=== PATIENT | male | born 1930 | race Caucasian/White ===

== ENCOUNTER 2018-04-21 08:54 | Inpatient (IN) | payer OTHER ==
[2018-04-21] MEDS ORDERED: SODIUM CHLORIDE 0.9% 500 ML INFUS.BAG IV ONE ×2 (09:16)
[2018-04-21] MEDS ORDERED: PIPERACILLIN/TAZOB 4.5 GM 4.5 GM in DEXTROSE 5%-WATER 100 ML IVPB ONE (09:24)
--- NOTE | 2018-04-21 09:24 | PDOC ---
History of Present Illness - General Chief Complaint: SIRS, Suspected/Possible Stated Complaint: PNEUMONIA Time Seen by Provider: 04/21/18 09:08 History Source: Patient Exam Limitations: No Limitations - History of Present Illness Initial Comments: 04/21/18 09:26 Gagan 88 YOM with h/o polycystic kidney disease, CKD stage 4, AAA s/p repair, CAD and CABG in 2007, HTN, HLD, GERD, COPD, anemia, allergies, depression from [facility] p/w progressive productive green cough, shortness of breath and malaise x 2 days, today with left sided chest pain that has since resolved. +subjective fevers and chills. Tolerating PO intake. Denies other sx as documented. PMD Dr. Schwarz Full code status 04/21/18 10:54 Past History - Past Medical History Allergies/Adverse Reactions: Allergies Allergy/AdvReac Type Severity Reaction Status Date / Time No Known Allergies Allergy Verified 04/21/18 09:18 Home Medications: Ambulatory Orders Acetaminophen [Pain Relief] 1,000 mg PO Q4H PRN 04/21/18 Aspirin 81 mg PO DAILY 04/21/18 Atorvastatin Ca [Lipitor] 40 mg PO HS 04/21/18 Budesonide/Formeterol Fumarate [SYMBICORT 80/4.5mcg -] 1 inh PO BID 04/21/18 Cholecalciferol (Vitamin D3) [Vitamin D3] 1,000 unit PO DAILY 04/21/18 Diltiazem [Cardizem -] 30 mg PO QID 04/21/18 Famotidine 20 mg PO DAILY 04/21/18 Ferrous Sulfate 325 mg PO DAILY 04/21/18 Hydralazine HCl 50 mg PO TID 04/21/18 Ipratropium/Albuterol Sulfate [Iprat-Albut 0.5-3(2.5) mg/3 ml] 3 ml IH Q6H 04/21 Mirtazapine 15 mg PO HS 04/21/18 Prednisone 5 mg PO DAILY 04/21/18 Propylene Glycol/Peg 400/Pf [Systane 0.3-0.4% Eye Drops] 1 each OP Q4H PRN 04/21 Sennosides [Senna Laxative] 8.6 mg PO HS 04/21/18 Review of Systems - Review of Systems Able to Perform ROS?: Yes Comments:: 04/21/18 09:27 GENERAL/CONSTITUTIONAL: +fever or chills and generalized weakness. HEAD, EYES, EARS, NOSE AND THROAT: No change in vision or hearing. No ear pain or discharge. No sore throat or mouth pain. No difficulty swallowing. + congestion. CARDIOVASCULAR: +chest pain RESPIRATORY: +SOB, cough, wheezing. no hemoptysis GASTROINTESTINAL No nausea/vomiting. No diarrhea or constipation. No bloody stools. GENITOURINARY: No hematuria, dysuria, frequency, urgency or other changes. MUSCULOSKELETAL: No joint or muscle swelling or pain. No neck or back pain. SKIN: No rash or changes in skin color or lesions. NEUROLOGIC: No headache, vertigo, loss of consciousness, or change in strength/ sensation. No gait instability. HEMATOLOGIC/LYMPHATIC: +anemia, no easy bruising/bleeding, or history of blood clots. ALLERGIC/IMMUNOLOGIC: +seasonal allergies All other systems reviewed and negative, or as documented in HPI. *Physical Exam - Physical Exam Comments: 04/21/18 09:28 General: malaised appearing, actively coughing. HEENT: NCAT, PERRL, EOMI, clear conjunctiva, anicteric, dry mucus membranes, clear oropharynx, no oral lesions.. Neck: neck supple, FROM Resp: mild respiratory distress, on supp O2, mild tachypnea. speaking full sentences but coughing fits. +bilateral expiratory wheezing and rhonchi at the bases. CVS: RRR, no murmurs, 2+ peripheral pulses throughout, no peripheral edema Abdomen: soft, NT, obese abdomen, no peritoneal signs. Back: nontender, normal inspection and ROM MSK: + nonpitting LE edema, HUTTON x4, ROM intact. No clubbing or cyanosis. normal bulk and tone. Extrem: no calf tenderness Neuro: alert, oriented appropriately; no focal neurologic deficits Skin: warm and well perfused, cap refill <2 sec, normal color 04/21/18 09:29 Heart Score/ECG Review - ECG Impressions Normal ECG: No Ischemic Changes: Yes Comment:: 04/21/18 10:35 EKG normal sinus rhythm, no interval abnormalities, narrow QRS, small ST depressions and TWI in V4-6, I and AVL in lateral distribution; Nonspecific T wave abnormalities, TWF in II, III, AVF in inferior distribution, no prior EKGs to compare to. ED Treatment Course - LABORATORY CBC & Chemistry Diagram: 04/21/18 09:18 04/21/18 09:18 - RADIOLOGY Radiology Studies Ordered: Category Date Time Status CHEST X-RAY PORTABLE* [RAD] Stat Radiology 04/21/18 09:08 Ordered Medical Decision Making - Medical Decision Making 04/21/18 09:30 Gagan 88 YOM with h/o polycystic kidney disease, CKD stage 4, HTN, HLD, GERD, COPD, anemia, allergies, depression from [facility] with cough, SOB and CP. DDx SOB: influenza, pleurisy, pneumonia, viral syndrome. effusion. anemia, electrolyte/metabolic derangements. dehydration. COPD exacerbation, heart failure, ACS Considered but clinically doubt based on HPI and PE: pulmonary embolism or dissection, most likely infectious vs chronic lung disease vs viral illness based on clinical sx and appearance. Vital signs reviewed, mild tachypnea, wheezing present. on 2L O2 for comfort, afebrile rectally, normotensive Prior notes reviewed, including admissions, discharges and consultations. laboratory results and imaging reviewed, basic labs and lytes wnl, notable for anemia (no priors, but baseline noted to be anemic) UA_glucose and ketones, prelim no s/s infection. CXR_no acute pathology, but left sided haziness with interstitial markings noted. Cardiac panel_neg trop, reassuring, less likely ACS/cardiac and more likely pulmonary. EKG normal sinus rhythm, no interval abnormalities, narrow QRS, small ST depressions and TWI in V4-6, I and AVL in lateral distribution; Nonspecific T wave abnormalities, TWF in II, III, AVF, no prior EKGs to compare to. ED course: episodes of Tachycardia to 120-130s, but no fever rectally and unchanged EKG. Clinically improved after interventions, including Duonebs x3 for wheezing, IV abx, IV solumedrol given h/o copd and wheezing/bronchitis flare. also ordered for Q4H albuterol nebs for wheezing and comfort. xanax for anxiolysis tylenol for low grade fever as source of tachy, which varies sputum and blood cultures pending, septic workup pursued. Influenza negative, strep pneumo Ag pending broad spectrum abx with vancomycin and zosyn obtained due to clinical pneumonia and risk factors including [facility] residence and comorbidities including chronic lung disease and CKD. cardiology cs with Dr. Cabezas, for r/o ACS, cp and abnormal EKG w/o priors. Dispo: Admit to telemetry for clinical pneumonia vs viral illness, COPD exac. Discussed results and management plan with pt and family member at bedside, agree with impression and plan admit to Dr. Syed Horan/Corey service 04/21/18 12:07 *DC/Admit/Observation/Transfer Diagnosis at time of Disposition: Pneumonia, COPD exacerbation, Wheezing, Sepsis, Chest pain - Discharge Dispostion Condition at time of disposition: Guarded Decision to Admit order: Yes Decision to Admit order Date/Time: 04/21/18 10:33 Decision to Admit Order Category Date Time Status Decision to Admit to Hospital Routine Admission 04/21/18 10:14 Ordered - Referrals - Patient Instructions - Post Discharge Activity
[2018-04-21] MEDS ORDERED: VANCOMYCIN 1,500 MG in DEXTROSE 5%-WATER - 250 ML IVPB ONE (09:25)
[2018-04-21] MEDS ORDERED: methylPREDNISolone NA SUCC 125 MG/2 ML VIAL IVPUSH ONE (09:34)
[2018-04-21] MEDS: ALBUTEROL SO4 2.5/IPRATROPIUM 0.5 INH SOL 3 ML VIAL.NEB. NEB SCH ×6 (09:35→22:26)
[2018-04-21 09:50] LABS: BASO % 0.5 % (0-2.0); EOS % 4.3 % (0-4.5); HEMATOCRIT 26.3 % (35.4-49); HEMOGLOBIN 9.1 GM/dL (11.7-16.9); LYMPH % 11.4 % (8-40); MCH 35.5 pg (25.7-33.7); MCHC 34.6 g/dl (32.0-35.9); MEAN CELL VOLUME 102.7 fl (80-96); MEAN PLT VOLUME 7.4 fl (7.5-11.1); MONO % 8.3 % (3.8-10.2); NEUT % 75.5 % (42.8-82.8); PLATELET COUNT 329 K/MM3 (134-434); RBC 2.56 M/mm3 (4.00-5.60); WHITE BLOOD COUNT 8.3 K/mm3 (4.0-10.0)
[2018-04-21 09:53] LABS: VENOUS PC02 44.3 mmHg (38-52); VENOUS PH 7.29 (7.32-7.42); VENOUS PO2 53.5 mmHg (28-48)
[2018-04-21] MEDS ORDERED: VANCOMYCIN 1,500 MG in DEXTROSE 5%-WATER - 500 ML IVPB ONE (10:06)
[2018-04-21 10:07] LABS: URINE APPEARANCE CLEAR; URINE BILIRUBIN NEGATIVE (<2.0 mg/dL); URINE COLOR STRAW; URINE GLUCOSE (UA) 1+ (NEGATIVE); URINE KETONE NEGATIVE (NEGATIVE); URINE LEUK ESTERASE NEGATIVE (NEGATIVE); URINE NITRITE NEGATIVE (NEGATIVE); URINE PROTEIN 2+ (NEGATIVE); URINE UROBILINOGEN NEGATIVE mg/dL (0.2-1.0)
[2018-04-21 10:11] LABS: INR 1.03 (0.83-1.09); PROTHROMBIN TIME (PATIENT) 12.1 SEC (9.7-13.0)
[2018-04-21 10:15] LABS: ACTIVATED PTT 29.1 SECONDS (25.2-36.5)
[2018-04-21 10:16] LABS: ALBUMIN 3.4 g/dl (3.4-5.0); ALK PHOS 135 U/L (45-117); ANION GAP 11 MMOL/L (8-16); BILIRUBIN,TOTAL 0.3 mg/dL (0.2-1); BLOOD UREA NITROGEN 36 mg/dL (7-18); CHLORIDE 113 mmol/L (98-107); CO2 22 mmol/L (21-32); CREATININE 2.7 mg/dL (0.55-1.3); GLUCOSE,RANDOM 100 mg/dL (74-106); POTASSIUM 3.5 mmol/L (3.5-5.1); SGOT/AST 11 U/L (15-37); SGPT/ALT 16 U/L (13-61); SODIUM 145 mmol/L (136-145); TOT PROT 6.5 g/dl (6.4-8.2)
[2018-04-21 10:17] LABS: URINE MUCUS RARE
[2018-04-21] MEDS ORDERED: ALPRAZolam 0.25 MG TABLET PO ONE (10:54)
[2018-04-21] MEDS ORDERED: ACETAMINOPHEN 325 MG TABLET (FP) PO PRN (11:36)
[2018-04-21] MEDS ORDERED: ALBUTEROL SO4 2.5/IPRATROPIUM 0.5 INH SOL 3 ML VIAL.NEB. NEB SCH (11:45)
[2018-04-21] MEDS ORDERED: ALBUTEROL SO4 0.083% IH SOL 2.5 MG/3 ML VIAL.NEB. NEB PRN (11:56)
[2018-04-21] MEDS ORDERED: ACETAMINOPHEN 1000 MG/100 ML VIAL (NON FORMULARY) IVPB ONE (12:06)
--- NOTE | 2018-04-21 13:37 | CON.CARD ---
Consult Consult Specialty:: Cardiology Referred by:: Dr Puentes Reason for Consultation:: cp - History of Present Illness Chief Complaint: sob cough History of Present Illness: 88 year old man with history of PCKD, CKD stage 4, AAA s/p repair, CAD and CABG in 2006, HTN, HLD, GERD, COPD, anemia, allergies, depression from [facility] admitted with progressive productive green cough, shortness of breath and malaise x 2 days, today with left sided chest pain that has since resolved. +subjective fevers and chills. No orthopnea, pnd or edema. Baseline wheelchair bound. ECG LVH with repolarization changes. started on abx for pneumonia. - History Source History Provided By: Patient, Medical Record - Smoking History Smoking history: Never smoked Home Medications - Allergies Allergies/Adverse Reactions: Allergies Allergy/AdvReac Type Severity Reaction Status Date / Time No Known Allergies Allergy Verified 04/21/18 09:18 - Home Medications Home Medications: Ambulatory Orders Acetaminophen [Pain Relief] 1,000 mg PO Q4H PRN 04/21/18 Aspirin 81 mg PO DAILY 04/21/18 Atorvastatin Ca [Lipitor] 40 mg PO HS 04/21/18 Budesonide/Formeterol Fumarate [SYMBICORT 80/4.5mcg -] 1 inh PO BID 04/21/18 Cholecalciferol (Vitamin D3) [Vitamin D3] 1,000 unit PO DAILY 04/21/18 Diltiazem [Cardizem -] 30 mg PO QID 04/21/18 Famotidine 20 mg PO DAILY 04/21/18 Ferrous Sulfate 325 mg PO DAILY 04/21/18 Hydralazine HCl 50 mg PO TID 04/21/18 Ipratropium/Albuterol Sulfate [Iprat-Albut 0.5-3(2.5) mg/3 ml] 3 ml IH Q6H 04/21 Mirtazapine 15 mg PO HS 04/21/18 Prednisone 5 mg PO DAILY 04/21/18 Propylene Glycol/Peg 400/Pf [Systane 0.3-0.4% Eye Drops] 1 each OP Q4H PRN 04/21 Sennosides [Senna Laxative] 8.6 mg PO HS 04/21/18 Vital Signs: Vital Signs Temperature 98.9 F 04/21/18 11:00 Pulse Rate 117 H 04/21/18 12:00 Respiratory Rate 24 H 04/21/18 12:00 Blood Pressure 158/85 04/21/18 12:00 O2 Sat by Pulse Oximetry (%) 97 04/21/18 12:00 Constitutional: Yes: No Distress, Calm Eyes: Yes: Conjunctiva Clear, EOM Intact HENT: Yes: Atraumatic, Normocephalic Neck: Yes: Trachea Midline Respiratory: Yes: Rhonchi (bilat change w cough) Gastrointestinal: Yes: Normal Bowel Sounds, Soft Cardiovascular: Yes: Regular Rate and Rhythm JVD: Yes Carotid Bruit: No PMI: Non-Displaced Heart Sounds: Yes: S1, S2 Edema: No Peripheral Pulses WNL: Yes - Other Data Labs, Other Data: CBC, BMP 04/21/18 09:18 04/21/18 09:18 INR, PTT INR 1.03 (0.83-1.09) 04/21/18 09:18 Troponin, BNP 04/21/18 04/21/18 09:18 11:17 Troponin I 0.04 0.05 Troponin, BNP 04/21/18 04/21/18 09:18 11:17 Troponin I 0.04 0.05 Imaging - Results Chest X-ray: Report Reviewed EKG: Report Reviewed Assessment/Plan 88 year old man with history of PCKD, CKD stage 4, AAA s/p repair, CAD and CABG in 2006, HTN, HLD, GERD, COPD, anemia, allergies, depression from [facility] admitted with progressive productive green cough, shortness of breath and malaise x 2 days, today with left sided chest pain that has since resolved. +subjective fevers and chills. No orthopnea, pnd or edema. Baseline wheelchair bound. ECG LVH with repolarization changes. started on abx for pneumonia. 1. chest pain -likely due to cough and clinically has pneumonia. -no plans for ischemia workup at present. -no need for telemetry monitoring. -no evidence of CHF on examination -treat for pneumonia, sepsis lactic acidosis.
--- NOTE | 2018-04-21 14:22 | CON.ID ---
Consult Consult Specialty:: infectious disease Referred by:: iona Reason for Consultation:: possible pneumonia - History of Present Illness Chief Complaint: cough with green sputum for two days. 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 [facility] no recent admissions 2 days history of green sputum and cough with malaise chest pain today no vomiting alert no diarrhea or dysuria influenza screen negative denies fevers or chills - History Source History Provided By: Patient, Medical Record Limitations to Obtaining History: No Limitations - Past Medical History Cardio/Vascular: Yes: CAD, HTN, Hyperlipdemia Pulmonary: Yes: Bronchitis, COPD Gastrointestinal: Yes: GERD Renal/: Yes: Renal Inusuff, Other (polycystic kidney disease) Heme/Onc: Yes: Anemia - Past Surgical History Past Surgical History: Yes: AAA Repair, CABG - Smoking History Smoking history: Never smoked - Social History Usual Living Arrangement: Group Home 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 History of Recent Travel: No (echo 2 years ago) Home Medications - Allergies Allergies/Adverse Reactions: Allergies Allergy/AdvReac Type Severity Reaction Status Date / Time No Known Allergies Allergy Verified 04/21/18 09:18 - Home Medications Home Medications: Ambulatory Orders Acetaminophen [Pain Relief] 1,000 mg PO Q4H PRN 04/21/18 Aspirin 81 mg PO DAILY 04/21/18 Atorvastatin Ca [Lipitor] 40 mg PO HS 04/21/18 Budesonide/Formeterol Fumarate [SYMBICORT 80/4.5mcg -] 1 inh PO BID 04/21/18 Cholecalciferol (Vitamin D3) [Vitamin D3] 1,000 unit PO DAILY 04/21/18 Diltiazem [Cardizem -] 30 mg PO QID 04/21/18 Famotidine 20 mg PO DAILY 04/21/18 Ferrous Sulfate 325 mg PO DAILY 04/21/18 Hydralazine HCl 50 mg PO TID 04/21/18 Ipratropium/Albuterol Sulfate [Iprat-Albut 0.5-3(2.5) mg/3 ml] 3 ml IH Q6H 04/21 Mirtazapine 15 mg PO HS 04/21/18 Prednisone 5 mg PO DAILY 04/21/18 Propylene Glycol/Peg 400/Pf [Systane 0.3-0.4% Eye Drops] 1 each OP Q4H PRN 04/21 Sennosides [Senna Laxative] 8.6 mg PO HS 04/21/18 Family Disease History - Family Disease History Family History: Denies Review of Systems - Review of Systems Constitutional: reports: Malaise Eyes: reports: No Symptoms HENT: reports: No Symptoms. denies: Difficult Swallowing, Throat Pain, Toothache Neck: reports: No Symptoms Cardiovascular: reports: Chest Pain Respiratory: reports: Cough, SOB Gastrointestinal: reports: No Symptoms Genitourinary: denies: Burning, Discharge, Dysuria Physical Exam Vital Signs: Vital Signs Temperature 98.9 F 04/21/18 11:00 Pulse Rate 117 H 04/21/18 12:00 Respiratory Rate 24 H 04/21/18 12:00 Blood Pressure 158/85 04/21/18 12:00 O2 Sat by Pulse Oximetry (%) 97 04/21/18 12:00 Constitutional: Yes: Well Nourished, No Distress, Calm Eyes: Yes: Conjunctiva Clear, EOM Intact HENT: Yes: Atraumatic, Normocephalic. No: Pharyngeal Erythema, Thrush Neck: Yes: Supple, Trachea Midline Cardiovascular: Yes: Regular Rate and Rhythm Respiratory: Yes: Rhonchi (scattered) Gastrointestinal: Yes: Normal Bowel Sounds, Soft, Abdomen, Obese. No: Tenderness, Rebound ...Rectal Exam: Yes: Deferred Edema: No Psychiatric: Yes: Alert, Oriented Labs: CBC, BMP 04/21/18 09:18 04/21/18 09:18 cultures pending Imaging - Results Chest X-ray: Report Reviewed, Image Reviewed (clear) Problem List - Problems (1) COPD exacerbation Code(s): J44.1 - CHRONIC OBSTRUCTIVE PULMONARY DISEASE W (ACUTE) EXACERBATION (2) Bronchitis Code(s): J40 - BRONCHITIS, NOT SPECIFIED ACUTE OR CHRONIC (3) CKD (chronic kidney disease) Code(s): N18.9 - CHRONIC KIDNEY DISEASE, UNSPECIFIED (4) Chest pain Code(s): R07.9 - CHEST PAIN, UNSPECIFIED Assessment/Plan suspect bronchitis but cannot r/o pneumonia will get noncontrast chest ct f/u cultures RSV antigen legionella/pneumococcal urinary antigens got vancomycin and zosyn in Ed willl switch to cefrtiaxone adjust antibiotics for CKD further management per cardiology for chest pain f/u studies
[2018-04-21] MEDS ORDERED: hydrALAZINE HCL 25 MG TABLET (FP) ONE ×2 (14:43→20:39)
[2018-04-21] MEDS ORDERED: dilTIAZem HCL 30 MG TABLET (FP) ONE ×3 (14:43→20:39)
[2018-04-21] MEDS ORDERED: CEFTRIAXONE 2 GM/100 ML BAG IVPB ONE (14:44)
[2018-04-21] MEDS ORDERED: methylPREDNISolone NA SUCC 40 MG/1 ML VIAL ONE ×2 (14:44→20:40)
[2018-04-21] MEDS: hydrALAZINE HCL 50 MG TABLET (FP) PO SCH ×2 (14:49→22:26)
[2018-04-21] MEDS: dilTIAZem HCL 30 MG TABLET (FP) PO SCH ×3 (14:50→22:26)
[2018-04-21] MEDS: CEFTRIAXONE 2 GM in DEXTROSE 5%-WATER 100 ML IVPB SCH (14:50)
[2018-04-21] MEDS ORDERED: methylPREDNISolone NA SUCC 40 MG/1 ML VIAL IVPUSH SCH (15:00)
--- NOTE | 2018-04-21 15:18 | CON.PULM ---
Consult Consult Specialty:: PULMONARY Referred by:: ROSA M Reason for Consultation:: COUGH/MUCOUS/SOB - History of Present Illness Chief Complaint: COUGH/WHEEZE/SOB/SPUTUM PRODUCTION History of Present Illness: Father Gagan 88 Y/O Male with h/o polycystic kidney disease, CKD stage 4, AAA s /p repair, CAD and CABG in 2006, HTN, HLD, GERD, COPD, anemia, allergies, depression from [facility] p/w progressive productive green cough, shortness of breath and malaise x 2 days, today with left sided chest pain that has since resolved. +subjective fevers and chills. Tolerating PO intake. Denies other sx as documented. 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 Place of : [facility] History of Recent Travel: No (echo 2 years ago) Home Medications - Allergies Allergies/Adverse Reactions: Allergies Allergy/AdvReac Type Severity Reaction Status Date / Time No Known Allergies Allergy Verified 04/21/18 09:18 - Home Medications Home Medications: Ambulatory Orders Acetaminophen [Pain Relief] 1,000 mg PO Q4H PRN 04/21/18 Aspirin 81 mg PO DAILY 04/21/18 Atorvastatin Ca [Lipitor] 40 mg PO HS 04/21/18 Budesonide/Formeterol Fumarate [SYMBICORT 80/4.5mcg -] 1 inh PO BID 04/21/18 Cholecalciferol (Vitamin D3) [Vitamin D3] 1,000 unit PO DAILY 04/21/18 Diltiazem [Cardizem -] 30 mg PO QID 04/21/18 Famotidine 20 mg PO DAILY 04/21/18 Ferrous Sulfate 325 mg PO DAILY 04/21/18 Hydralazine HCl 50 mg PO TID 04/21/18 Ipratropium/Albuterol Sulfate [Iprat-Albut 0.5-3(2.5) mg/3 ml] 3 ml IH Q6H 04/21 Mirtazapine 15 mg PO HS 04/21/18 Prednisone 5 mg PO DAILY 04/21/18 Propylene Glycol/Peg 400/Pf [Systane 0.3-0.4% Eye Drops] 1 each OP Q4H PRN 04/21 Sennosides [Senna Laxative] 8.6 mg PO HS 04/21/18 Family Disease History - Family Disease History Family History: Unremarkable Review of Systems - Review of Systems Constitutional: denies: Fever Eyes: denies: Blurred Vision HENT: denies: Difficult Swallowing Neck: denies: Decreased ROM Cardiovascular: denies: Chest Pain Respiratory: reports: Cough, Exercise Intolerance, SOB, SOB on Exertion, Wheezing. denies: Hemoptysis Gastrointestinal: denies: Abdominal Pain Genitourinary: denies: Burning Physical Exam Vital Sings: Vital Signs Temperature 98.9 F 04/21/18 11:00 Pulse Rate 117 H 04/21/18 12:00 Respiratory Rate 24 H 04/21/18 12:00 Blood Pressure 158/85 04/21/18 12:00 O2 Sat by Pulse Oximetry (%) 97 04/21/18 12:00 Constitutional: Yes: Calm Eyes: Yes: EOM Intact HENT: Yes: Normocephalic Neck: Yes: Trachea Midline Cardiovascular: Yes: Regular Rate and Rhythm Respiratory: Yes: Rhonchi, Wheezes Gastrointestinal: Yes: Normal Bowel Sounds, Abdomen, Obese Edema: Yes Edema: LLE: 1+, RLE: 1+ Integumentary: Yes: WNL Labs: CBC, BMP 04/21/18 09:18 04/21/18 09:18 Imaging - Results Chest X-ray: Report Reviewed, Image Reviewed Problem List - Problems (1) Bronchitis Code(s): J40 - BRONCHITIS, NOT SPECIFIED ACUTE OR CHRONIC (2) CKD (chronic kidney disease) Code(s): N18.9 - CHRONIC KIDNEY DISEASE, UNSPECIFIED (3) COPD exacerbation Code(s): J44.1 - CHRONIC OBSTRUCTIVE PULMONARY DISEASE W (ACUTE) EXACERBATION (4) Chest pain Code(s): R07.9 - CHEST PAIN, UNSPECIFIED (5) Pneumonia Code(s): J18.9 - PNEUMONIA, UNSPECIFIED ORGANISM (6) Sepsis Code(s): A41.9 - SEPSIS, UNSPECIFIED ORGANISM (7) Wheezing Code(s): R06.2 - WHEEZING Assessment/Plan R/O PNEUMONIA LIKELY ACUTE ASTHMATIC BRONCHITIS MULTIPLE COMORBID CONDITIONS LISTED AGREE WITH PANCULTURE/URINARY ANTIGENS INFLU SWAB - EMPIRIC ANTIBIOCS PER ID O2 SUPPLEMENTATION/BRONCHODILATORS/SHORT COURSE STEROIDS Joselin CARPENTER MD
[2018-04-21] MEDS ORDERED: ALBUTEROL SO4 2.5/IPRATROPIUM 0.5 INH SOL 3 ML VIAL.NEB. NEB ONE ×2 (16:45→20:48)
[2018-04-21] MEDS ORDERED: PIPERACILLIN/TAZOB 2.25 GM 2.25 GM in DEXTROSE 5%-WATER - 50 ML IVPB SCH (18:00)
--- NOTE | 2018-04-21 18:49 | HP ---
Admitting History and Physical - Primary Care Physician PCP: Blossom Schwarz - Admission Chief Complaint: cough, fever, chest pain ,SOB History of Present Illness: ER HISTORY History of Present Illness Initial Comments: 04/21/18 09:26 Gagan 88 YOM with h/o polycystic kidney disease, CKD stage 4, AAA s/p repair, CAD and CABG in 2006, HTN, HLD, GERD, COPD, anemia, allergies, depression from [facility] p/w progressive productive green cough, shortness of breath and malaise x 2 days, today with left sided chest pain that has since resolved. +subjective fevers and chills. Tolerating PO intake. Denies other sx as documented. PMD Dr. Schwarz Full code status Pt seen by me in ER- Has been having cough with greenish sputum, sob and chest pain x 2 days- currently chest pain-free. No dizziness, resides in [place]. 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 History of Recent Travel: No (echo 2 years ago) Home Medications - Allergies Allergies/Adverse Reactions: Allergies Allergy/AdvReac Type Severity Reaction Status Date / Time No Known Allergies Allergy Verified 04/21/18 09:18 - Home Medications Home Medications: Ambulatory Orders Acetaminophen [Pain Relief] 1,000 mg PO Q4H PRN 04/21/18 Aspirin 81 mg PO DAILY 04/21/18 Atorvastatin Ca [Lipitor] 40 mg PO HS 04/21/18 Budesonide/Formeterol Fumarate [SYMBICORT 80/4.5mcg -] 1 inh PO BID 04/21/18 Cholecalciferol (Vitamin D3) [Vitamin D3] 1,000 unit PO DAILY 04/21/18 Diltiazem [Cardizem -] 30 mg PO QID 04/21/18 Famotidine 20 mg PO DAILY 04/21/18 Ferrous Sulfate 325 mg PO DAILY 04/21/18 Hydralazine HCl 50 mg PO TID 04/21/18 Ipratropium/Albuterol Sulfate [Iprat-Albut 0.5-3(2.5) mg/3 ml] 3 ml IH Q6H 04/21 Mirtazapine 15 mg PO HS 04/21/18 Prednisone 5 mg PO DAILY 04/21/18 Propylene Glycol/Peg 400/Pf [Systane 0.3-0.4% Eye Drops] 1 each OP Q4H PRN 04/21 Sennosides [Senna Laxative] 8.6 mg PO HS 04/21/18 Review of Systems - Review of Systems Constitutional: reports: Chills, Fever, Weakness. denies: Loss of Appetite Cardiovascular: reports: Chest Pain, Shortness of Breath. denies: Palpitations Respiratory: reports: Cough, SOB, Wheezing Physical Examination Vital Signs: Vital Signs Temperature 98.9 F 04/21/18 11:00 Pulse Rate 22 L 04/21/18 14:30 Respiratory Rate 24 H 04/21/18 14:30 Blood Pressure 144/56 L 04/21/18 14:30 O2 Sat by Pulse Oximetry (%) 98 04/21/18 14:30 Constitutional: Yes: No Distress, Calm Cardiovascular: Yes: Regular Rate and Rhythm Respiratory: Yes: Diminished, Rhonchi Gastrointestinal: Yes: Normal Bowel Sounds, Soft, Abdomen, Obese. No: Tenderness Edema: Yes Edema: LLE: Trace, RLE: Trace Psychiatric: Yes: Alert, Oriented Labs: CBC, BMP 04/21/18 09:18 04/21/18 09:18 Imaging - Results Chest X-ray: Image Reviewed EKG: Image Reviewed Problem List - Problems (1) CKD (chronic kidney disease) Code(s): N18.9 - CHRONIC KIDNEY DISEASE, UNSPECIFIED Qualifiers: Chronic kidney disease stage: stage 3 (moderate) Qualified Code(s): N18.3 - Chronic kidney disease, stage 3 (moderate) (2) COPD exacerbation Code(s): J44.1 - CHRONIC OBSTRUCTIVE PULMONARY DISEASE W (ACUTE) EXACERBATION (3) Chest pain Code(s): R07.9 - CHEST PAIN, UNSPECIFIED (4) Pneumonia Code(s): J18.9 - PNEUMONIA, UNSPECIFIED ORGANISM (5) Sepsis Code(s): A41.9 - SEPSIS, UNSPECIFIED ORGANISM Assessment/Plan PLAN COPD Exacerbation -- on Solumedrol -- Appreciate Pulmonary evaluation -- nebs. O2 Chest pain -- serial cardiac enzymes -- telemetry monitoring -- check Echo -- Cardiology eval Pneumonia -- possible NH acquired pneumonia -- ID eval -- iv antibiotics -- Nebs, O2 -- lactate decreased with iv fluids CKD -- unknown baseline- will need to get NH records -- monitor renal function
[2018-04-21] MEDS ORDERED: ATORVASTATIN CA 40 MG TABLET (FP) ONE (20:39)
[2018-04-21] MEDS ORDERED: MIRTAZAPINE 15 MG TABLET (FP) ONE (20:40)
[2018-04-21] MEDS: methylPREDNISolone NA SUCC 40 MG/1 ML VIAL IVPUSH SCH (22:26)
[2018-04-21] MEDS: BUDESONIDE/FORMETEROL FUMARATE 80/4.5 mcg INHALER IH SCH (22:26)
[2018-04-21] MEDS: SENNOSIDES 8.6MG TABLET (FP) PO SCH (22:26)
[2018-04-21] MEDS: MIRTAZAPINE 15 MG TABLET (FP) PO SCH (22:26)
[2018-04-21] MEDS: ATORVASTATIN CA 40 MG TABLET (FP) PO SCH (22:26)
[2018-04-22] MEDS ORDERED: hydrALAZINE HCL 25 MG TABLET (FP) ONE ×2 (02:47→16:16)
[2018-04-22] MEDS ORDERED: methylPREDNISolone NA SUCC 40 MG/1 ML VIAL ONE ×2 (02:48→16:16)
[2018-04-22] MEDS: methylPREDNISolone NA SUCC 40 MG/1 ML VIAL IVPUSH SCH ×4 (03:00→22:31)
[2018-04-22] MEDS: hydrALAZINE HCL 50 MG TABLET (FP) PO SCH ×3 (05:52→22:31)
[2018-04-22 07:00] LABS: BASO % 0.1 % (0-2.0); HEMATOCRIT 26.5 % (35.4-49); HEMOGLOBIN 9.1 GM/dL (11.7-16.9); LYMPH % 3.6 % (8-40); MCH 35.3 pg (25.7-33.7); MCHC 34.4 g/dl (32.0-35.9); MEAN CELL VOLUME 102.7 fl (80-96); MEAN PLT VOLUME 7.8 fl (7.5-11.1); MONO % 1.3 % (3.8-10.2); PLATELET COUNT 340 K/MM3 (134-434); RBC 2.58 M/mm3 (4.00-5.60); RDW 14.9 % (11.9-15.9); WHITE BLOOD COUNT 11.8 K/mm3 (4.0-10.0)
[2018-04-22 07:15] LABS: ALBUMIN 3.4 g/dl (3.4-5.0); ALK PHOS 117 U/L (45-117); ANION GAP 13 MMOL/L (8-16); BILIRUBIN,TOTAL 0.3 mg/dL (0.2-1); BLOOD UREA NITROGEN 38 mg/dL (7-18); CALCIUM 8.1 mg/dL (8.5-10.1); CHLORIDE 112 mmol/L (98-107); CO2 19 mmol/L (21-32); CREATININE 2.9 mg/dL (0.55-1.3); GLUCOSE,RANDOM 210 mg/dL (74-106); POTASSIUM 3.9 mmol/L (3.5-5.1); SGOT/AST 10 U/L (15-37); SGPT/ALT 15 U/L (13-61); SODIUM 143 mmol/L (136-145); TOT PROT 6.8 g/dl (6.4-8.2)
[2018-04-22] MEDS: ALBUTEROL SO4 2.5/IPRATROPIUM 0.5 INH SOL 3 ML VIAL.NEB. NEB SCH ×4 (08:46→21:31)
[2018-04-22] MEDS: dilTIAZem HCL 30 MG TABLET (FP) PO SCH ×4 (08:48→23:07)
[2018-04-22] MEDS ORDERED: PIPERACILLIN/TAZOB 2.25 GM 2.25 GM in DEXTROSE 5%-WATER - 50 ML IVPB SCH (10:00)
[2018-04-22] MEDS: BUDESONIDE/FORMETEROL FUMARATE 80/4.5 mcg INHALER IH SCH ×2 (10:06→22:37)
--- NOTE | 2018-04-22 10:06 | PN ---
Progress Note (short form) - Note Progress Note: continues to cough no chest pain hungry Vital Signs Period Temp Pulse Resp BP Sys/Cruz Pulse Ox Last 24 Hr 97.8 F-98.9 F 22-135 20-32 134-174/56-85 96-99 cor-rrr lungs bilateral rhonchi abd soft,nt ext no edema CBC, BMP 04/22/18 06:30 04/22/18 06:30 Microbiology 04/21/18 09:18 Blood - Peripheral Venous Blood Culture - Preliminary NO GROWTH OBTAINED AFTER 24 HOURS, INCUBATION TO CONTINUE FOR 4 DAYS. 04/21/18 09:18 Blood - Peripheral Venous Blood Culture - Preliminary NO GROWTH OBTAINED AFTER 24 HOURS, INCUBATION TO CONTINUE FOR 4 DAYS. 04/21/18 12:14 Sputum - Expectorated Gram Stain - Final 04/21/18 12:14 Sputum - Expectorated Sputum Culture - Preliminary Proteus Species Alpha Hemolytic Streptococcus 04/21/18 09:18 Urine - Urine Clean Catch Urine Culture - Final 04/21/18 09:50 Nasopharyngeal Swab Influenza Types A,B Antigen - Final 04/21/18 09:50 Nasopharyngeal Swab - Final chest ct- no infiltrate a/p suspect bronchitis copd exacerbation CKD continue ceftriaxone Problem List - Problems (1) COPD exacerbation Code(s): J44.1 - CHRONIC OBSTRUCTIVE PULMONARY DISEASE W (ACUTE) EXACERBATION (2) Bronchitis Code(s): J40 - BRONCHITIS, NOT SPECIFIED ACUTE OR CHRONIC (3) CKD (chronic kidney disease) Code(s): N18.9 - CHRONIC KIDNEY DISEASE, UNSPECIFIED Qualifiers: Chronic kidney disease stage: stage 3 (moderate) Qualified Code(s): N18.3 - Chronic kidney disease, stage 3 (moderate) (4) Chest pain Code(s): R07.9 - CHEST PAIN, UNSPECIFIED
--- NOTE | 2018-04-22 10:32 | PN ---
Progress Note (short form) - Note Progress Note: pt seen/ examined in er. chart reviewed. still coughing says feels better though no distress Vital Signs Temp 98.2 F 04/22/18 05:38 Pulse 79 04/22/18 05:38 Resp 22 H 04/22/18 05:38 BP 163/71 04/22/18 05:38 Pulse Ox 96 04/22/18 01:38 Intake & Output 04/21/18 04/21/18 04/22/18 11:59 23:59 11:59 Output Total 600 Balance -600 Weight Output: Urine 600 Void 600 Other: Voiding Method Urinal Height Body Mass Index (BMI) Weight Measurement Method Active Medications Acetaminophen (Tylenol -) 650 mg PO Q6H PRN PRN Reason: FEVER Albuterol Sulfate (Ventolin 0.083% Nebulizer Soln -) 1 amp NEB Q4H PRN PRN Reason: SHORT OF BREATH/WHEEZING Albuterol/Ipratropium (Duoneb -) 1 amp NEB RQID [facility] Last Admin: 04/21/18 22:26 Dose: 1 amp Aspirin (Asa -) 81 mg PO DAILY [facility] Atorvastatin Calcium (Lipitor -) 40 mg PO HS [facility] Last Admin: 04/21/18 22:26 Dose: 40 mg Budesonide/Formoterol Fumarate (Symbicort 80/4.5mcg -) 1 puff IH BID [facility] Last Admin: 04/21/18 22:26 Dose: 1 puff Diltiazem HCl (Cardizem -) 30 mg PO Q6HPO [facility] Hydralazine HCl (Apresoline -) 50 mg PO TID [facility] Last Admin: 04/22/18 05:52 Dose: 50 mg Ceftriaxone Sodium 2 gm/ (Dextrose) 100 mls @ 100 mls/hr IVPB DAILY [facility]; Protocol Last Admin: 04/21/18 14:50 Dose: 100 mls/hr Methylprednisolone Sodium Succinate (Solu-Medrol -) 40 mg IVPUSH Q6H-IV [facility] Last Admin: 04/22/18 03:00 Dose: 40 mg Mirtazapine (Remeron -) 15 mg PO HS [facility] Last Admin: 04/21/18 22:26 Dose: 15 mg Pantoprazole Sodium (Protonix -) 40 mg PO DAILY [facility] Senna (Senna -) 1 tab PO [facility] Last Admin: 04/21/18 22:26 Dose: 1 tab CBC, BMP 04/22/18 06:30 04/22/18 06:30 Microbiology 04/21/18 09:18 Blood Culture - Preliminary Blood - Peripheral Venous NO GROWTH OBTAINED AFTER 24 HOURS, INCUBATION TO CONTINUE FOR 4 DAYS. 04/21/18 09:18 Blood Culture - Preliminary Blood - Peripheral Venous NO GROWTH OBTAINED AFTER 24 HOURS, INCUBATION TO CONTINUE FOR 4 DAYS. 04/21/18 12:14 Gram Stain - Final Sputum - Expectorated Sputum Culture - Preliminary Proteus Species Alpha Hemolytic Streptococcus 04/21/18 09:18 Urine Culture - Final Urine - Urine Clean Catch 04/21/18 09:50 Influenza Types A,B Antigen - Final Nasopharyngeal Swab - Final ct chest - Pending Physical Examination Constitutional: Yes: No Distress, comfortable. Obese Cardiovascular: Yes: Regular Rate and Rhythm Respiratory: Yes: Diminished, Bilateral Rhonchi Gastrointestinal: Yes: Normal Bowel Sounds, Soft, Abdomen, Obese. No: Tenderness Edema: Yes Edema: LLE: Trace, RLE: Trace Psychiatric: Yes: Alert, Oriented Imaging - Results Chest X-ray: Image Reviewed EKG: Image Reviewed Problem List - Problems (1) CKD (chronic kidney disease) Code(s): N18.9 - CHRONIC KIDNEY DISEASE, UNSPECIFIED Qualifiers: Chronic kidney disease stage: stage 3 (moderate) Qualified Code(s): N18.3 - Chronic kidney disease, stage 3 (moderate) (2) COPD exacerbation Code(s): J44.1 - CHRONIC OBSTRUCTIVE PULMONARY DISEASE W (ACUTE) EXACERBATION (3) Chest pain Code(s): R07.9 - CHEST PAIN, UNSPECIFIED (4) Pneumonia Code(s): J18.9 - PNEUMONIA, UNSPECIFIED ORGANISM (5) Sepsis Code(s): A41.9 - SEPSIS, UNSPECIFIED ORGANISM Assessment/Plan -- on Solumedrol -- Abx -- nebs. O2 - ct chest - continue other meds - dvt prophylaxis - will follow
[2018-04-22] MEDS: ASPIRIN 81 MG CHEWABLE TABLETS PO SCH (10:48)
[2018-04-22] MEDS: PANTOPRAZOLE 40 MG TABLET (FP) PO SCH (10:49)
[2018-04-22] MEDS: CEFTRIAXONE 2 GM in DEXTROSE 5%-WATER 100 ML IVPB SCH (11:52)
[2018-04-22] MEDS: ENOXAPARIN NA (PORCINE) 30 MG/0.3 ML DISP.SYRIN SQ SCH (11:52)
[2018-04-22] MEDS ORDERED: CEFTRIAXONE 2 GM/100 ML BAG IVPB ONE (11:53)
[2018-04-22] MEDS ORDERED: ENOXAPARIN NA (PORCINE) 30 MG/0.3 ML DISP.SYRIN SQ ONE (11:53)
--- NOTE | 2018-04-22 11:58 | EKG ---
Test Reason : Blood Pressure : / mmHG Vent. Rate : 091 BPM Atrial Rate : 091 BPM P-R Int : 000 ms QRS Dur : 102 ms QT Int : 406 ms P-R-T Axes : 000 022 259 degrees QTc Int : 499 ms PROBABLE SINUS RHYTHM PROLONGED QT ABNORMAL ECG WHEN COMPARED WITH ECG OF 21-APR-2018 09:09, T WAVE VARIATION Confirmed by AURA FITZPATRICK MD ([id number]) on 04/22/2018 11:58:07 AM Referred By: Confirmed By:AURA FITZPATRICK MD
--- NOTE | 2018-04-22 11:58 | EKG ---
Test Reason : Blood Pressure : / mmHG Vent. Rate : 078 BPM Atrial Rate : 078 BPM P-R Int : 000 ms QRS Dur : 098 ms QT Int : 398 ms P-R-T Axes : 000 022 114 degrees QTc Int : 453 ms SINUS RHYTHM NONSPECIFIC ST AND T WAVE ABNORMALITY ABNORMAL ECG NO PREVIOUS ECGS AVAILABLE Confirmed by AURA FITZPATRICK MD ([id number]) on 04/22/2018 11:58:20 AM Referred By: Confirmed By:AURA FITZPATRICK MD
--- NOTE | 2018-04-22 13:13 | PN ---
Progress Note (short form) - Note Progress Note: PULMONARY States he feels much better. Wants to go back to [facility]. +nonproductive cough. Vital Signs Period Temp Pulse Resp BP Sys/Cruz Pulse Ox Last 24 Hr 97.8 F-98.2 F 22-121 20-26 134-163/56-82 96-98 Gen: mildly tachypneic with speaking Heart: RRR Lung: bilateral rhonchi Abd: soft, nontender Ext: no edema CBC, BMP 04/22/18 06:30 04/22/18 06:30 Active Medications Acetaminophen (Tylenol -) 650 mg PO Q6H PRN PRN Reason: FEVER Albuterol Sulfate (Ventolin 0.083% Nebulizer Soln -) 1 amp NEB Q4H PRN PRN Reason: SHORT OF BREATH/WHEEZING Albuterol/Ipratropium (Duoneb -) 1 amp NEB RQID [facility] Last Admin: 04/22/18 11:52 Dose: Not Given Aspirin (Asa -) 81 mg PO DAILY [facility] Last Admin: 04/22/18 10:48 Dose: 81 mg Atorvastatin Calcium (Lipitor -) 40 mg PO HS [facility] Last Admin: 04/21/18 22:26 Dose: 40 mg Budesonide/Formoterol Fumarate (Symbicort 80/4.5mcg -) 1 puff IH BID [facility] Last Admin: 04/21/18 22:26 Dose: 1 puff Diltiazem HCl (Cardizem -) 30 mg PO Q6HPO [facility] Last Admin: 04/22/18 12:19 Dose: 30 mg Enoxaparin Sodium (Lovenox -) 30 mg SQ DAILY [facility] Last Admin: 04/22/18 11:52 Dose: 30 mg Hydralazine HCl (Apresoline -) 50 mg PO TID [facility] Last Admin: 04/22/18 05:52 Dose: 50 mg Ceftriaxone Sodium 2 gm/ (Dextrose) 100 mls @ 100 mls/hr IVPB DAILY [facility]; Protocol Last Admin: 04/22/18 11:52 Dose: 100 mls/hr Methylprednisolone Sodium Succinate (Solu-Medrol -) 40 mg IVPUSH Q6H-IV [facility] Last Admin: 04/22/18 09:48 Dose: 40 mg Mirtazapine (Remeron -) 15 mg PO HS [facility] Last Admin: 04/21/18 22:26 Dose: 15 mg Pantoprazole Sodium (Protonix -) 40 mg PO DAILY [facility] Last Admin: 04/22/18 10:49 Dose: 40 mg Senna (Senna -) 1 tab PO [facility] Last Admin: 04/21/18 22:26 Dose: 1 tab A/P Acute Bronchitis Acute COPD Exacerbation CAD s/p CABG CKD HTN Hyperlipidemia - continue medrol at current dose - inhaled bronchodilators standing and PRN - antibiotics per ID - O2 to keep SpO2 >90% - DVT prophylaxis
--- NOTE | 2018-04-22 14:15 | PN ---
Progress Note, Physician Chief Complaint: Cough Feeling better - Current Medication List Current Medications: Active Medications Acetaminophen (Tylenol -) 650 mg PO Q6H PRN PRN Reason: FEVER Albuterol Sulfate (Ventolin 0.083% Nebulizer Soln -) 1 amp NEB Q4H PRN PRN Reason: SHORT OF BREATH/WHEEZING Albuterol/Ipratropium (Duoneb -) 1 amp NEB RQID [facility] Last Admin: 04/22/18 11:52 Dose: Not Given Aspirin (Asa -) 81 mg PO DAILY [facility] Last Admin: 04/22/18 10:48 Dose: 81 mg Atorvastatin Calcium (Lipitor -) 40 mg PO HS [facility] Last Admin: 04/21/18 22:26 Dose: 40 mg Budesonide/Formoterol Fumarate (Symbicort 80/4.5mcg -) 1 puff IH BID [facility] Last Admin: 04/21/18 22:26 Dose: 1 puff Diltiazem HCl (Cardizem -) 30 mg PO Q6HPO [facility] Last Admin: 04/22/18 12:19 Dose: 30 mg Enoxaparin Sodium (Lovenox -) 30 mg SQ DAILY [facility] Last Admin: 04/22/18 11:52 Dose: 30 mg Hydralazine HCl (Apresoline -) 50 mg PO TID [facility] Last Admin: 04/22/18 05:52 Dose: 50 mg Ceftriaxone Sodium 2 gm/ (Dextrose) 100 mls @ 100 mls/hr IVPB DAILY [facility]; Protocol Last Admin: 04/22/18 11:52 Dose: 100 mls/hr Methylprednisolone Sodium Succinate (Solu-Medrol -) 40 mg IVPUSH Q6H-IV [facility] Last Admin: 04/22/18 09:48 Dose: 40 mg Mirtazapine (Remeron -) 15 mg PO HS [facility] Last Admin: 04/21/18 22:26 Dose: 15 mg Pantoprazole Sodium (Protonix -) 40 mg PO DAILY [facility] Last Admin: 04/22/18 10:49 Dose: 40 mg Senna (Senna -) 1 tab PO HS [facility] Last Admin: 04/21/18 22:26 Dose: 1 tab - Objective Vital Signs: Vital Signs Temperature 98.2 F 04/22/18 05:38 Pulse Rate 79 04/22/18 05:38 Respiratory Rate 22 H 04/22/18 05:38 Blood Pressure 163/71 04/22/18 05:38 O2 Sat by Pulse Oximetry (%) 96 04/22/18 01:38 Constitutional: Yes: Well Nourished, Mild Distress Eyes: Yes: Conjunctiva Clear, EOM Intact HENT: Yes: Atraumatic, Normocephalic Neck: Yes: Supple Cardiovascular: Yes: Regular Rate and Rhythm, S1, S2. No: JVD Respiratory: Yes: Regular, Tachypnea, Wheezes. No: Rales Gastrointestinal: Yes: Normal Bowel Sounds, Soft Edema: No Labs: CBC, BMP 04/22/18 06:30 04/22/18 06:30 INR, PTT INR 1.03 (0.83-1.09) 04/21/18 09:18 Problem List - Problems (1) Bronchitis Code(s): J40 - BRONCHITIS, NOT SPECIFIED ACUTE OR CHRONIC (2) CKD (chronic kidney disease) Code(s): N18.9 - CHRONIC KIDNEY DISEASE, UNSPECIFIED Qualifiers: Chronic kidney disease stage: stage 3 (moderate) Qualified Code(s): N18.3 - Chronic kidney disease, stage 3 (moderate) (3) Chest pain Code(s): R07.9 - CHEST PAIN, UNSPECIFIED Assessment/Plan 88 year old man with history of PCKD, CKD stage 4, AAA s/p repair, CAD and CABG in 2006, HTN, HLD, GERD, COPD, anemia, allergies, depression from [facility] admitted with progressive productive green cough, shortness of breath and malaise x 2 days, today with left sided chest pain that has since resolved. +subjective fevers and chills. No orthopnea, pnd or edema. Baseline wheelchair bound. ECG LVH with repolarization changes. started on abx for pneumonia. Continue antibiotic therapy. Will see as needed.
[2018-04-22 14:38] LABS: ANISOCYTOSIS 1+; MACROCYTOSIS 0; OVALOCYTE 1+; PLATELET ESTIMATE NORMAL
[2018-04-22] MEDS: SENNOSIDES 8.6MG TABLET (FP) PO SCH (22:31)
[2018-04-22] MEDS: MIRTAZAPINE 15 MG TABLET (FP) PO SCH (22:31)
[2018-04-22] MEDS: ATORVASTATIN CA 40 MG TABLET (FP) PO SCH (22:31)
[2018-04-23] MEDS: methylPREDNISolone NA SUCC 40 MG/1 ML VIAL IVPUSH SCH ×4 (02:47→21:47)
[2018-04-23 03:26] VITALS: BMI 32.8
[2018-04-23] MEDS: hydrALAZINE HCL 50 MG TABLET (FP) PO SCH ×3 (06:14→21:47)
[2018-04-23] MEDS: dilTIAZem HCL 30 MG TABLET (FP) PO SCH ×4 (06:14→23:00)
--- NOTE | 2018-04-23 06:21 | RAPID ---
Physical Examination Vital Signs: Vital Signs Temperature 97.6 F 04/23/18 01:55 Pulse Rate 72 04/23/18 01:55 Respiratory Rate 18 04/23/18 01:55 Blood Pressure 152/82 04/23/18 01:55 O2 Sat by Pulse Oximetry (%) 97 04/22/18 22:00 Findings/Remarks: Rapid Response was called around 6 am. Per nurse patient was not at baseline. He had been combative and active all night with the nurse. Upon sternal rub patient yelled and moved all extremities. He appeared to go back to seep after. Patients oxygen saturation was 96% on 2L NC. Babinski was downward going, patient was able to move upper extremity to localize pain, patient opened eyes to sternal rub, patients pupils were reactive to light. Patient received a nebulizer treatment. EKG was done and only showed PVC. CXR and head CT ordered. ABG, CBC, CMP, and lactic acid ordered. Patients saturation on room air ranged from 92-95% BP 155/85 pulse 74 Labs: CBC, BMP 04/22/18 06:30 04/22/18 06:30
[2018-04-23 06:27] LABS: BASO % 0.1 % (0-2.0); HEMATOCRIT 27.3 % (35.4-49); HEMOGLOBIN 9.5 GM/dL (11.7-16.9); MCH 35.3 pg (25.7-33.7); MCHC 34.8 g/dl (32.0-35.9); MEAN CELL VOLUME 101.5 fl (80-96); MONO % 1.9 % (3.8-10.2); PLATELET COUNT 370 K/MM3 (134-434); RBC 2.69 M/mm3 (4.00-5.60); RDW 15.1 % (11.9-15.9); WHITE BLOOD COUNT 14.5 K/mm3 (4.0-10.0)
[2018-04-23 06:37] LABS: ARTERIAL BLD GAS O2 SATURATION 98.8 % (90-98.9); ARTERIAL BLOOD GAS PCO2 35.4 mmHg (35-45); ARTERIAL BLOOD GAS pH 7.36 (7.35-7.45)
[2018-04-23 06:45] LABS: ALLENS TEST POSITIVE
[2018-04-23 07:00] LABS: ALBUMIN 3.6 g/dl (3.4-5.0); ALK PHOS 108 U/L (45-117); ANION GAP 10 MMOL/L (8-16); BILIRUBIN,TOTAL 0.3 mg/dL (0.2-1); BLOOD UREA NITROGEN 43 mg/dL (7-18); CALCIUM 8.5 mg/dL (8.5-10.1); CHLORIDE 113 mmol/L (98-107); CO2 21 mmol/L (21-32); CREATININE 2.6 mg/dL (0.55-1.3); GLUCOSE,RANDOM 164 mg/dL (74-106); POTASSIUM 3.9 mmol/L (3.5-5.1); SGOT/AST 24 U/L (15-37); SGPT/ALT 18 U/L (13-61); SODIUM 145 mmol/L (136-145)
[2018-04-23] MEDS: ALBUTEROL SO4 2.5/IPRATROPIUM 0.5 INH SOL 3 ML VIAL.NEB. NEB SCH ×4 (07:35→20:23)
[2018-04-23] MEDS ORDERED: PT OWN MED DRAWER 7, Y5N ONE (09:24)
[2018-04-23] MEDS: PANTOPRAZOLE 40 MG TABLET (FP) PO SCH (09:26)
[2018-04-23] MEDS: ASPIRIN 81 MG CHEWABLE TABLETS PO SCH (09:27)
[2018-04-23] MEDS: BUDESONIDE/FORMETEROL FUMARATE 80/4.5 mcg INHALER IH SCH ×2 (09:28→21:47)
[2018-04-23 09:47] LABS: ANISOCYTOSIS 1+; MACROCYTOSIS 1+; PLATELET ESTIMATE NORMAL
[2018-04-23] MEDS ORDERED: PNEUMOC 13-VAL CONJ-DIP CRM/PF 0.5 ML DISP.SYRIN IM ONE (10:00)
[2018-04-23] MEDS ORDERED: DEXTROSE 5%-WATER 100 ML IVPB ONE (11:31)
[2018-04-23] MEDS: ENOXAPARIN NA (PORCINE) 30 MG/0.3 ML DISP.SYRIN SQ SCH (11:34)
[2018-04-23] MEDS: CEFTRIAXONE 2 GM in DEXTROSE 5%-WATER 100 ML IVPB SCH (11:37)
--- NOTE | 2018-04-23 12:07 | EKG ---
Test Reason : Blood Pressure : / mmHG Vent. Rate : 076 BPM Atrial Rate : 076 BPM P-R Int : 198 ms QRS Dur : 110 ms QT Int : 404 ms P-R-T Axes : 049 -02 231 degrees QTc Int : 454 ms SINUS RHYTHM WITH OCCASIONAL PREMATURE VENTRICULAR COMPLEXES AND PREMATURE ATRIAL COMPLEXES INFERIOR INFARCT , AGE UNDETERMINED ABNORMAL ECG Confirmed by MD VJ, NITESH ([id number]) on 04/23/2018 12:06:41 PM Referred By: Confirmed By:NITESH ZABALA MD
--- NOTE | 2018-04-23 12:09 | PN ---
Progress Note (short form) - Note Progress Note: s/p rapid response was unresponsive this AM he was combative last night Now he is awake and alert and making sense Did not receive any sedation last night per RN Vital Signs - 24 hr 04/22/18 04/22/18 04/22/18 14:40 18:26 22:00 Temperature 98.1 F 98.4 F Pulse Rate 85 84 Respiratory 20 21 H 18 Rate Blood Pressure 177/80 H 180/86 H O2 Sat by Pulse 97 Oximetry (%) 04/23/18 04/23/18 04/23/18 01:55 05:30 06:00 Temperature 97.6 F 97.4 F L 97.4 F L Pulse Rate 72 77 72 Respiratory 18 24 H 22 H Rate Blood Pressure 152/82 155/86 155/86 O2 Sat by Pulse Oximetry (%) 04/23/18 04/23/18 08:43 09:00 Temperature 97.8 F Pulse Rate 81 Respiratory 20 Rate Blood Pressure 141/74 O2 Sat by Pulse 96 Oximetry (%) Current Medications Generic Name Dose Route Start Last Admin Trade Name Freq PRN Reason Stop Dose Admin Acetaminophen 650 mg 04/21/18 11:36 Tylenol - PO Q6H PRN FEVER Albuterol Sulfate 1 amp 04/21/18 11:56 04/23/18 05:53 Ventolin 0.083% Nebulizer Soln - NEB 1 amp Q4H PRN Administration SHORT OF BREATH/WHEEZING Albuterol/Ipratropium 1 amp 04/21/18 13:01 04/23/18 11:34 Duoneb - NEB 1 amp RQID [facility] Administration Aspirin 81 mg 04/22/18 10:00 04/23/18 09:27 Asa - PO 81 mg DAILY [facility] Administration Atorvastatin Calcium 40 mg 04/21/18 22:00 04/22/18 22:31 Lipitor - PO 40 mg HS [facility]G Administration Budesonide/Formoterol Fumarate 1 puff 04/21/18 22:00 04/23/18 09:28 Symbicort 80/4.5mcg - IH 1 puff BID [facility] Administration Diltiazem HCl 30 mg 04/22/18 07:45 04/23/18 11:52 Cardizem - PO 30 mg Q6HPO [facility] Administration Enoxaparin Sodium 30 mg 04/22/18 11:45 04/23/18 11:34 Lovenox - SQ 30 mg DAILY [facility] Administration Hydralazine HCl 50 mg 04/21/18 14:00 04/23/18 06:14 Apresoline - PO Not Given TID [facility] Ceftriaxone Sodium 2 gm/ 100 mls @ 100 mls/hr 04/21/18 14:15 04/23/18 11:37 Dextrose IVPB 100 mls/hr DAILY [facility] Administration Protocol Methylprednisolone Sodium Succinate 40 mg 04/21/18 15:19 04/23/18 11:34 Solu-Medrol - IVPUSH 40 mg Q6H-IV [facility] Administration Mirtazapine 15 mg 04/21/18 22:00 04/22/18 22:31 Remeron - PO 15 mg HS [facility] Administration Pantoprazole Sodium 40 mg 04/22/18 10:00 04/23/18 09:26 Protonix - PO 40 mg DAILY [facility] Administration Senna 1 tab 04/21/18 22:00 04/22/18 22:31 Senna - PO Not Given HS [facility] Laboratory Results - last 24 hr 04/22/18 04/22/18 04/23/18 06:30 13:56 05:51 WBC RBC Hgb Hct MCV MCH MCHC RDW Plt Count MPV Absolute Neuts (auto) Neutrophils % Neutrophils % (Manual) 96.0 H Band Neutrophils % 0.0 Lymphocytes % Lymphocytes % (Manual) 3.0 L Monocytes % Monocytes % (Manual) 1 L Eosinophils % Eosinophils % (Manual) 0.0 Basophils % Basophils % (Manual) 0.0 Myelocytes % (Man) 0 Promyelocytes % (Man) 0 Blast Cells % (Manual) 0 Nucleated RBC % Metamyelocytes 0 Hypochromia 0 Platelet Estimate Normal Polychromasia 0 Poikilocytosis 1+ Anisocytosis 1+ Microcytosis 1+ Macrocytosis 0 Ovalocytes 1+ Schistocytes Anticoagulation Therapy Puncture Site ABG pH ABG pCO2 at Pt Temp ABG pO2 at Pt Temp ABG HCO3 ABG O2 Sat (Measured) ABG O2 Content ABG Base Excess Aly Test O2 Delivery Device Oxygen Flow Rate Vent Mode Vent Rate Mechanical Rate Pressure Support Vent Sodium Potassium Chloride Carbon Dioxide Anion Gap BUN Creatinine Creat Clearance w eGFR POC Glucometer [id number] 176 Random Glucose Lactic Acid Calcium Total Bilirubin AST ALT Alkaline Phosphatase Total Protein Albumin 04/23/18 04/23/18 04/23/18 06:00 06:15 06:15 WBC 14.5 H RBC 2.69 L Hgb 9.5 L Hct 27.3 L MCV 101.5 H MCH 35.3 H MCHC 34.8 RDW 15.1 Plt Count 370 MPV 8.0 Absolute Neuts (auto) 13.7 H Neutrophils % 95.0 H Neutrophils % (Manual) 94.8 H Band Neutrophils % 0.0 Lymphocytes % 3.0 L Lymphocytes % (Manual) 3.1 L Monocytes % 1.9 L Monocytes % (Manual) 2 L D Eosinophils % 0.0 Eosinophils % (Manual) 0.0 Basophils % 0.1 Basophils % (Manual) 0.0 Myelocytes % (Man) 0 Promyelocytes % (Man) 0 Blast Cells % (Manual) 0 Nucleated RBC % 0 Metamyelocytes 0 Hypochromia 0 Platelet Estimate Normal Polychromasia 0 Poikilocytosis 1+ Anisocytosis 1+ Microcytosis 0 Macrocytosis 1+ Ovalocytes Schistocytes 1+ Anticoagulation Therapy No Result Required. Puncture Site Right radial ABG pH 7.36 ABG pCO2 at Pt Temp 35.4 ABG pO2 at Pt Temp 126.0 H ABG HCO3 19.4 L ABG O2 Sat (Measured) 98.8 ABG O2 Content 11.4 L ABG Base Excess -5.0 L Aly Test Positive O2 Delivery Device Aerosal tx Oxygen Flow Rate Yes Vent Mode No Result Required. Vent Rate No Result Required. Mechanical Rate No Result Required. Pressure Support Vent No Result Required. Sodium 145 Potassium 3.9 Chloride 113 H Carbon Dioxide 21 Anion Gap 10 BUN 43 H Creatinine 2.6 H Creat Clearance w eGFR 23.52 POC Glucometer Random Glucose 164 H Lactic Acid Calcium 8.5 Total Bilirubin 0.3 AST 24 ALT 18 Alkaline Phosphatase 108 Total Protein 7.0 Albumin 3.6 04/23/18 06:15 WBC RBC Hgb Hct MCV MCH MCHC RDW Plt Count MPV Absolute Neuts (auto) Neutrophils % Neutrophils % (Manual) Band Neutrophils % Lymphocytes % Lymphocytes % (Manual) Monocytes % Monocytes % (Manual) Eosinophils % Eosinophils % (Manual) Basophils % Basophils % (Manual) Myelocytes % (Man) Promyelocytes % (Man) Blast Cells % (Manual) Nucleated RBC % Metamyelocytes Hypochromia Platelet Estimate Polychromasia Poikilocytosis Anisocytosis Microcytosis Macrocytosis Ovalocytes Schistocytes Anticoagulation Therapy Puncture Site ABG pH ABG pCO2 at Pt Temp ABG pO2 at Pt Temp ABG HCO3 ABG O2 Sat (Measured) ABG O2 Content ABG Base Excess Aly Test O2 Delivery Device Oxygen Flow Rate Vent Mode Vent Rate Mechanical Rate Pressure Support Vent Sodium Potassium Chloride Carbon Dioxide Anion Gap BUN Creatinine Creat Clearance w eGFR POC Glucometer Random Glucose Lactic Acid 1.3 Calcium Total Bilirubin AST ALT Alkaline Phosphatase Total Protein Albumin S1 S2 RRR Lungs ronchi+ Abd- soft, NT No edema PLAN s/p AMS-- Ct head negative EKG- NSR Labs noted ?steroid , ?remeron Will dc remeron monitor BGM noted elevated sugars check A1C ABG noted Problem List - Problems (1) CKD (chronic kidney disease) Code(s): N18.9 - CHRONIC KIDNEY DISEASE, UNSPECIFIED Qualifiers: Chronic kidney disease stage: stage 3 (moderate) Qualified Code(s): N18.3 - Chronic kidney disease, stage 3 (moderate) (2) COPD exacerbation Code(s): J44.1 - CHRONIC OBSTRUCTIVE PULMONARY DISEASE W (ACUTE) EXACERBATION (3) Chest pain Code(s): R07.9 - CHEST PAIN, UNSPECIFIED (4) Pneumonia Code(s): J18.9 - PNEUMONIA, UNSPECIFIED ORGANISM (5) Sepsis Code(s): A41.9 - SEPSIS, UNSPECIFIED ORGANISM
--- NOTE | 2018-04-23 13:31 | PN ---
Progress Note, Physician History of Present Illness: PULMONARY ALERT,MILDY DYSPNEIC,+ COUGH - Current Medication List Current Medications: Active Medications Acetaminophen (Tylenol -) 650 mg PO Q6H PRN PRN Reason: FEVER Albuterol Sulfate (Ventolin 0.083% Nebulizer Soln -) 1 amp NEB Q4H PRN PRN Reason: SHORT OF BREATH/WHEEZING Last Admin: 04/23/18 05:53 Dose: 1 amp Albuterol/Ipratropium (Duoneb -) 1 amp NEB RQID [facility] Last Admin: 04/23/18 11:34 Dose: 1 amp Aspirin (Asa -) 81 mg PO DAILY [facility] Last Admin: 04/23/18 09:27 Dose: 81 mg Atorvastatin Calcium (Lipitor -) 40 mg PO HS [facility] Last Admin: 04/22/18 22:31 Dose: 40 mg Budesonide/Formoterol Fumarate (Symbicort 80/4.5mcg -) 1 puff IH BID [facility] Last Admin: 04/23/18 09:28 Dose: 1 puff Diltiazem HCl (Cardizem -) 30 mg PO Q6HPO [facility] Last Admin: 04/23/18 11:52 Dose: 30 mg Enoxaparin Sodium (Lovenox -) 30 mg SQ DAILY [facility] Last Admin: 04/23/18 11:34 Dose: 30 mg Hydralazine HCl (Apresoline -) 50 mg PO TID [facility] Last Admin: 04/23/18 06:14 Dose: Not Given Ceftriaxone Sodium 2 gm/ (Dextrose) 100 mls @ 100 mls/hr IVPB DAILY [facility]; Protocol Last Admin: 04/23/18 11:37 Dose: 100 mls/hr Insulin Aspart (Novolog Vial Sliding Scale -) 1 vial SQ TIDAC [facility]; Protocol Methylprednisolone Sodium Succinate (Solu-Medrol -) 40 mg IVPUSH Q6H-IV [facility] Last Admin: 04/23/18 11:34 Dose: 40 mg Pantoprazole Sodium (Protonix -) 40 mg PO DAILY [facility] Last Admin: 04/23/18 09:26 Dose: 40 mg Senna (Senna -) 1 tab PO HS [facility] Last Admin: 04/22/18 22:31 Dose: Not Given - Objective Vital Signs: Vital Signs Temperature 97.8 F 04/23/18 08:43 Pulse Rate 81 04/23/18 08:43 Respiratory Rate 20 04/23/18 08:43 Blood Pressure 141/74 04/23/18 08:43 O2 Sat by Pulse Oximetry (%) 96 04/23/18 09:00 Constitutional: Yes: Well Nourished, Calm Eyes: Yes: WNL HENT: Yes: WNL Neck: Yes: WNL Cardiovascular: Yes: Regular Rate and Rhythm, S1, S2 Respiratory: Yes: Rhonchi (SCATTERED DAVID RHONCHI) Gastrointestinal: Yes: Normal Bowel Sounds, Soft Extremities: Yes: WNL Edema: No Labs: CBC, BMP 04/23/18 06:15 04/23/18 06:15 INR, PTT INR 1.03 (0.83-1.09) 04/21/18 09:18 Problem List - Problems (1) ASHD (arteriosclerotic heart disease) Code(s): I25.10 - ATHSCL HEART DISEASE OF [place] CORONARY ARTERY W/O ANG PCTRS (2) Bronchitis Code(s): J40 - BRONCHITIS, NOT SPECIFIED ACUTE OR CHRONIC (3) CKD (chronic kidney disease) Code(s): N18.9 - CHRONIC KIDNEY DISEASE, UNSPECIFIED Qualifiers: Chronic kidney disease stage: stage 3 (moderate) Qualified Code(s): N18.3 - Chronic kidney disease, stage 3 (moderate) (4) COPD exacerbation Code(s): J44.1 - CHRONIC OBSTRUCTIVE PULMONARY DISEASE W (ACUTE) EXACERBATION (5) Wheezing Code(s): R06.2 - WHEEZING Assessment/Plan A/P Acute Bronchitis Acute COPD Exacerbation CAD s/p CABG CKD HTN Hyperlipidemia - medrol at current dose - inhaled bronchodilators standing and PRN - antibiotics per ID - O2 to keep SpO2 >90% - DVT prophylaxis DR WATT
--- NOTE | 2018-04-23 16:57 | PN ---
Progress Note (short form) - Note Progress Note: cough improved Vital Signs Period Temp Pulse Resp BP Sys/Cruz Pulse Ox Last 24 Hr 97.4 F-98.4 F 72-84 18-24 137-180/67-86 96-97 cor-rrr lungs clear abd soft,nt ext no edema CBC, BMP 04/23/18 06:15 04/23/18 06:15 Microbiology 04/21/18 09:18 Blood - Peripheral Venous Blood Culture - Preliminary NO GROWTH OBTAINED AFTER 48 HOURS, INCUBATION TO CONTINUE FOR 3 DAYS. 04/21/18 09:18 Blood - Peripheral Venous Blood Culture - Preliminary NO GROWTH OBTAINED AFTER 48 HOURS, INCUBATION TO CONTINUE FOR 3 DAYS. 04/21/18 12:14 Sputum - Expectorated Gram Stain - Final 04/21/18 12:14 Sputum - Expectorated Sputum Culture - Final Proteus Mirabilis Alpha Hemolytic Streptococcus 04/21/18 09:18 Urine - Urine Clean Catch Urine Culture - Final 04/21/18 09:50 Nasopharyngeal Swab Influenza Types A,B Antigen - Final 04/21/18 09:50 Nasopharyngeal Swab - Final chest ct- no infiltrate a/p suspect bronchitis copd exacerbation CKD day #3 ceftriaxone will switch to po ceftin in am to complete 7 days please call back if needed Problem List - Problems (1) COPD exacerbation Code(s): J44.1 - CHRONIC OBSTRUCTIVE PULMONARY DISEASE W (ACUTE) EXACERBATION (2) Bronchitis Code(s): J40 - BRONCHITIS, NOT SPECIFIED ACUTE OR CHRONIC (3) CKD (chronic kidney disease) Code(s): N18.9 - CHRONIC KIDNEY DISEASE, UNSPECIFIED Qualifiers: Chronic kidney disease stage: stage 3 (moderate) Qualified Code(s): N18.3 - Chronic kidney disease, stage 3 (moderate) (4) Chest pain Code(s): R07.9 - CHEST PAIN, UNSPECIFIED
[2018-04-23] MEDS ORDERED: INSULIN (NOVOLOG) ASPART 100 UNITS/ML 10ML VIAL ONE (16:58)
[2018-04-23] MEDS: INSULIN SLIDING SCALE (NOVOLOG) 1 VIAL SQ SCH (17:07)
[2018-04-23] MEDS: SENNOSIDES 8.6MG TABLET (FP) PO SCH (21:47)
[2018-04-23] MEDS: ATORVASTATIN CA 40 MG TABLET (FP) PO SCH (21:47)
[2018-04-24] MEDS: methylPREDNISolone NA SUCC 40 MG/1 ML VIAL IVPUSH SCH ×3 (03:08→14:48)
[2018-04-24] MEDS: hydrALAZINE HCL 50 MG TABLET (FP) PO SCH ×2 (06:19→14:48)
[2018-04-24] MEDS: dilTIAZem HCL 30 MG TABLET (FP) PO SCH ×2 (06:20→13:05)
[2018-04-24] MEDS: INSULIN SLIDING SCALE (NOVOLOG) 1 VIAL SQ SCH ×3 (06:20→15:59)
[2018-04-24] MEDS ORDERED: PT OWN MED DRAWER 7, Y5N ONE ×3 (06:50→10:07)
[2018-04-24 07:41] LABS: BASO % 0.1 % (0-2.0); HEMATOCRIT 27.1 % (35.4-49); HEMOGLOBIN 8.8 GM/dL (11.7-16.9); LYMPH % 1.9 % (8-40); MCH 33.1 pg (25.7-33.7); MCHC 32.4 g/dl (32.0-35.9); MEAN CELL VOLUME 102.2 fl (80-96); MONO % 2.1 % (3.8-10.2); NEUT % 95.9 % (42.8-82.8); PLATELET COUNT 332 K/MM3 (134-434); RBC 2.65 M/mm3 (4.00-5.60); WHITE BLOOD COUNT 12.5 K/mm3 (4.0-10.0)
[2018-04-24] MEDS: ALBUTEROL SO4 2.5/IPRATROPIUM 0.5 INH SOL 3 ML VIAL.NEB. NEB SCH ×3 (07:56→16:37)
[2018-04-24 08:34] LABS: ALBUMIN 3.4 g/dl (3.4-5.0); ALK PHOS 110 U/L (45-117); ANION GAP 12 MMOL/L (8-16); BILIRUBIN,TOTAL 0.2 mg/dL (0.2-1); BLOOD UREA NITROGEN 48 mg/dL (7-18); CALCIUM 8.2 mg/dL (8.5-10.1); CHLORIDE 111 mmol/L (98-107); CO2 20 mmol/L (21-32); CREATININE 2.9 mg/dL (0.55-1.3); GLUCOSE,RANDOM 223 mg/dL (74-106); POTASSIUM 3.9 mmol/L (3.5-5.1); SGOT/AST 23 U/L (15-37); SGPT/ALT 23 U/L (13-61); SODIUM 143 mmol/L (136-145)
[2018-04-24] MEDS: BUDESONIDE/FORMETEROL FUMARATE 80/4.5 mcg INHALER IH SCH (09:25)
[2018-04-24] MEDS ORDERED: CEFUROXIME AXETIL 500 MG TABLET PO SCH (10:00)
[2018-04-24] MEDS: PANTOPRAZOLE 40 MG TABLET (FP) PO SCH (10:20)
[2018-04-24] MEDS: ASPIRIN 81 MG CHEWABLE TABLETS PO SCH (10:20)
[2018-04-24] MEDS: ENOXAPARIN NA (PORCINE) 30 MG/0.3 ML DISP.SYRIN SQ SCH (11:01)
[2018-04-24 11:03] LABS: ANISOCYTOSIS 2+; MACROCYTOSIS 1+; OVALOCYTE 1+; PLATELET ESTIMATE NORMAL
[2018-04-24] MEDS ORDERED: INSULIN (NOVOLOG) ASPART 100 UNITS/ML 10ML VIAL ONE (11:53)
--- NOTE | 2018-04-24 12:09 | DS ---
Physical Examination Vital Signs: Vital Signs Temperature 97.6 F 04/24/18 10:00 Pulse Rate 72 04/24/18 10:00 Respiratory Rate 18 04/24/18 10:00 Blood Pressure 135/64 04/24/18 10:00 O2 Sat by Pulse Oximetry (%) 96 04/24/18 09:00 Constitutional: Yes: No Distress, Calm Cardiovascular: Yes: Regular Rate and Rhythm Respiratory: Yes: Diminished, Rhonchi Gastrointestinal: Yes: Normal Bowel Sounds, Soft. No: Tenderness Edema: No Labs: CBC, BMP 04/24/18 05:50 04/24/18 05:50 Discharge Summary Reason For Visit: ACUTE COPD/PNEUMONIA, toxic encephalopathy Current Active Problems ASHD (arteriosclerotic heart disease) (Acute) Bronchitis (Acute) CKD (chronic kidney disease) (Acute) COPD exacerbation (Acute) Chest pain (Acute) Pneumonia (Acute) Sepsis (Acute) Wheezing (Acute) Hospital Course: Admitted for toxic encephalopathy Acute bronchitis, pneumonia, COPD seen by ID and Pulmonary Pt was on Solumedrol, iv antibiotics improved Rapid response called for unresponsiveness- CT head negative, pt better at baseline will need CT angiogram for aneurysmal dilation- follow up as oupt stable for dc to NH Condition: Improved - Instructions Referrals: Blossom Schwarz MD [Primary Care Provider] - Disposition: HALF-WAY FACILITY - Home Medications Comprehensive Discharge Medication List: Ambulatory Orders Acetaminophen [Pain Relief] 1,000 mg PO Q4H PRN 04/21/18 Aspirin 81 mg PO DAILY 04/21/18 Atorvastatin Ca [Lipitor] 40 mg PO HS 04/21/18 Budesonide/Formeterol Fumarate [SYMBICORT 80/4.5mcg -] 2 inh PO BID 04/21/18 Cholecalciferol (Vitamin D3) [Vitamin D3] 1,000 unit PO DAILY 04/21/18 Diltiazem [Cardizem -] 30 mg PO Q8H 04/21/18 Famotidine 20 mg PO DAILY 04/21/18 Ferrous Sulfate 325 mg PO DAILY 04/21/18 Hydralazine HCl 50 mg PO TID 04/21/18 Ipratropium/Albuterol Sulfate [Iprat-Albut 0.5-3(2.5) mg/3 ml] 1 neb IH Q6H 10/03 Mirtazapine 15 mg PO HS 04/21/18 Propylene Glycol/Peg 400/Pf [Systane 0.3-0.4% Eye Drops] 1 each OP Q4H PRN 04/21 Sennosides [Senna Laxative] 1 tab PO HS 04/21/18 Chlorhexidine Gluconate [Peridex -] 15 ml MM BID 04/23/18
[2018-04-24 14:27] VITALS: BP 145/73; PULSE 82; TEMP 98.7
== END 2018-04-24 18:31 | DRG 190 ==
LOC: JER 08:54 → JERBED 10:14 → J4S 04-22 20:15
PROVIDERS: ADMIT Internal Medicine; ATTEND Internal Medicine
DX: J44.1 Chronic obstructive pulmonary disease with (acute) exacerbation (principal); G92 Toxic encephalopathy; Q61.3 Polycystic kidney, unspecified; N18.4 Chronic kidney disease, stage 4 (severe); I25.10 Atherosclerotic heart disease of native coronary artery without angina pectoris; J44.0 Chronic obstructive pulmonary disease with (acute) lower respiratory infection; E78.5 Hyperlipidemia, unspecified; D64.9 Anemia, unspecified; F32.9 Major depressive disorder, single episode, unspecified; K21.9 Gastro-esophageal reflux disease without esophagitis; R00.0 Tachycardia, unspecified; I13.10 Hypertensive heart and chronic kidney disease without heart failure, with stage 1 through stage 4 chronic kidney disease, or unspecified chronic kidney disease; R07.89 Other chest pain; R06.2 Wheezing; J20.9 Acute bronchitis, unspecified; Z95.1 Presence of aortocoronary bypass graft
CPT/HCPCS: 36415; 36600; 70450-TC; 71045-TC-FY; 71250-TC; 80053; 81003; 81015; 82803; 82962; 83036; 83605; 84484; 85025; 85610; 85730; 87040; 87070; 87086; 87186; 87205; 87804; 90670; 93005; 93010; 94640; 97116-GP; 97161-GP; 99285-25; J0131

== ENCOUNTER 2018-08-20 17:28 | Inpatient (IN) | payer OTHER ==
[2018-08-20 18:16] VITALS: BMI 30.2
--- NOTE | 2018-08-20 18:27 | PDOC ---
History of Present Illness - General Chief Complaint: Edema Stated Complaint: EDEMA Time Seen by Provider: 08/20/18 18:27 - History of Present Illness Initial Comments: 88 YOM with h/o polycystic kidney disease, CKD stage 4, AAA s/p repair, CAD and CABG in 2007, HTN, HLD, GERD, COPD, anemia, allergies, depression from [facility] with worsening SOB and leg swelling for the pat week. Patient had bilateral dopplers performed 3 days prior (08/17/2018) to presentation which ruled out clots. He states that he is on blood thinners but there are no records for any blood thinners. Denies any fevers, chills, nausea vomiting, diarrhea, or other symptoms. 08/20/18 18:56 Past History - Past Medical History Allergies/Adverse Reactions: Allergies Allergy/AdvReac Type Severity Reaction Status Date / Time No Known Allergies Allergy Verified 04/21/18 09:18 Home Medications: Ambulatory Orders Acetaminophen [Pain Relief] 1,000 mg PO Q4H PRN 04/21/18 Aspirin 81 mg PO DAILY 04/21/18 Atorvastatin Ca [Lipitor] 40 mg PO HS 04/21/18 Budesonide/Formeterol Fumarate [SYMBICORT 80/4.5mcg -] 2 inh PO BID 04/21/18 Cholecalciferol (Vitamin D3) [Vitamin D3] 1,000 unit PO DAILY 04/21/18 Diltiazem [Cardizem -] 30 mg PO Q8H 04/21/18 Famotidine 20 mg PO DAILY 04/21/18 Ferrous Sulfate 325 mg PO DAILY 04/21/18 Hydralazine HCl 50 mg PO TID 04/21/18 Ipratropium/Albuterol Sulfate [Iprat-Albut 0.5-3(2.5) mg/3 ml] 1 neb IH Q6H 10/03 Mirtazapine 15 mg PO HS 04/21/18 Propylene Glycol/Peg 400/Pf [Systane 0.3-0.4% Eye Drop] 1 each OP Q4H PRN Sennosides [Senna Laxative] 1 tab PO HS 04/21/18 Chlorhexidine Gluconate [Peridex -] 15 ml MM BID 04/23/18 Cefuroxime Axetil [Ceftin -] 500 mg PO BID #10 tablet 11/07/18 predniSONE [Deltasone -] See Taper PO DAILY #30 tablet 04/24/18 Anemia: Yes Cardiac Disorders: Yes (CABG, AAA) CVA: Yes COPD: Yes HTN: Yes Hypercholesterolemia: Yes Psychiatric Problems: Yes (MDD) - Surgical History Cardiac Surgery: Yes (cabg) - Suicide/Smoking/Psychosocial Hx Smoking History: Never smoked Have you smoked in the past 12 months: No Information on smoking cessation initiated: No Hx Alcohol Use: No Drug/Substance Use Hx: No Hx Substance Use Treatment: No Review of Systems - Review of Systems Constitutional: No: Chills HEENTM: No: Blurred Vision Respiratory: Yes: Shortness of Breath, SOB with Exertion, SOB at Rest. No: Cough, Orthopnea Cardiac (ROS): Yes: Edema. No: Chest Pain, Irregular Heart Rate ABD/GI: No: Diarrhea, Nausea, Vomiting : No: Burning, Dysuria, Discharge Integumentary: Yes: Erythema, Lesions. No: Flushing Neurological: No: Headache, Numbness, Paresthesia Psychiatric: No: Anxiety, Depression Hematologic/Lymphatic: Yes: Blood Clots, Easy Bruising. No: Anemia *Physical Exam - Vital Signs Last Vital Signs Temp Pulse Resp BP Pulse Ox 98.7 F 55 L 16 164/68 100 08/20/18 17:30 08/20/18 17:30 08/20/18 17:30 08/20/18 17:30 08/20/18 17:30 - Physical Exam General Appearance: Yes: Nourished, Appropriately Dressed. No: Apparent Distress HEENT: positive: EOMI, MAME, Normal ENT Inspection, Normal Voice Neck: positive: Trachea midline, Normal Thyroid, Supple. negative: Tender, Rigid Respiratory/Chest: positive: Crackles. negative: Chest Tender, Lungs Clear ( bilateral lower lung field crackles), Normal Breath Sounds, Respiratory Distress , Accessory Muscle Use, Decreased Breath Sounds Cardiovascular: positive: Irregularly Irregular. negative: Regular Rhythm, Regular Rate Gastrointestinal/Abdominal: positive: Normal Bowel Sounds, Flat, Soft. negative : Tender Lymphatic: negative: Adenopathy, Tenderness Musculoskeletal: negative: Normal Inspection Extremity: positive: Normal Capillary Refill (normal UE cap refill but slightly delayed in LEs), Delayed Capillary Refill, Pedal Edema (bilateral lower extremity edema left > right 3+ pitting edema to the mid thigh), Swelling, Erythema (erythema over left lower extemity in small circular distribution). negative: Normal Inspection, Normal Range of Motion (weak lower extremities), Tender Integumentary: positive: Normal Color, Dry, Warm Neurologic: positive: Fully Oriented, Alert, Normal Mood/Affect, Normal Response. negative: Motor Strength 5/5 Moderate Sedation - Procedure Monitoring Vital Signs: Procedure Monitoring Vital Signs Temperature 98.7 F 08/20/18 17:30 Pulse Rate 55 L 08/20/18 17:30 Respiratory Rate 16 08/20/18 17:30 Blood Pressure 164/68 08/20/18 17:30 O2 Sat by Pulse Oximetry (%) 100 08/20/18 17:30 ED Treatment Course - LABORATORY CBC & Chemistry Diagram: 08/20/18 19:03 08/20/18 18:53 Medical Decision Making - Medical Decision Making 88 year old male with worsening lower extremity swelling and shortness of breath. The clinical picture was slightly confusing because his EKG demonstrated atrial fibrillation which he states he knew about and claimed to be on blood thinners. His medical record and detailed questioning of nurses does not yield any previous diagnosis of afib or use of AC. Patient is not acutely desaturating on RA or in any acute distress so lasix weere held because of elevated creatinine to 2.4. 08/20/18 20:05 *DC/Admit/Observation/Transfer - Referrals Referrals: Blossom Schwarz MD [Primary Care Provider] - - Patient Instructions - Post Discharge Activity
--- NOTE | 2018-08-20 19:21 | PDOC ---
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 The patient reports that he has noticed some increased swelling to his lower extremities. He reports some associated shortness of breath with his edema. It is notes that the patient is not on any diuretics. He denies any other symptoms or complaints. - Physicial Exam PE: 08/20/18 20:42 Agree with resident exam. <Cassandra Lutz - Last Filed: 08/20/18 20:42> - Resident Resident Name: Pranay Albrecht - ED Attending Attestation I have performed the following: I have examined & evaluated the patient, The case was reviewed & discussed with the resident, I agree w/resident's findings & plan - Medical Decision Making 08/20/18 20:57 88-year-old male with increasing swelling to his lower extremities Labs exam and history most consistent with congestive heart failure EKG consistent with possible new onset atrial fibrillation Patient will be admitted to medical service for further evaluation <Juana Ortiz - Last Filed: 08/20/18 20:58> Attestations - Attestations 08/20/18 19:42 Documentation prepared by Cassandra Lutz, acting as medical assisting instructor for Juana Ortiz DO. <Cassandra Lutz - Last Filed: 08/20/18 20:42>
[2018-08-20 19:29] LABS: BASO % 0.3 % (0-2.0); EOS % 0.4 % (0-4.5); HEMATOCRIT 30.1 % (35.4-49); HEMOGLOBIN 10.1 GM/dL (11.7-16.9); LYMPH % 7.3 % (8-40); MCH 32.9 pg (25.7-33.7); MCHC 33.5 g/dl (32.0-35.9); MEAN CELL VOLUME 98.3 fl (80-96); MEAN PLT VOLUME 8.5 fl (7.5-11.1); MONO % 6.2 % (3.8-10.2); NEUT % 85.8 % (42.8-82.8); PLATELET COUNT 175 K/MM3 (134-434); RBC 3.06 M/mm3 (4.00-5.60); RDW 15.8 % (11.9-15.9); WHITE BLOOD COUNT 9.4 K/mm3 (4.0-10.0)
[2018-08-20 19:57] LABS: ALBUMIN 2.9 g/dl (3.4-5.0); ALK PHOS 82 U/L (45-117); ANION GAP 11 MMOL/L (8-16); BILIRUBIN,TOTAL 0.3 mg/dL (0.2-1); BLOOD UREA NITROGEN 61 mg/dL (7-18); CALCIUM 8.1 mg/dL (8.5-10.1); CHLORIDE 114 mmol/L (98-107); CO2 20 mmol/L (21-32); CREATININE 2.4 mg/dL (0.55-1.3); GLUCOSE,RANDOM 137 mg/dL (74-106); POTASSIUM 4.1 mmol/L (3.5-5.1); SGOT/AST 12 U/L (15-37); SGPT/ALT 21 U/L (13-61); SODIUM 144 mmol/L (136-145); TOT PROT 5.2 g/dl (6.4-8.2)
[2018-08-20] MEDS ORDERED: FUROSEMIDE 40 MG/4 ML INJECTABLE VIAL IVPUSH ONE (20:43)
[2018-08-20] MEDS ORDERED: FUROSEMIDE 40 MG/4 ML INJECTABLE VIAL ONE (20:47)
[2018-08-20 20:51] LABS: N-TERMINAL BNP 8449.9 pg/ml (5-450)
[2018-08-20 21:49] LABS: PLATELET ESTIMATE ADEQUATE
[2018-08-20] MEDS ORDERED: HEPARIN NA (PORCINE) 5,000 UNITS/ML 1ML VIAL IVPUSH PRN (22:54)
[2018-08-20] MEDS ORDERED: ARTIFICIAL TEARS (POLYVINYL ALCOHOL) OPTH DROPS OU PRN (22:55)
[2018-08-20] MEDS ORDERED: HEPARIN NA (PORCINE) 5,000 UNITS/ML 1ML VIAL SQ SCH (23:00)
--- NOTE | 2018-08-20 23:06 | HP ---
Admitting History and Physical - Primary Care Physician PCP: Blossom Schwarz - Admission Chief Complaint: LE edema, dyspnea History of Present Illness: 88 YOM with h/o polycystic kidney disease, CKD stage 4, AAA s/p repair, CAD and CABG in 2006, HTN, HLD, GERD, COPD, anemia, allergies, depression from [facility] with progressive lower extremity edema (R > L) over the last several days. Mr. Farah reports his RLE initially began to swell followed by redness and tenderness. He was evaluated by primary care provider at [facility] three days prior with b/l doppler studies which were negative for DVT. Patient referred from [facility] to [facility] for evaluation due to associated dyspnea , he denies CP/palpitations/Dizziness. Upon arrival to ED, pt noted to be in Afib on EKG (90bpm). CXR without evidence of acute lung disease. Vitals were BP 145/73, HR 82bpm T 98.7, RR 18 O 2 sat 100% (RA). Initial labs: BNP 8449, TRop #1 0.18, Creat 2.4. Pt given lasix 40mg IVP. Plan is to admit pt for serial cardiac enzymes, and management of Afib, and possible NSTEMI. Of note: Mr. Farah was admitted for toxic encephalopathy Apr 2018 in the setting of Acute bronchitis, pneumonia, and COPD exacerbation. seen by ID and Pulmonary and placed on Solumedrol & iv antibiotics with improvement in clinical status, pt was stabilized and discharged back to [place], with instruction to follow up with health care provider for CT angiogram d/t aneurysmal dilation. History Source: Patient Limitations to Obtaining History: No Limitations - Past Medical History Cardiovascular: Yes: CAD, HTN, Hyperlipdemia. 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 REmote tobacco use Home Medications - Allergies Allergies/Adverse Reactions: Allergies Allergy/AdvReac Type Severity Reaction Status Date / Time No Known Allergies Allergy Verified 08/20/18 20:23 - Home Medications Home Medications: Ambulatory Orders Acetaminophen [Pain Relief] 1,000 mg PO Q4H PRN 04/21/18 Aspirin 81 mg PO DAILY 04/21/18 Budesonide/Formeterol Fumarate [SYMBICORT 80/4.5mcg -] 2 inh PO BID 04/21/18 Cholecalciferol (Vitamin D3) [Vitamin D3] 1,000 unit PO DAILY 04/21/18 Diltiazem [Cardizem -] 30 mg PO Q8H 04/21/18 Famotidine 20 mg PO DAILY 04/21/18 Ferrous Sulfate 325 mg PO DAILY 04/21/18 Hydralazine HCl 50 mg PO TID 04/21/18 Ipratropium/Albuterol Sulfate [Iprat-Albut 0.5-3(2.5) mg/3 ml] 1 neb IH Q6H 10/03 Mirtazapine 30 mg PO HS 04/21/18 Propylene Glycol/Peg 400/Pf [Systane 0.3-0.4% Eye Drop] 1 each OP Q4H PRN Sennosides [Senna Laxative] 1 tab PO HS 04/21/18 Chlorhexidine Gluconate [Peridex -] 15 ml MM BID 04/23/18 Docusate Sodium [Colace] 300 mg PO HS 08/20/18 Famotidine [Pepcid] 20 mg PO DAILY 08/20/18 Insulin Regular, Human [Humulin R U-500 Kwikpen] 6 unit SQ TID 08/20/18 Montelukast Sodium [Singulair] 10 mg PO HS 08/20/18 Multivitamin,Ther and Minerals [Vitamin and Minerals] 1 each PO DAILY 08/20/18 Protein Hydrolysate,Milk [Liquid Protein Fortifier] 30 ml PO BID 08/20/18 predniSONE [Deltasone -] See Taper PO BID 08/20/18 Family Disease History - Family Disease History Family Disease History: Other: Father ( (60s) lung cancer), Mother ( (50s) ? cancer), Brother ( alive (88) prostate disease), Sister (alive (90) CVA) Other Family History: Brother alive (89) OA, DMII. Sister (60s) unknown cause. Sister (50s) [place]. Brother (50s) ETOH abuse. Brother (50s) DMII Review of Systems - Review of Systems Constitutional: reports: Lethargy, Weakness Eyes: reports: No Symptoms HENT: reports: Hearing Loss Neck: reports: No Symptoms Cardiovascular: reports: Edema, Shortness of Breath Respiratory: reports: SOB Gastrointestinal: reports: No Symptoms Genitourinary: reports: No Symptoms Breasts: reports: No Symptoms Reported Musculoskeletal: reports: Decreased ROM, Joint Pain, Muscle Weakness Integumentary: reports: No Symptoms, Change in Color, Lesions (RLE), Rash Neurological: reports: Unsteady Gait, Weakness Endocrine: reports: Unexplained Weight Gain Hematology/Lymphatic: reports: No Symptoms Psychiatric: reports: Depression Physical Examination Vital Signs: Vital Signs Temperature 98.7 F 08/20/18 17:30 Pulse Rate 90 08/20/18 21:00 Respiratory Rate 28 H 08/20/18 21:00 Blood Pressure 135/78 08/20/18 21:00 O2 Sat by Pulse Oximetry (%) 98 08/20/18 21:00 Constitutional: Yes: No Distress, Calm Eyes: Yes: Conjunctiva Clear, PERRL HENT: Yes: Atraumatic, Normocephalic, Other (poor dentition, white lesions to hard palate) Neck: Yes: Supple Cardiovascular: Yes: Pulse Irregular Respiratory: Yes: Regular, CTA Bilaterally, Diminished (at the bases) Gastrointestinal: Yes: Soft, Abdomen, Obese ...Rectal Exam: Yes: Deferred Musculoskeletal: Yes: Joint Stiffness, Muscle Weakness Extremities: Yes: Erythema (RLE) Edema: Yes Edema: LLE: 2+, RLE: 4+ Peripheral Pulses WNL: Yes Peripheral Pulses: Left Radial: 2+, Right Radial: 2+, Left Doralis Pedis: 2+, Right Dorsalis Pedis: 2+ Integumentary: Yes: Erythema (RLE), Rash (RLE), Venous Stasis Changes (RLE) Neurological: Yes: Alert, Oriented, Weakness ...Motor Strength: LLE (decreased 4/5), RLE (decreased 4/5) Psychiatric: Yes: Alert, Oriented Labs: CBC, BMP 08/20/18 19:03 08/20/18 18:53 Imaging - Results Chest X-ray: Report Reviewed (CXR 08/20/2018: The cardiac silhouette remains moderately enlarged. There is mild bilateral perihilar increased lung markings. Mild elevation of the right hemidiaphragm. Note is made of calcification of the descending thoracic aorta wall. Mild levoscoliosis of the thoracic spine. Partially included inferior vena cava filter at L1 Level. REported by Lisa Fitch MD) Problem List - Problems (1) Atrial fibrillation Assessment/Plan: continue cardizem 30mg TID Send PT/PTT, then start heparin drip for Afib admit to tele floor ASA 81mg daily Code(s): I48.91 - UNSPECIFIED ATRIAL FIBRILLATION (2) COPD (chronic obstructive pulmonary disease) Assessment/Plan: singulair 10mg daily prednisone 10mg BID continue symbicort nebs PRN PRN ABG if decompensates Code(s): J44.9 - CHRONIC OBSTRUCTIVE PULMONARY DISEASE, UNSPECIFIED (3) Elevated troponin Assessment/Plan: serial cardiac enzymes echo in AM Start heparin drip Daily EKG maintain continuous telemetry cardiology consult Code(s): R74.8 - ABNORMAL LEVELS OF OTHER SERUM ENZYMES (4) DM type 2 (diabetes mellitus, type 2) Assessment/Plan: fingerstick AC/HS insulin SS Code(s): E11.9 - TYPE 2 DIABETES MELLITUS WITHOUT COMPLICATIONS (5) HTN (hypertension) Assessment/Plan: hydralazine 50mg TID cardiac diet Code(s): I10 - ESSENTIAL (PRIMARY) HYPERTENSION (6) Prophylactic measure Assessment/Plan: fall precautions as pt is wheelchair dependent bleeding precautions with heparin drip Bowel regimen with senna and colace Code(s): Z29.9 - ENCOUNTER FOR PROPHYLACTIC MEASURES, UNSPECIFIED Assessment/Plan Depression: continue remeron GI PPX: Zantac 150mg BID Anemia: Ferrous sulfate 325mg DISPO: Full code Visit type - Emergency Visit Emergency Visit: Yes ED Registration Date: 08/20/18 Care time: The patient presented to the Emergency Department on the above date and was hospitalized for further evaluation of their emergent condition. - New Patient This patient is new to me today: Yes Date on this admission: 08/20/18 - Critical Care Critical Care patient: No
[2018-08-20] MEDS: ACETAMINOPHEN 325 MG TABLET (FP) PO PRN (23:10)
[2018-08-20] MEDS ORDERED: hydrALAZINE HCL 25 MG TABLET (FP) ONE ×2 (23:18→23:44)
[2018-08-20] MEDS ORDERED: HEPARIN INFUSION - 25,000 UNITS/500 ML INFUS.BAG IVPB ONE (23:19)
[2018-08-20] MEDS ORDERED: RANITIDINE HCL 150 MG TABLET (FP) ONE (23:43)
[2018-08-20] MEDS ORDERED: dilTIAZem HCL 30 MG TABLET (FP) ONE (23:44)
[2018-08-20] MEDS: hydrALAZINE HCL 50 MG TABLET (FP) PO SCH (23:49)
[2018-08-20] MEDS: predniSONE 10 MG TABLET (UD) PO SCH (23:50)
[2018-08-20] MEDS: dilTIAZem HCL 30 MG TABLET (FP) PO SCH (23:50)
[2018-08-20] MEDS: BUDESONIDE/FORMETEROL FUMARATE 80/4.5 mcg INHALER IH SCH (23:50)
[2018-08-20] MEDS: RANITIDINE HCL 150 MG TABLET (FP) PO SCH (23:50)
[2018-08-20] MEDS: HEPARIN SOD,PORK IN 0.45% NACL 25,000 UNITS/500 ML INFUS.BAG IVPB SCH (23:50)
--- NOTE | 2018-08-20 23:54 | CON.CARD ---
Consult Consult Specialty:: Cardiology - History of Present Illness History of Present Illness: 88 YOM with h/o polycystic kidney disease, CKD stage 4, AAA s/p repair, CAD and CABG in 2007, HTN, HLD, GERD, COPD, anemia, allergies, depression from [facility] with worsening SOB and leg swelling for the pat week. Patient had bilateral dopplers performed 3 days prior (08/17/2018) to presentation which ruled out clots. He states that he is on blood thinners but there are no records for any blood thinners. Denies any fevers, chills, nausea vomiting, diarrhea, or other symptoms. 08/20/18 18:56 - History Source History Provided By: Patient, Medical Record - Past Medical History Cardio/Vascular: Yes: CAD, HTN, Hyperlipdemia. 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 History of Recent Travel: No (echo 2 years ago) Home Medications - Allergies Allergies/Adverse Reactions: Allergies Allergy/AdvReac Type Severity Reaction Status Date / Time No Known Allergies Allergy Verified 08/20/18 20:23 - Home Medications Home Medications: Ambulatory Orders Acetaminophen [Pain Relief] 1,000 mg PO Q4H PRN 04/21/18 Aspirin 81 mg PO DAILY 04/21/18 Budesonide/Formeterol Fumarate [SYMBICORT 80/4.5mcg -] 2 inh PO BID 04/21/18 Cholecalciferol (Vitamin D3) [Vitamin D3] 1,000 unit PO DAILY 04/21/18 Diltiazem [Cardizem -] 30 mg PO Q8H 04/21/18 Famotidine 20 mg PO DAILY 04/21/18 Ferrous Sulfate 325 mg PO DAILY 04/21/18 Hydralazine HCl 50 mg PO TID 04/21/18 Ipratropium/Albuterol Sulfate [Iprat-Albut 0.5-3(2.5) mg/3 ml] 1 neb IH Q6H 10/03 Mirtazapine 30 mg PO HS 04/21/18 Propylene Glycol/Peg 400/Pf [Systane 0.3-0.4% Eye Drop] 1 each OP Q4H PRN Sennosides [Senna Laxative] 1 tab PO HS 04/21/18 Chlorhexidine Gluconate [Peridex -] 15 ml MM BID 04/23/18 Docusate Sodium [Colace] 300 mg PO HS 08/20/18 Famotidine [Pepcid] 20 mg PO DAILY 08/20/18 Insulin Regular, Human [Humulin R U-500 Kwikpen] 6 unit SQ TID 08/20/18 Montelukast Sodium [Singulair] 10 mg PO HS 08/20/18 Multivitamin,Ther and Minerals [Vitamin and Minerals] 1 each PO DAILY 08/20/18 Protein Hydrolysate,Milk [Liquid Protein Fortifier] 30 ml PO BID 08/20/18 predniSONE [Deltasone -] See Taper PO BID 08/20/18 Family Disease History - Family Disease History Family Disease History: Other: Father ( (60s) lung cancer), Mother ( (50s) ? cancer), Brother ( alive (88) prostate disease), Sister (alive (90) CVA) Other Family History: Brother alive (89) OA, DMII. Sister (60s) unknown cause. Sister (50s) [place]. Brother (50s) ETOH abuse. Brother (50s) DMII Review of Systems - Review of Systems Constitutional: reports: No Symptoms Eyes: reports: No Symptoms HENT: reports: No Symptoms Neck: reports: No Symptoms Cardiovascular: reports: Edema, Shortness of Breath Gastrointestinal: reports: No Symptoms Genitourinary: reports: No Symptoms Breasts: reports: No Symptoms Reported Musculoskeletal: reports: No Symptoms Integumentary: reports: No Symptoms Neurological: reports: No Symptoms Endocrine: reports: No Symptoms Hematology/Lymphatic: reports: No Symptoms Psychiatric: reports: No Symptoms Vital Signs: Vital Signs Temperature 98.7 F 08/20/18 17:30 Pulse Rate 90 08/20/18 21:00 Respiratory Rate 28 H 08/20/18 21:00 Blood Pressure 135/78 08/20/18 21:00 O2 Sat by Pulse Oximetry (%) 98 08/20/18 21:00 Constitutional: Yes: Well Nourished, No Distress, Calm Eyes: Yes: WNL, Conjunctiva Clear, EOM Intact HENT: Yes: WNL, Atraumatic, Normocephalic Neck: Yes: WNL, Supple, Trachea Midline Respiratory: Yes: WNL, Regular, CTA Bilaterally Gastrointestinal: Yes: WNL, Normal Bowel Sounds Renal/: Yes: WNL Cardiovascular: Yes: WNL, Regular Rate and Rhythm Musculoskeletal: Yes: WNL Extremities: Yes: WNL Edema: Yes Integumentary: Yes: WNL Neurological: Yes: WNL, Alert, Oriented ...Motor Strength: WNL Psychiatric: Yes: WNL, Alert, Oriented - Other Data Labs, Other Data: CBC, BMP 08/20/18 19:03 08/20/18 18:53 Troponin, BNP 08/20/18 18:53 Troponin I 0.18 H B-Natriuretic Peptide 8449.9 H Troponin, BNP 08/20/18 18:53 Troponin I 0.18 H B-Natriuretic Peptide 8449.9 H Imaging - Results Chest X-ray: Image Reviewed (cardiomegaly) EKG: Image Reviewed (af rep abn) Problem List - Problems (1) Atrial fibrillation Code(s): I48.91 - UNSPECIFIED ATRIAL FIBRILLATION (2) CHF (congestive heart failure) Code(s): I50.9 - HEART FAILURE, UNSPECIFIED Qualifiers: Heart failure type: diastolic (3) COPD (chronic obstructive pulmonary disease) Code(s): J44.9 - CHRONIC OBSTRUCTIVE PULMONARY DISEASE, UNSPECIFIED (4) Cellulitis Code(s): L03.90 - CELLULITIS, UNSPECIFIED (5) DM type 2 (diabetes mellitus, type 2) Code(s): E11.9 - TYPE 2 DIABETES MELLITUS WITHOUT COMPLICATIONS (6) Elevated troponin Code(s): R74.8 - ABNORMAL LEVELS OF OTHER SERUM ENZYMES (7) HTN (hypertension) Code(s): I10 - ESSENTIAL (PRIMARY) HYPERTENSION (8) Prophylactic measure Code(s): Z29.9 - ENCOUNTER FOR PROPHYLACTIC MEASURES, UNSPECIFIED (9) ASHD (arteriosclerotic heart disease) Code(s): I25.10 - ATHSCL HEART DISEASE OF [place] CORONARY ARTERY W/O ANG PCTRS (10) Bronchitis Code(s): J40 - BRONCHITIS, NOT SPECIFIED ACUTE OR CHRONIC (11) CKD (chronic kidney disease) Code(s): N18.9 - CHRONIC KIDNEY DISEASE, UNSPECIFIED Qualifiers: Chronic kidney disease stage: stage 3 (moderate) Qualified Code(s): N18.3 - Chronic kidney disease, stage 3 (moderate) (12) COPD exacerbation Code(s): J44.1 - CHRONIC OBSTRUCTIVE PULMONARY DISEASE W (ACUTE) EXACERBATION (13) Chest pain Code(s): R07.9 - CHEST PAIN, UNSPECIFIED (14) Pneumonia Code(s): J18.9 - PNEUMONIA, UNSPECIFIED ORGANISM (15) Sepsis Code(s): A41.9 - SEPSIS, UNSPECIFIED ORGANISM (16) Wheezing Code(s): R06.2 - WHEEZING Assessment/Plan 88 YOM with h/o polycystic kidney disease, CKD stage 4, AAA s/p repair, CAD and CABG in 2006, HTN, HLD, GERD, COPD, anemia, allergies, depression from [facility] with worsening SOB and leg swelling for the pat week. decompensated chf plan telemetry IV lasix echo it is unclear why patient is not on AC for AF if no contraindications would recommend ELIQUIS 2.5 bid
[2018-08-20] MEDS ORDERED: ALBUTEROL SO4 2.5/IPRATROPIUM 0.5 INH SOL 3 ML VIAL.NEB. NEB ONE (23:55)
[2018-08-21] MEDS: ALBUTEROL SO4 2.5/IPRATROPIUM 0.5 INH SOL 3 ML VIAL.NEB. NEB SCH ×4 (00:15→16:00)
[2018-08-21] MEDS: CHLORHEXIDINE GLUCONATE 0.12% 15ML CUP MM SCH ×3 (00:18→22:50)
[2018-08-21] MEDS ORDERED: dilTIAZem HCL 30 MG TABLET (FP) ONE (06:47)
[2018-08-21] MEDS ORDERED: hydrALAZINE HCL 25 MG TABLET (FP) ONE (06:47)
[2018-08-21] MEDS ORDERED: FUROSEMIDE 40 MG/4 ML INJECTABLE VIAL ONE ×2 (06:47→15:34)
[2018-08-21] MEDS: dilTIAZem HCL 30 MG TABLET (FP) PO SCH ×3 (07:15→22:49)
[2018-08-21] MEDS: hydrALAZINE HCL 50 MG TABLET (FP) PO SCH ×3 (07:15→22:49)
[2018-08-21] MEDS: FUROSEMIDE 40 MG/4 ML INJECTABLE VIAL IVPUSH SCH ×2 (07:18→15:40)
[2018-08-21] MEDS: INSULIN SLIDING SCALE (NOVOLOG) 1 VIAL SQ SCH ×4 (07:20→22:50)
[2018-08-21] MEDS ORDERED: INSULIN (NOVOLOG) ASPART 100 UNITS/ML 10ML VIAL ONE (07:26)
[2018-08-21 09:27] LABS: INR 0.94 (0.83-1.09); PROTHROMBIN TIME (PATIENT) 11.1 SEC (9.7-13.0)
[2018-08-21 09:28] LABS: BASO % 0.4 % (0-2.0); EOS % 0.2 % (0-4.5); HEMATOCRIT 30.9 % (35.4-49); HEMOGLOBIN 10.4 GM/dL (11.7-16.9); LYMPH % 6.6 % (8-40); MCH 33.2 pg (25.7-33.7); MCHC 33.7 g/dl (32.0-35.9); MEAN CELL VOLUME 98.5 fl (80-96); MEAN PLT VOLUME 8.8 fl (7.5-11.1); MONO % 4.6 % (3.8-10.2); NEUT % 88.2 % (42.8-82.8); PLATELET COUNT 175 K/MM3 (134-434); RBC 3.14 M/mm3 (4.00-5.60); RDW 15.9 % (11.9-15.9); WHITE BLOOD COUNT 8.6 K/mm3 (4.0-10.0)
[2018-08-21 09:30] LABS: ACTIVATED PTT 42.5 SECONDS (25.2-36.5)
[2018-08-21 09:58] LABS: ALK PHOS 84 U/L (45-117); ANION GAP 12 MMOL/L (8-16); BILIRUBIN,TOTAL 0.3 mg/dL (0.2-1); BLOOD UREA NITROGEN 64 mg/dL (7-18); CALCIUM 8.1 mg/dL (8.5-10.1); CHLORIDE 114 mmol/L (98-107); CHOLESTEROL 122 mg/dL (50-200); CO2 20 mmol/L (21-32); CREATININE 2.6 mg/dL (0.55-1.3); GLUCOSE,RANDOM 215 mg/dL (74-106); HDL CHOLESTEROL 53 mg/dL (40-60); MAGNESIUM 1.9 mg/dL (1.8-2.4); N-TERMINAL BNP 8692.9 pg/ml (5-450); PHOSPHOROUS 3.8 mg/dL (2.5-4.9); POTASSIUM 4.2 mmol/L (3.5-5.1); SGOT/AST 13 U/L (15-37); SGPT/ALT 22 U/L (13-61); SODIUM 145 mmol/L (136-145); TOT PROT 5.4 g/dl (6.4-8.2); TRIGLYCERIDES 100 mg/dL (0-150)
--- NOTE | 2018-08-21 10:06 | PN ---
Progress Note, Physician Chief Complaint: Events noted denies chest pain States he came here for right leg pain and redness He had this leg pain for a few days now Denies SOB , but his leg edema has been getting worse for a couple of days Now on heparin gtt for elevated troponins received IV Lasix No antibiotics given - Current Medication List Current Medications: Active Medications Acetaminophen (Tylenol -) 650 mg PO Q6H PRN PRN Reason: FEVER Last Admin: 08/20/18 23:10 Dose: 650 mg Albuterol/Ipratropium (Duoneb -) 1 amp NEB RQID [facility] Last Admin: 08/21/18 08:29 Dose: Not Given Artificial Tears (Artificial Tears) 1 drop OU Q4H PRN PRN Reason: DRY EYES Aspirin (Asa -) 81 mg PO DAILY [facility] Budesonide/Formoterol Fumarate (Symbicort 80/4.5mcg -) 2 puff IH BID [facility] Last Admin: 08/20/18 23:50 Dose: 2 puff Chlorhexidine Gluconate (Peridex -) 15 ml MM BID [facility] Last Admin: 08/21/18 00:18 Dose: Not Given Diltiazem HCl (Cardizem -) 30 mg PO TID [facility] Last Admin: 08/21/18 07:15 Dose: 30 mg Docusate Sodium (Colace -) 100 mg PO BID [facility] Ferrous Sulfate (Feosol -) 325 mg PO DAILY [facility] Furosemide (Lasix Injection -) 40 mg IVPUSH BID@0600,1400 [facility] Last Admin: 08/21/18 07:18 Dose: 40 mg Heparin Sodium (Porcine) (Heparin -) 1,000 unit IVPUSH PRN PRN PRN Reason: Heparin Hydralazine HCl (Apresoline -) 50 mg PO TID [facility] Last Admin: 08/21/18 07:15 Dose: 50 mg HEPARIN SOD,PORK IN 0.45% NACL (Heparin-1/2ns 25,000 Units/500) 25,000 units in 500 mls @ 20 mls/hr IVPB TITR [facility]; Protocol Last Admin: 08/20/18 23:50 Dose: 1,000 units/hr, 20 mls/hr Insulin Aspart (Novolog Vial Sliding Scale -) 1 vial SQ ACHS [facility]; Protocol Last Admin: 08/21/18 07:20 Dose: 2 unit Mirtazapine (Remeron -) 30 mg PO [facility] Montelukast Sodium (Singulair -) 10 mg PO [facility] Multivitamins/Minerals/Vitamin C (Tab-A-Vit -) 1 tab PO DAILY [facility] Prednisone (Deltasone -) 10 mg PO BID [facility] Last Admin: 08/20/18 23:50 Dose: 10 mg Ranitidine HCl (Zantac -) 150 mg PO BID [facility] Last Admin: 08/20/18 23:50 Dose: 150 mg Senna (Senna -) 2 tab PO [facility] - Objective Vital Signs: Vital Signs Temperature 98.0 F 08/21/18 09:11 Pulse Rate 110 H 08/21/18 09:11 Respiratory Rate 18 08/21/18 09:11 Blood Pressure 133/68 08/21/18 09:11 O2 Sat by Pulse Oximetry (%) 98 08/21/18 09:11 Constitutional: Yes: No Distress Cardiovascular: Yes: Pulse Irregular, JVD Respiratory: Yes: Diminished Gastrointestinal: Yes: Normal Bowel Sounds, Soft, Abdomen, Obese. No: Tenderness Extremities: Yes: Erythema (rt leg), Other (tender rt leg) Edema: Yes Edema: LLE: 2+, RLE: 2+ Neurological: Yes: Alert, Oriented Labs: CBC, BMP 08/21/18 08:50 08/21/18 08:50 INR, PTT INR 0.94 (0.83-1.09) 08/21/18 08:50 - ....Imaging Chest X-ray: Image Reviewed EKG: Image Reviewed Problem List - Problems (1) CHF (congestive heart failure) Code(s): I50.9 - HEART FAILURE, UNSPECIFIED Qualifiers: Heart failure type: diastolic (2) Cellulitis Code(s): L03.90 - CELLULITIS, UNSPECIFIED (3) Atrial fibrillation Code(s): I48.91 - UNSPECIFIED ATRIAL FIBRILLATION (4) COPD (chronic obstructive pulmonary disease) Code(s): J44.9 - CHRONIC OBSTRUCTIVE PULMONARY DISEASE, UNSPECIFIED (5) Elevated troponin Code(s): R74.8 - ABNORMAL LEVELS OF OTHER SERUM ENZYMES (6) HTN (hypertension) Code(s): I10 - ESSENTIAL (PRIMARY) HYPERTENSION (7) ASHD (arteriosclerotic heart disease) Code(s): I25.10 - ATHSCL HEART DISEASE OF [place] CORONARY ARTERY W/O ANG PCTRS Assessment/Plan PLAN Elevated troponins NSTEMI CHF decompensation -- likely secondary to demand due to CHF, Cellulitis -- on Heparin GTT -- troponins flat -- telemetry -- check Echo -- monitor renal function Cellulitis -- will give one dose Vanco -- Ancef BID -- ID eval -- Add bacid daily Afib -- on heparin GTT -- not on any anticoagulation -- Cardiology eval CKD -- renal function at baseline DVT prophlyaxis-- on Heparin GTT
[2018-08-21] MEDS ORDERED: FERROUS SO4 325 MG TABLET (FP) ONE (10:27)
[2018-08-21] MEDS: predniSONE 10 MG TABLET (UD) PO SCH ×2 (10:29→22:49)
[2018-08-21] MEDS: ASPIRIN 81 MG CHEWABLE TABLETS PO SCH (10:29)
[2018-08-21] MEDS: FERROUS SO4 325 MG TABLET (FP) PO SCH (10:29)
[2018-08-21] MEDS: DOCUSATE SODIUM 100 MG CAPSULE (FP) PO SCH ×2 (10:29→22:49)
[2018-08-21] MEDS: RANITIDINE HCL 150 MG TABLET (FP) PO SCH ×2 (10:29→22:49)
[2018-08-21] MEDS: BUDESONIDE/FORMETEROL FUMARATE 80/4.5 mcg INHALER IH SCH ×2 (10:29→22:56)
[2018-08-21] MEDS: MULTIVITAMINS (DAILY MVI) TABLET (FP) PO SCH (10:29)
[2018-08-21] MEDS ORDERED: ceFAZolin 2 GRAM PREMIX BAG IVPB SCH (10:30)
[2018-08-21] MEDS ORDERED: VANCOMYCIN 1 GM in D5W (PRE-DOCKED) 1,000 MG/250 ML IVPB ONE (11:00)
[2018-08-21] MEDS: VANCOMYCIN 500 MG in DEXTROSE 5%-WATER - 100 ML IVPB ONE ×2 (11:10→12:07)
[2018-08-21] MEDS ORDERED: CEFAZOLIN 1 GM/D5W 2 GM/100 ML BAG ONE (11:15)
[2018-08-21 11:24] LABS: ANISOCYTOSIS 1+; MACROCYTOSIS 1+; OVALOCYTE 1+; PLATELET ESTIMATE NORMAL
[2018-08-21] MEDS: LACTOBACILLUS ACIDOPHILUS 1 TABLET PO SCH (11:35)
--- NOTE | 2018-08-21 11:56 | EKG ---
Test Reason : Blood Pressure : / mmHG Vent. Rate : 113 BPM Atrial Rate : 150 BPM P-R Int : 000 ms QRS Dur : 100 ms QT Int : 326 ms P-R-T Axes : 000 012 171 degrees QTc Int : 447 ms ATRIAL FIBRILLATION WITH RAPID VENTRICULAR RESPONSE ABNORMAL ECG WHEN COMPARED WITH ECG OF 23-APR-2018 07:07, ATRIAL FIBRILLATION HAS REPLACED SINUS RHYTHM VENT. RATE HAS INCREASED BY 37 BPM CRITERIA FOR INFERIOR INFARCT ARE NO LONGER PRESENT T WAVE INVERSION LESS EVIDENT IN ANTERIOR LEADS Confirmed by ELVIN JULIAN, CAYLA ([id number]) on 08/21/2018 11:56:09 AM Referred By: Confirmed By:CAYLA OCONNOR MD
--- NOTE | 2018-08-21 12:05 | EKG ---
Test Reason : Blood Pressure : / mmHG Vent. Rate : 090 BPM Atrial Rate : 104 BPM P-R Int : 000 ms QRS Dur : 098 ms QT Int : 332 ms P-R-T Axes : 000 010 158 degrees QTc Int : 406 ms ATRIAL FIBRILLATION ABNORMAL ECG WHEN COMPARED WITH ECG OF 23-APR-2018 07:07, ATRIAL FIBRILLATION HAS REPLACED SINUS RHYTHM CRITERIA FOR INFERIOR INFARCT ARE NO LONGER PRESENT Confirmed by ELVIN JULIAN, CAYLA ([id number]) on 08/21/2018 12:05:21 PM Referred By: Confirmed By:CAYLA OCONNOR MD
--- NOTE | 2018-08-21 12:06 | PN ---
Progress Note, Physician History of Present Illness: 88 YOM with h/o polycystic kidney disease, CKD stage 4, AAA s/p repair, CAD and CABG in 2007, HTN, HLD, GERD, COPD, anemia, allergies, depression from [facility] with worsening SOB and leg swelling for the pat week. Patient had bilateral dopplers performed 3 days prior (08/17/2018) to presentation which ruled out clots. He states that he is on blood thinners but there are no records for any blood thinners. Denies any fevers, chills, nausea vomiting, diarrhea, or other symptoms. 08/20/18 18:56 - Current Medication List Current Medications: Active Medications Acetaminophen (Tylenol -) 650 mg PO Q6H PRN PRN Reason: FEVER Last Admin: 08/20/18 23:10 Dose: 650 mg Albuterol/Ipratropium (Duoneb -) 1 amp NEB RQID [facility] Last Admin: 08/21/18 08:29 Dose: Not Given Artificial Tears (Artificial Tears) 1 drop OU Q4H PRN PRN Reason: DRY EYES Aspirin (Asa -) 81 mg PO DAILY [facility] Last Admin: 08/21/18 10:29 Dose: 81 mg Budesonide/Formoterol Fumarate (Symbicort 80/4.5mcg -) 2 puff IH BID [facility] Last Admin: 08/21/18 10:29 Dose: 2 puff Chlorhexidine Gluconate (Peridex -) 15 ml MM BID [facility] Last Admin: 08/21/18 10:29 Dose: Not Given Diltiazem HCl (Cardizem -) 30 mg PO TID [facility] Last Admin: 08/21/18 07:15 Dose: 30 mg Docusate Sodium (Colace -) 100 mg PO BID [facility] Last Admin: 08/21/18 10:29 Dose: 100 mg Ferrous Sulfate (Feosol -) 325 mg PO DAILY [facility] Last Admin: 08/21/18 10:29 Dose: 325 mg Furosemide (Lasix Injection -) 40 mg IVPUSH BID@0600,1400 [facility] Last Admin: 08/21/18 07:18 Dose: 40 mg Heparin Sodium (Porcine) (Heparin -) 1,000 unit IVPUSH PRN PRN PRN Reason: Heparin Hydralazine HCl (Apresoline -) 50 mg PO TID [facility] Last Admin: 08/21/18 07:15 Dose: 50 mg HEPARIN SOD,PORK IN 0.45% NACL (Heparin-1/2ns 25,000 Units/500) 25,000 units in 500 mls @ 20 mls/hr IVPB TITR [facility]; Protocol Last Admin: 08/20/18 23:50 Dose: 1,000 units/hr, 20 mls/hr Cefazolin Sodium/Dextrose (Ancef 2 Gm Premixed Ivpb -) 2 gm in 50 mls @ 100 mls /hr IVPB BID [facility] Vancomycin HCl 500 mg/ (Dextrose) 100 mls @ 100 mls/hr IVPB ONCE ONE; Protocol Stop: 08/21/18 12:44 Last Admin: 08/21/18 11:10 Dose: 100 mls/hr Insulin Aspart (Novolog Vial Sliding Scale -) 1 vial SQ ACHS [facility]; Protocol Last Admin: 08/21/18 11:35 Dose: Not Given Lactobacillus Acidophilus (Bacid -) 1 tab PO DAILY [facility] Last Admin: 08/21/18 11:35 Dose: 1 tab Mirtazapine (Remeron -) 30 mg PO [facility] Montelukast Sodium (Singulair -) 10 mg PO [facility] Multivitamins/Minerals/Vitamin C (Tab-A-Vit -) 1 tab PO DAILY [facility] Last Admin: 08/21/18 10:29 Dose: 1 tab Prednisone (Deltasone -) 10 mg PO BID [facility] Last Admin: 08/21/18 10:29 Dose: 10 mg Ranitidine HCl (Zantac -) 150 mg PO BID [facility] Last Admin: 08/21/18 10:29 Dose: 150 mg Senna (Senna -) 2 tab PO [facility] - Objective Vital Signs: Vital Signs Temperature 98.0 F 08/21/18 09:11 Pulse Rate 110 H 08/21/18 09:11 Respiratory Rate 18 08/21/18 09:11 Blood Pressure 133/68 08/21/18 09:11 O2 Sat by Pulse Oximetry (%) 98 08/21/18 09:11 Eyes: Yes: WNL, Conjunctiva Clear, EOM Intact HENT: Yes: WNL, Atraumatic, Normocephalic Neck: Yes: WNL, Supple, Trachea Midline Cardiovascular: Yes: Pulse Irregular, S1, S2 Respiratory: Yes: WNL, Regular, CTA Bilaterally Gastrointestinal: Yes: WNL, Normal Bowel Sounds Genitourinary: Yes: WNL Musculoskeletal: Yes: WNL Extremities: Yes: WNL Edema: Yes Integumentary: Yes: WNL Neurological: Yes: WNL, Alert, Oriented ...Motor Strength: WNL Psychiatric: Yes: WNL Labs: CBC, BMP 08/21/18 08:50 08/21/18 08:50 INR, PTT INR 0.94 (0.83-1.09) 08/21/18 08:50 Problem List - Problems (1) Atrial fibrillation Code(s): I48.91 - UNSPECIFIED ATRIAL FIBRILLATION (2) CHF (congestive heart failure) Code(s): I50.9 - HEART FAILURE, UNSPECIFIED Qualifiers: Heart failure type: diastolic (3) COPD (chronic obstructive pulmonary disease) Code(s): J44.9 - CHRONIC OBSTRUCTIVE PULMONARY DISEASE, UNSPECIFIED (4) Cellulitis Code(s): L03.90 - CELLULITIS, UNSPECIFIED (5) DM type 2 (diabetes mellitus, type 2) Code(s): E11.9 - TYPE 2 DIABETES MELLITUS WITHOUT COMPLICATIONS (6) Elevated troponin Code(s): R74.8 - ABNORMAL LEVELS OF OTHER SERUM ENZYMES (7) HTN (hypertension) Code(s): I10 - ESSENTIAL (PRIMARY) HYPERTENSION (8) Prophylactic measure Code(s): Z29.9 - ENCOUNTER FOR PROPHYLACTIC MEASURES, UNSPECIFIED (9) ASHD (arteriosclerotic heart disease) Code(s): I25.10 - ATHSCL HEART DISEASE OF [place] CORONARY ARTERY W/O ANG PCTRS (10) Bronchitis Code(s): J40 - BRONCHITIS, NOT SPECIFIED ACUTE OR CHRONIC (11) CKD (chronic kidney disease) Code(s): N18.9 - CHRONIC KIDNEY DISEASE, UNSPECIFIED Qualifiers: Chronic kidney disease stage: stage 3 (moderate) Qualified Code(s): N18.3 - Chronic kidney disease, stage 3 (moderate) (12) COPD exacerbation Code(s): J44.1 - CHRONIC OBSTRUCTIVE PULMONARY DISEASE W (ACUTE) EXACERBATION (13) Chest pain Code(s): R07.9 - CHEST PAIN, UNSPECIFIED (14) Pneumonia Code(s): J18.9 - PNEUMONIA, UNSPECIFIED ORGANISM (15) Sepsis Code(s): A41.9 - SEPSIS, UNSPECIFIED ORGANISM (16) Wheezing Code(s): R06.2 - WHEEZING Assessment/Plan 88 YOM with h/o polycystic kidney disease, CKD stage 4, AAA s/p repair, CAD and CABG in 2006, HTN, HLD, GERD, COPD, anemia, allergies, depression from [facility] with worsening SOB and leg swelling for the pat week. decompensated chf plan telemetry IV lasix echo it is unclear why patient is not on AC for AF if no contraindications would recommend ELIQUIS 2.5 bid
[2018-08-21] MEDS: CEFAZOLIN 2 GM/D5W 2 GM/50 ML ML IVPB SCH ×2 (12:07→22:58)
--- NOTE | 2018-08-21 12:35 | EKG ---
Test Reason : Blood Pressure : / mmHG Vent. Rate : 107 BPM Atrial Rate : 166 BPM P-R Int : 000 ms QRS Dur : 106 ms QT Int : 330 ms P-R-T Axes : 000 002 164 degrees QTc Int : 440 ms ATRIAL FIBRILLATION WITH RAPID VENTRICULAR RESPONSE ABNORMAL ECG WHEN COMPARED WITH ECG OF 20-AUG-2018 19:58, NO SIGNIFICANT CHANGE WAS FOUND Confirmed by CAYLA OCONNOR MD ([id number]) on 08/21/2018 12:35:19 PM Referred By: Confirmed By:CAYLA OCONNOR MD
--- NOTE | 2018-08-21 14:10 | ECHO ---
Name: NICKOLAS NGUYEN Exam:Adult Echocardiogram Study Date: 08/21/2018 10:50 AM Age: 88 yrs Reason For Study: TROP LEAK AND A FIB Height: 69 in Weight: 205 lb BSA: 2.1 m2 MMode/2D Measurements & Calculations IVSd: 1.3 cm Ao root diam: 4.3 cm LVIDd: 4.8 cm LA dimension: 4.0 cm LVIDs: 3.0 cm ACS: 1.4 cm LVPWd: 1.1 cm IVSs: 1.4 cm LVPWs: 1.2 cm EDV(Teich): 105.6 ml ESV(Nicoich): 34.2 ml LVOT diam: 2.1 cm Doppler Measurements & Calculations MV E max antwan: 63.2 cm/sec Ao V2 max: 148.4 cm/sec MV A max antwan: 84.4 cm/sec Ao max P.9 mmHg MV E/A: 0.75 Ao V2 mean: 106.3 cm/sec Ao mean P.2 mmHg Ao V2 VTI: 24.5 cm AMBROCIO(I,D): 2.3 cm2 AMBROCIO(V,D): 2.1 cm2 LV V1 max P.7 mmHg MR max antwan: 501.8 cm/sec LV V1 mean P.1 mmHg MR max P.8 mmHg LV V1 max: 95.2 cm/sec LV V1 mean: 67.6 cm/sec LV V1 VTI: 17.4 cm SV(LVOT): 57.5 ml TR max antwan: 278.8 cm/sec TR max P.1 mmHg Med Peak E' Antwan: 4.5 cm/sec Med E/e': 14.1 Lat Peak E' Antwan: 7.1 cm/sec Lat E/e': 8.9 Procedure The study was technically difficult with many images being suboptimal in quality. Left Ventricle The left ventricle is not well visualized. There is moderate concentric left ventricular hypertrophy. The left ventricular ejection fraction is normal. Regional wall motion abnormalities cannot be excluded due to limited visualization. Right Ventricle The right ventricle is not well visualized. Atria The left atrium is mildly dilated. The right atrium is mildly dilated. Mitral Valve There is moderate mitral valve thickening. There is no mitral valve stenosis. There is mild to modera te mitral regurgitation. Tricuspid Valve The tricuspid valve is not well visualized. There is no tricuspid stenosis. There is moderate to francie re tricuspid regurgitation. Right ventricular systolic pressure is elevated at 40-50mmHg. Aortic Valve The aortic valve is trileaflet. There is moderate aortic valve thickening. There is moderate aortic sclerosis.;. No hemodynamically significant valvular aortic stenosis. No aortic regurgitation is pres ent. Pulmonic Valve The pulmonic valve is not well visualized. Great Vessels Moderate aortic root dilatation. Pericardium/Pleura There is no pericardial effusion. Interpretation Summary The left ventricle is not well visualized. There is moderate concentric left ventricular hypertrophy. The left ventricular ejection fraction is normal. Regional wall motion abnormalities cannot be excluded due to limited visualization. There is moderate to severe tricuspid regurgitation. Right ventricular systolic pressure is elevated at 40-50mmHg. The aortic valve is trileaflet. There is moderate aortic valve thickening. There is moderate aortic sclerosis.; The left atrium is mildly dilated. The right atrium is mildly dilated. There is mild to moderate mitral regurgitation. Moderate aortic root dilatation. MD Volodymyr Loyola 08/21/2018 02:09 PM
--- NOTE | 2018-08-21 17:31 | PN ---
Progress Note (short form) - Note Progress Note: ID consult dictted imp/reccd rel swelling and erythema c/w cellulitis new onset afib CKD agree with cefazolin dose adjusted for ckd cardiology to manage afib Problem List - Problems (1) Cellulitis Code(s): L03.90 - CELLULITIS, UNSPECIFIED Qualifiers: Site of cellulitis: extremity Laterality: right (2) Atrial fibrillation Code(s): I48.91 - UNSPECIFIED ATRIAL FIBRILLATION (3) CKD (chronic kidney disease) Code(s): N18.9 - CHRONIC KIDNEY DISEASE, UNSPECIFIED Qualifiers: Chronic kidney disease stage: stage 3 (moderate) Qualified Code(s): N18.3 - Chronic kidney disease, stage 3 (moderate)
[2018-08-21] MEDS: HEPARIN SOD,PORK IN 0.45% NACL 25,000 UNITS/500 ML INFUS.BAG IVPB SCH (19:00)
[2018-08-21] MEDS ORDERED: MIRTAZAPINE 15 MG TABLET (FP) ONE (22:37)
[2018-08-21] MEDS: MIRTAZAPINE 30 MG TABLET (FP) PO SCH (22:49)
[2018-08-21] MEDS: SENNOSIDES 8.6MG TABLET (FP) PO SCH (22:49)
[2018-08-21] MEDS: MONTELUKAST NA 10 MG TABLET PO SCH (22:49)
[2018-08-22] MEDS: INSULIN SLIDING SCALE (NOVOLOG) 1 VIAL SQ SCH ×4 (06:29→21:24)
[2018-08-22] MEDS: dilTIAZem HCL 30 MG TABLET (FP) PO SCH ×3 (07:01→21:01)
[2018-08-22] MEDS: hydrALAZINE HCL 50 MG TABLET (FP) PO SCH ×3 (07:01→21:02)
[2018-08-22] MEDS: FUROSEMIDE 40 MG/4 ML INJECTABLE VIAL IVPUSH SCH ×2 (07:01→13:48)
[2018-08-22 07:09] LABS: HEMATOCRIT 32.4 % (35.4-49); HEMOGLOBIN 10.9 GM/dL (11.7-16.9); MCH 32.8 pg (25.7-33.7); MCHC 33.8 g/dl (32.0-35.9); MEAN CELL VOLUME 97.2 fl (80-96); MEAN PLT VOLUME 8.5 fl (7.5-11.1); PLATELET COUNT 192 K/MM3 (134-434); RBC 3.34 M/mm3 (4.00-5.60); RDW 15.6 % (11.9-15.9); WHITE BLOOD COUNT 9.2 K/mm3 (4.0-10.0)
[2018-08-22] MEDS: ALBUTEROL SO4 2.5/IPRATROPIUM 0.5 INH SOL 3 ML VIAL.NEB. NEB SCH ×4 (08:45→20:21)
[2018-08-22] MEDS: ASPIRIN 81 MG CHEWABLE TABLETS PO SCH (09:35)
[2018-08-22] MEDS: predniSONE 10 MG TABLET (UD) PO SCH ×2 (09:35→21:02)
[2018-08-22] MEDS: DOCUSATE SODIUM 100 MG CAPSULE (FP) PO SCH ×2 (09:35→21:02)
[2018-08-22] MEDS: FERROUS SO4 325 MG TABLET (FP) PO SCH (09:35)
[2018-08-22] MEDS: MULTIVITAMINS (DAILY MVI) TABLET (FP) PO SCH (09:36)
[2018-08-22] MEDS: LACTOBACILLUS ACIDOPHILUS 1 TABLET PO SCH (09:36)
[2018-08-22] MEDS: RANITIDINE HCL 150 MG TABLET (FP) PO SCH ×2 (09:36→21:02)
[2018-08-22] MEDS: CEFAZOLIN 2 GM/D5W 2 GM/50 ML ML IVPB SCH ×2 (09:36→21:04)
[2018-08-22] MEDS: BUDESONIDE/FORMETEROL FUMARATE 80/4.5 mcg INHALER IH SCH ×2 (09:37→21:10)
--- NOTE | 2018-08-22 11:07 | CONS ---
DATE OF CONSULTATION: DATE OF DICTATION: 08/21/2018 INFECTIOUS DISEASE CONSULTATION REQUESTING PHYSICIAN: Jenna Nicole M.D. CONSULTING PHYSICIAN: Gregg Luo M.D. HISTORY OF PRESENT ILLNESS: This is an 88-year-old man who is admitted from [facility]. He noted last several days that he developed right lower extremity erythema, edema, and pain. He was evaluated there with Dopplers that were negative for DVT, referred to the hospital. In the emergency room he was noted to be in atrial fibrillation and is noted to have an elevated BNP and a troponin of 0.18. He was admitted for further evaluation. PAST MEDICAL HISTORY: Notable for coronary artery disease, hypertension, hyperlipidemia, bronchitis, COPD, GERD, renal insufficiency, has polycystic kidney disease, anemia, depression, diabetes. SURGICAL HISTORY: Notable for abdominal aneurysm repair and CABG. SOCIAL HISTORY: There is no history of any cigarette, alcohol, or substance use. 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 His last travel was to [place] 2 years ago. ALLERGIES: No known drug allergies. MEDICATION: Include aspirin, Symbicort, vitamin D, Cardizem, famotidine, ferrous sulfate, hydralazine, DuoNeb, mirtazapine, senna, , Pepcid, Singulair, multivitamins. FAMILY HISTORY: Notable for cancer, multiple relatives. REVIEW OF SYSTEMS: He reports that his leg pain is completely resolved. He notes he still has erythema of the leg, and he reports that this is new. At baseline he is unable to walk. He reports now that he is feeling great, and that he wishes to [facility] the [facility] tomorrow. PHYSICAL EXAMINATION: GENERAL: He is awake and alert, in no acute distress. VITAL SIGNS: Temperature 98, T-max was 99.3, pulse 117, blood pressure 146/84, respiratory rate 20. HEENT: Normocephalic. Eyes are anicteric. NECK: Supple. LUNGS: Clear to auscultation. HEART: Regular rate and rhythm. ABDOMEN: Soft, nontender. EXTREMITIES: Notable for erythema of the right leg, which is tender to touch. He has 2+ edema bilaterally and clear lungs. His heart rate is . LABORATORY: Notable for white count of 8.6, hemoglobin 2.4, platelets 175. BUN and creatinine are 64 and 2.6, with troponin of 0.16. No cultures were sent. IMAGING: He had a duplex of his right leg that was negative for deep venous thrombosis and he had a chest x-ray that shows cardiomegaly without any gross lung disease. IMPRESSION: 1. In summary, this is an elderly man admitted from the [facility] with erythema and swelling of his right leg, consistent with cellulitis, and new onset atrial fibrillation. I would agree that he has been started on cephazolin which seems appropriate at this time, unfortunately blood cultures were not sent, and his antibiotics have been started. It could be low value to draw antibiotics at this time, so we will continue to monitor him for improvement. 2. New onset atrial fibrillation, management per cardiology. GREGG LUO M.D. [id number]
--- NOTE | 2018-08-22 11:09 | PN ---
Progress Note (short form) - Note Progress Note: patient saying he wants to go home Denies shortness of breath or leg pain Denies chest pain Vital Signs - 24 hr 08/21/18 08/21/18 08/21/18 14:24 16:23 17:58 Temperature 99.3 F 98.2 F 98 F Pulse Rate 117 H Pulse Rate [ 129 H 97 H Apical] Respiratory 18 20 20 Rate Blood Pressure 146/84 Blood Pressure 171/90 H 169/101 H [Left Arm] O2 Sat by Pulse 97 100 98 Oximetry (%) 08/21/18 08/21/18 08/21/18 18:00 20:33 20:38 Temperature 98 F 97.6 F Pulse Rate 117 H 92 H Pulse Rate [ Apical] Respiratory 20 20 Rate Blood Pressure 146/84 160/88 Blood Pressure [Left Arm] O2 Sat by Pulse 97 Oximetry (%) 08/22/18 06:00 Temperature Pulse Rate 74 Pulse Rate [ Apical] Respiratory 20 Rate Blood Pressure 155/94 Blood Pressure [Left Arm] O2 Sat by Pulse Oximetry (%) Current Medications Generic Name Dose Route Start Last Admin Trade Name Freq PRN Reason Stop Dose Admin Acetaminophen 650 mg 08/20/18 22:44 08/20/18 23:10 Tylenol - PO 650 mg Q6H PRN Administration FEVER Albuterol/Ipratropium 1 amp 08/20/18 23:30 08/22/18 08:45 Duoneb - NEB 1 amp RQID KG Administration Artificial Tears 1 drop 08/20/18 22:55 Artificial Tears OU Q4H PRN DRY EYES Aspirin 81 mg 08/21/18 10:00 08/22/18 09:35 Asa - PO 81 mg DAILY KG Administration Budesonide/Formoterol Fumarate 2 puff 08/20/18 23:30 08/22/18 09:37 Symbicort 80/4.5mcg - IH 2 puff BID KG Administration Chlorhexidine Gluconate 15 ml 08/20/18 23:30 08/22/18 12:07 Peridex - MM Not Given BID KG Diltiazem HCl 30 mg 08/20/18 23:30 08/22/18 13:52 Cardizem - PO 30 mg TID KG Administration Docusate Sodium 100 mg 08/21/18 10:00 08/22/18 09:35 Colace - PO 100 mg BID KG Administration Ferrous Sulfate 325 mg 08/21/18 10:00 08/22/18 09:35 Feosol - PO 325 mg DAILY KG Administration Furosemide 40 mg 08/21/18 06:00 08/22/18 13:48 Lasix Injection - IVPUSH 40 mg BID@0600,1400 KG Administration Heparin Sodium (Porcine) 1,000 unit 08/20/18 22:54 Heparin - IVPUSH PRN PRN Heparin Hydralazine HCl 50 mg 08/20/18 23:30 08/22/18 13:48 Apresoline - PO 50 mg TID KG Administration HEPARIN SOD,PORK IN 0.45% NACL 25,000 units in 500 mls @ 20 mls/hr 08/20/18 23 :30 08/21/18 19:00 Heparin-1/2ns 25,000 Units/500 IVPB 1,000 units/hr TITR KG 20 mls/hr Administration Protocol 1,000 UNITS/HR Cefazolin Sodium/Dextrose 2 gm in 50 mls @ 100 mls/hr 08/21/18 11:15 09:36 Ancef 2 Gm Premixed Ivpb - IVPB 100 mls/hr BID KG Administration Insulin Aspart 1 vial 08/21/18 07:00 08/22/18 12:03 Novolog Vial Sliding Scale - SQ Not Given ACHS [facility] Protocol Isosorbide Mononitrate 30 mg 08/22/18 12:30 08/22/18 12:50 Imdur - PO 30 mg DAILY KG Administration Lactobacillus Acidophilus 1 tab 08/21/18 10:45 08/22/18 09:36 Bacid - PO 1 tab DAILY KG Administration Mirtazapine 30 mg 08/21/18 22:00 08/21/18 22:49 Remeron - PO 30 mg HS KG Administration Montelukast Sodium 10 mg 08/21/18 22:00 08/21/18 22:49 Singulair - PO 10 mg HS KG Administration Multivitamins/Minerals/Vitamin C 1 tab 08/21/18 10:00 08/22/18 09:36 Tab-A-Vit - PO 1 tab DAILY KG Administration Prednisone 10 mg 08/20/18 23:30 08/22/18 09:35 Deltasone - PO 10 mg BID KG Administration Ranitidine HCl 150 mg 08/20/18 23:30 08/22/18 09:36 Zantac - PO 150 mg BID KG Administration Senna 2 tab 08/21/18 22:00 08/21/18 22:49 Senna - PO 2 tab HS KG Administration Laboratory Results - last 24 hr 08/21/18 08/21/18 08/21/18 15:00 15:00 17:45 WBC RBC Hgb Hct MCV MCH MCHC RDW Plt Count MPV PTT (Actin FS) 52.8 H POC Glucometer 187 Creatine Kinase 38 Troponin I 0.16 H 08/21/18 08/22/18 08/22/18 22:33 06:20 06:20 WBC 9.2 RBC 3.34 L Hgb 10.9 L Hct 32.4 L MCV 97.2 H MCH 32.8 MCHC 33.8 RDW 15.6 Plt Count 192 MPV 8.5 PTT (Actin FS) 57.7 H POC Glucometer 111 Creatine Kinase Troponin I 08/22/18 08/22/18 06:23 12:01 WBC RBC Hgb Hct MCV MCH MCHC RDW Plt Count MPV PTT (Actin FS) POC Glucometer 146 154 Creatine Kinase Troponin I S1 and S2 irregular, lungs decreased breath sounds abdomen soft, obese, nontender Extremitiesedema has decreased bilaterally, erythema and warmth noted on the right lower extremity plan Infectious disease consult and cardiology consult appreciated Continue with antibiotics Continue with Lasix and monitoring renal function Patient is on heparin drip, may need to change to oral anticoagulation Echocardiogram Problem List - Problems (1) CHF (congestive heart failure) Code(s): I50.9 - HEART FAILURE, UNSPECIFIED Qualifiers: Heart failure type: diastolic (2) Cellulitis Code(s): L03.90 - CELLULITIS, UNSPECIFIED Qualifiers: Site of cellulitis: extremity Laterality: right (3) Atrial fibrillation Code(s): I48.91 - UNSPECIFIED ATRIAL FIBRILLATION (4) COPD (chronic obstructive pulmonary disease) Code(s): J44.9 - CHRONIC OBSTRUCTIVE PULMONARY DISEASE, UNSPECIFIED (5) Elevated troponin Code(s): R74.8 - ABNORMAL LEVELS OF OTHER SERUM ENZYMES (6) HTN (hypertension) Code(s): I10 - ESSENTIAL (PRIMARY) HYPERTENSION (7) ASHD (arteriosclerotic heart disease) Code(s): I25.10 - ATHSCL HEART DISEASE OF [place] CORONARY ARTERY W/O ANG PCTRS
--- NOTE | 2018-08-22 11:25 | PN ---
Progress Note, Physician Chief Complaint: Pt is anxious; he thought he was going home yesterday. 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 Patient had bilateral dopplers performed 3 days prior (08/17/2018) to presentation which ruled out clots. He states that he is on blood thinners but there are no records for any blood thinners. Denies any fevers, chills, nausea vomiting, diarrhea, or other symptoms. - Current Medication List Current Medications: Active Medications Acetaminophen (Tylenol -) 650 mg PO Q6H PRN PRN Reason: FEVER Last Admin: 08/20/18 23:10 Dose: 650 mg Albuterol/Ipratropium (Duoneb -) 1 amp NEB RQID [facility] Last Admin: 08/22/18 08:45 Dose: 1 amp Artificial Tears (Artificial Tears) 1 drop OU Q4H PRN PRN Reason: DRY EYES Aspirin (Asa -) 81 mg PO DAILY [facility] Last Admin: 08/22/18 09:35 Dose: 81 mg Budesonide/Formoterol Fumarate (Symbicort 80/4.5mcg -) 2 puff IH BID [facility] Last Admin: 08/22/18 09:37 Dose: 2 puff Chlorhexidine Gluconate (Peridex -) 15 ml MM BID [facility] Last Admin: 08/21/18 22:50 Dose: Not Given Diltiazem HCl (Cardizem -) 30 mg PO TID [facility] Last Admin: 08/22/18 07:01 Dose: 30 mg Docusate Sodium (Colace -) 100 mg PO BID [facility] Last Admin: 08/22/18 09:35 Dose: 100 mg Ferrous Sulfate (Feosol -) 325 mg PO DAILY [facility] Last Admin: 08/22/18 09:35 Dose: 325 mg Furosemide (Lasix Injection -) 40 mg IVPUSH BID@0600,1400 [facility] Last Admin: 08/22/18 07:01 Dose: 40 mg Heparin Sodium (Porcine) (Heparin -) 1,000 unit IVPUSH PRN PRN PRN Reason: Heparin Hydralazine HCl (Apresoline -) 50 mg PO TID [facility] Last Admin: 08/22/18 07:01 Dose: 50 mg HEPARIN SOD,PORK IN 0.45% NACL (Heparin-1/2ns 25,000 Units/500) 25,000 units in 500 mls @ 20 mls/hr IVPB TITR [facility]; Protocol Last Admin: 08/21/18 19:00 Dose: 1,000 units/hr, 20 mls/hr Cefazolin Sodium/Dextrose (Ancef 2 Gm Premixed Ivpb -) 2 gm in 50 mls @ 100 mls /hr IVPB BID [facility] Last Admin: 08/22/18 09:36 Dose: 100 mls/hr Insulin Aspart (Novolog Vial Sliding Scale -) 1 vial SQ ACHS [facility]; Protocol Last Admin: 08/22/18 06:29 Dose: Not Given Lactobacillus Acidophilus (Bacid -) 1 tab PO DAILY [facility] Last Admin: 08/22/18 09:36 Dose: 1 tab Mirtazapine (Remeron -) 30 mg PO HS [facility] Last Admin: 08/21/18 22:49 Dose: 30 mg Montelukast Sodium (Singulair -) 10 mg PO HS [facility] Last Admin: 08/21/18 22:49 Dose: 10 mg Multivitamins/Minerals/Vitamin C (Tab-A-Vit -) 1 tab PO DAILY [facility] Last Admin: 08/22/18 09:36 Dose: 1 tab Prednisone (Deltasone -) 10 mg PO BID [facility] Last Admin: 08/22/18 09:35 Dose: 10 mg Ranitidine HCl (Zantac -) 150 mg PO BID [facility] Last Admin: 08/22/18 09:36 Dose: 150 mg Senna (Senna -) 2 tab PO HS [facility] Last Admin: 08/21/18 22:49 Dose: 2 tab - Objective Vital Signs: Vital Signs Temperature 97.6 F 08/21/18 20:38 Pulse Rate 74 08/22/18 06:00 Respiratory Rate 20 08/22/18 06:00 Blood Pressure 155/94 08/22/18 06:00 O2 Sat by Pulse Oximetry (%) 97 08/21/18 20:33 Constitutional: Yes: Anxious Eyes: Yes: WNL HENT: Yes: WNL Neck: Yes: WNL Cardiovascular: Yes: S1 (varies in intensity), S2, S4 Gastrointestinal: Yes: Soft ...Rectal Exam: Yes: Deferred Genitourinary: No: Anuria Musculoskeletal: Yes: Muscle Weakness Extremities: Yes: Cool Edema: Yes Edema: RLE: 1+ Peripheral Pulses WNL: Yes Integumentary: Yes: Erythema (right LE) Neurological: Yes: Alert, Weakness Psychiatric: Yes: Alert Labs: CBC, BMP 08/22/18 06:20 08/21/18 08:50 INR, PTT INR 0.94 (0.83-1.09) 08/21/18 08:50 Abnormal Lab Results 08/20/18 08/21/18 08/21/18 18:53 15:00 15:00 RBC Hgb Hct MCV PTT (Actin FS) 52.8 H Chloride 114 H Carbon Dioxide 20 L BUN 61 H Creatinine 2.4 H Random Glucose 137 H Calcium 8.1 L AST 12 L Troponin I 0.18 H 0.16 H B-Natriuretic Peptide 8449.9 H Total Protein 5.2 L Albumin 2.9 L 08/22/18 08/22/18 06:20 06:20 RBC 3.34 L Hgb 10.9 L Hct 32.4 L MCV 97.2 H PTT (Actin FS) 57.7 H Chloride Carbon Dioxide BUN Creatinine Random Glucose Calcium AST Troponin I B-Natriuretic Peptide Total Protein Albumin Abnormal Lab Results 08/20/18 08/21/18 08/21/18 18:53 15:00 15:00 RBC Hgb Hct MCV PTT (Actin FS) 52.8 H Chloride 114 H Carbon Dioxide 20 L BUN 61 H Creatinine 2.4 H Random Glucose 137 H Calcium 8.1 L AST 12 L Troponin I 0.18 H 0.16 H B-Natriuretic Peptide 8449.9 H Total Protein 5.2 L Albumin 2.9 L 08/22/18 08/22/18 06:20 06:20 RBC 3.34 L Hgb 10.9 L Hct 32.4 L MCV 97.2 H PTT (Actin FS) 57.7 H Chloride Carbon Dioxide BUN Creatinine Random Glucose Calcium AST Troponin I B-Natriuretic Peptide Total Protein Albumin - ....Imaging Ultrasound: Report Reviewed (ECHO: normal LVEF; moderately severe TR and pulmonary HTN) EKG: Image Reviewed (AF) Problem List - Problems (1) Polycystic kidney disease Code(s): Q61.3 - POLYCYSTIC KIDNEY, UNSPECIFIED (2) Atrial fibrillation Assessment/Plan: on diltiazdem for HR control (and BP). ON IV heparin for anticoagulation. Evaluate whether ASA needs to be continued. Code(s): I48.91 - UNSPECIFIED ATRIAL FIBRILLATION (3) Cellulitis Assessment/Plan: On antibiotics. Code(s): L03.90 - CELLULITIS, UNSPECIFIED Qualifiers: Site of cellulitis: extremity Laterality: right (4) DM type 2 (diabetes mellitus, type 2) Code(s): E11.9 - TYPE 2 DIABETES MELLITUS WITHOUT COMPLICATIONS (5) Elevated troponin Assessment/Plan: multiple contributors for demand ischemia, including AF with RVR; CHF, COPD, renal dysfunction, anemia. ECHO: normal LVEF. Code(s): R74.8 - ABNORMAL LEVELS OF OTHER SERUM ENZYMES (6) HTN (hypertension) Assessment/Plan: On hydralazine (add Imdur); diltiazem; IV furosemide. Code(s): I10 - ESSENTIAL (PRIMARY) HYPERTENSION (7) COPD exacerbation Code(s): J44.1 - CHRONIC OBSTRUCTIVE PULMONARY DISEASE W (ACUTE) EXACERBATION
[2018-08-22] MEDS: CHLORHEXIDINE GLUCONATE 0.12% 15ML CUP MM SCH ×2 (12:07→21:10)
[2018-08-22] MEDS: ISOSORBIDE MONONITRATE 30 MG TAB.SR.24H (FP) PO SCH (12:50)
[2018-08-22] MEDS ORDERED: MIRTAZAPINE 15 MG TABLET (FP) ONE (20:37)
[2018-08-22] MEDS: MONTELUKAST NA 10 MG TABLET PO SCH (21:02)
[2018-08-22] MEDS: APIXABAN 2.5 MG TABLET PO SCH (21:02)
[2018-08-22] MEDS: SENNOSIDES 8.6MG TABLET (FP) PO SCH (21:02)
[2018-08-22] MEDS: MIRTAZAPINE 30 MG TABLET (FP) PO SCH (21:02)
[2018-08-22] MEDS: dilTIAZem HCL 60 MG TABLET (FP) PO SCH (22:47)
[2018-08-23 04:15] LABS: CK-MM 100 % (97-100)
[2018-08-23] MEDS: dilTIAZem HCL 60 MG TABLET (FP) PO SCH ×3 (06:46→23:24)
[2018-08-23] MEDS: FUROSEMIDE 40 MG/4 ML INJECTABLE VIAL IVPUSH SCH ×2 (06:46→14:05)
[2018-08-23] MEDS: hydrALAZINE HCL 50 MG TABLET (FP) PO SCH ×4 (06:46→23:40)
[2018-08-23] MEDS: INSULIN SLIDING SCALE (NOVOLOG) 1 VIAL SQ SCH ×5 (06:47→23:47)
[2018-08-23] MEDS: ALBUTEROL SO4 2.5/IPRATROPIUM 0.5 INH SOL 3 ML VIAL.NEB. NEB SCH ×5 (08:04→23:01)
[2018-08-23] MEDS ORDERED: PT OWN MED DRAWER 7, Y5N ONE (09:25)
[2018-08-23] MEDS: RANITIDINE HCL 150 MG TABLET (FP) PO SCH ×3 (10:21→23:45)
[2018-08-23] MEDS: FERROUS SO4 325 MG TABLET (FP) PO SCH (10:21)
[2018-08-23] MEDS: ISOSORBIDE MONONITRATE 30 MG TAB.SR.24H (FP) PO SCH (10:21)
[2018-08-23] MEDS: ASPIRIN 81 MG CHEWABLE TABLETS PO SCH (10:21)
[2018-08-23] MEDS: MULTIVITAMINS (DAILY MVI) TABLET (FP) PO SCH (10:21)
[2018-08-23] MEDS: LACTOBACILLUS ACIDOPHILUS 1 TABLET PO SCH (10:21)
[2018-08-23] MEDS: BUDESONIDE/FORMETEROL FUMARATE 80/4.5 mcg INHALER IH SCH ×2 (10:21→23:24)
[2018-08-23] MEDS: APIXABAN 2.5 MG TABLET PO SCH ×3 (10:21→23:40)
[2018-08-23] MEDS: CEFAZOLIN 2 GM/D5W 2 GM/50 ML ML IVPB SCH ×2 (10:22→23:28)
[2018-08-23] MEDS: DOCUSATE SODIUM 100 MG CAPSULE (FP) PO SCH ×3 (10:22→23:40)
[2018-08-23] MEDS: predniSONE 10 MG TABLET (UD) PO SCH (10:22)
[2018-08-23] MEDS: CHLORHEXIDINE GLUCONATE 0.12% 15ML CUP MM SCH ×2 (10:24→23:24)
--- NOTE | 2018-08-23 16:15 | PN ---
Progress Note, Physician History of Present Illness: 88 YOM with h/o polycystic kidney disease, CKD stage 4, AAA s/p repair, CAD and CABG in 2007, HTN, HLD, GERD, COPD, anemia, allergies, depression from [facility] with worsening SOB and leg swelling for the pat week. Patient had bilateral dopplers performed 3 days prior (08/17/2018) to presentation which ruled out clots. He states that he is on blood thinners but there are no records for any blood thinners. Denies any fevers, chills, nausea vomiting, diarrhea, or other symptoms. 08/20/18 18:56 - Current Medication List Current Medications: Active Medications Acetaminophen (Tylenol -) 650 mg PO Q6H PRN PRN Reason: FEVER Last Admin: 08/20/18 23:10 Dose: 650 mg Albuterol/Ipratropium (Duoneb -) 1 amp NEB RQID [facility] Last Admin: 08/23/18 16:00 Dose: Not Given Apixaban (Eliquis -) 2.5 mg PO BID [facility] Last Admin: 08/23/18 10:21 Dose: 2.5 mg Artificial Tears (Artificial Tears) 1 drop OU Q4H PRN PRN Reason: DRY EYES Aspirin (Asa -) 81 mg PO DAILY [facility] Last Admin: 08/23/18 10:21 Dose: 81 mg Budesonide/Formoterol Fumarate (Symbicort 80/4.5mcg -) 2 puff IH BID [facility] Last Admin: 08/23/18 10:21 Dose: 2 puff Chlorhexidine Gluconate (Peridex -) 15 ml MM BID [facility] Last Admin: 08/23/18 10:24 Dose: Not Given Diltiazem HCl (Cardizem -) 60 mg PO TID [facility] Last Admin: 08/23/18 14:05 Dose: 60 mg Docusate Sodium (Colace -) 100 mg PO BID [facility] Last Admin: 08/23/18 10:22 Dose: 100 mg Ferrous Sulfate (Feosol -) 325 mg PO DAILY [facility] Last Admin: 08/23/18 10:21 Dose: 325 mg Furosemide (Lasix Injection -) 40 mg IVPUSH BID@0600,1400 [facility] Last Admin: 08/23/18 14:05 Dose: 40 mg Hydralazine HCl (Apresoline -) 50 mg PO TID [facility] Last Admin: 08/23/18 14:05 Dose: 50 mg Cefazolin Sodium/Dextrose (Ancef 2 Gm Premixed Ivpb -) 2 gm in 50 mls @ 100 mls /hr IVPB BID [facility] Last Admin: 08/23/18 10:22 Dose: 100 mls/hr Insulin Aspart (Novolog Vial Sliding Scale -) 1 vial SQ ACHS [facility]; Protocol Last Admin: 08/23/18 12:12 Dose: 2 unit Isosorbide Mononitrate (Imdur -) 30 mg PO DAILY [facility] Last Admin: 08/23/18 10:21 Dose: 30 mg Lactobacillus Acidophilus (Bacid -) 1 tab PO DAILY [facility] Last Admin: 08/23/18 10:21 Dose: 1 tab Mirtazapine (Remeron -) 30 mg PO [facility] Last Admin: 08/22/18 21:02 Dose: 30 mg Montelukast Sodium (Singulair -) 10 mg PO [facility] Last Admin: 08/22/18 21:02 Dose: 10 mg Multivitamins/Minerals/Vitamin C (Tab-A-Vit -) 1 tab PO DAILY [facility] Last Admin: 08/23/18 10:21 Dose: 1 tab Prednisone (Deltasone -) 10 mg PO BID [facility] Last Admin: 08/23/18 10:22 Dose: 10 mg Ranitidine HCl (Zantac -) 150 mg PO BID [facility] Last Admin: 08/23/18 10:21 Dose: 150 mg Senna (Senna -) 2 tab PO [facility] Last Admin: 08/22/18 21:02 Dose: 2 tab - Objective Vital Signs: Vital Signs Temperature 98.0 F 08/23/18 10:19 Pulse Rate 114 H 08/23/18 14:01 Respiratory Rate 24 H 08/23/18 14:01 Blood Pressure 138/80 08/23/18 14:01 O2 Sat by Pulse Oximetry (%) 97 08/23/18 09:00 Eyes: Yes: WNL, Conjunctiva Clear, EOM Intact HENT: Yes: WNL, Atraumatic, Normocephalic Neck: Yes: WNL, Supple, Trachea Midline Cardiovascular: Yes: WNL, Pulse Irregular Respiratory: Yes: WNL, Regular, CTA Bilaterally Gastrointestinal: Yes: WNL, Normal Bowel Sounds Genitourinary: Yes: WNL Musculoskeletal: Yes: WNL Extremities: Yes: WNL Edema: No Integumentary: Yes: WNL Neurological: Yes: WNL, Alert, Oriented ...Motor Strength: WNL Psychiatric: Yes: WNL Labs: CBC, BMP 08/22/18 06:20 08/21/18 08:50 INR, PTT INR 0.94 (0.83-1.09) 08/21/18 08:50 Problem List - Problems (1) Atrial fibrillation Code(s): I48.91 - UNSPECIFIED ATRIAL FIBRILLATION (2) CHF (congestive heart failure) Code(s): I50.9 - HEART FAILURE, UNSPECIFIED Qualifiers: Heart failure type: diastolic (3) COPD (chronic obstructive pulmonary disease) Code(s): J44.9 - CHRONIC OBSTRUCTIVE PULMONARY DISEASE, UNSPECIFIED (4) Cellulitis Code(s): L03.90 - CELLULITIS, UNSPECIFIED Qualifiers: Site of cellulitis: extremity Laterality: right (5) DM type 2 (diabetes mellitus, type 2) Code(s): E11.9 - TYPE 2 DIABETES MELLITUS WITHOUT COMPLICATIONS (6) Elevated troponin Code(s): R74.8 - ABNORMAL LEVELS OF OTHER SERUM ENZYMES (7) HTN (hypertension) Code(s): I10 - ESSENTIAL (PRIMARY) HYPERTENSION (8) Prophylactic measure Code(s): Z29.9 - ENCOUNTER FOR PROPHYLACTIC MEASURES, UNSPECIFIED (9) ASHD (arteriosclerotic heart disease) Code(s): I25.10 - ATHSCL HEART DISEASE OF [place] CORONARY ARTERY W/O ANG PCTRS (10) Bronchitis Code(s): J40 - BRONCHITIS, NOT SPECIFIED ACUTE OR CHRONIC (11) CKD (chronic kidney disease) Code(s): N18.9 - CHRONIC KIDNEY DISEASE, UNSPECIFIED Qualifiers: Chronic kidney disease stage: stage 3 (moderate) Qualified Code(s): N18.3 - Chronic kidney disease, stage 3 (moderate) (12) COPD exacerbation Code(s): J44.1 - CHRONIC OBSTRUCTIVE PULMONARY DISEASE W (ACUTE) EXACERBATION (13) Chest pain Code(s): R07.9 - CHEST PAIN, UNSPECIFIED (14) Pneumonia Code(s): J18.9 - PNEUMONIA, UNSPECIFIED ORGANISM (15) Sepsis Code(s): A41.9 - SEPSIS, UNSPECIFIED ORGANISM (16) Wheezing Code(s): R06.2 - WHEEZING Assessment/Plan - Problems (1) Polycystic kidney disease Code(s): Q61.3 - POLYCYSTIC KIDNEY, UNSPECIFIED (2) Atrial fibrillation Assessment/Plan: on diltiazdem for HR control (and BP). ON IV heparin for anticoagulation. Evaluate whether ASA needs to be continued. Code(s): I48.91 - UNSPECIFIED ATRIAL FIBRILLATION (3) Cellulitis Assessment/Plan: On antibiotics. Code(s): L03.90 - CELLULITIS, UNSPECIFIED Qualifiers: Site of cellulitis: extremity Laterality: right (4) DM type 2 (diabetes mellitus, type 2) Code(s): E11.9 - TYPE 2 DIABETES MELLITUS WITHOUT COMPLICATIONS (5) Elevated troponin Assessment/Plan: multiple contributors for demand ischemia, including AF with RVR; CHF, COPD, renal dysfunction, anemia. ECHO: normal LVEF. Code(s): R74.8 - ABNORMAL LEVELS OF OTHER SERUM ENZYMES (6) HTN (hypertension) Assessment/Plan: On hydralazine (add Imdur); diltiazem; IV furosemide. Code(s): I10 - ESSENTIAL (PRIMARY) HYPERTENSION (7) COPD exacerbation Code(s): J44.1 - CHRONIC OBSTRUCTIVE PULMONARY DISEASE W (ACUTE) EXACERBATION
--- NOTE | 2018-08-23 16:33 | PN ---
Progress Note (short form) - Note Progress Note: pt seen/ examined chart reviewed awake/ comfortable feels much better denies cp breathing better wants to go back to residential Vital Signs Temp 98.0 F 08/23/18 10:19 Pulse 114 H 08/23/18 14:01 Resp 24 H 08/23/18 14:01 BP 138/80 08/23/18 14:01 Pulse Ox 97 08/23/18 09:00 Intake & Output 08/22/18 08/23/18 08/23/18 23:59 11:59 23:59 Intake Total 360 50 Output Total 500 600 300 Balance -140 -550 -300 Weight 230 lb 3.2 oz Intake: IVPB 50 Oral 360 Output: Urine 500 600 300 Void 500 600 300 Other: Voiding Method Diaper Diaper Urinal # Unmeasured Voids Void 2 Bowel Movement Yes No Weight Measurement Method Built in [facility] Active Medications Acetaminophen (Tylenol -) 650 mg PO Q6H PRN PRN Reason: FEVER Last Admin: 08/20/18 23:10 Dose: 650 mg Albuterol/Ipratropium (Duoneb -) 1 amp NEB RQID [facility] Last Admin: 08/23/18 16:00 Dose: Not Given Apixaban (Eliquis -) 2.5 mg PO BID [facility] Last Admin: 08/23/18 10:21 Dose: 2.5 mg Artificial Tears (Artificial Tears) 1 drop OU Q4H PRN PRN Reason: DRY EYES Aspirin (Asa -) 81 mg PO DAILY [facility] Last Admin: 08/23/18 10:21 Dose: 81 mg Budesonide/Formoterol Fumarate (Symbicort 80/4.5mcg -) 2 puff IH BID [facility] Last Admin: 08/23/18 10:21 Dose: 2 puff Chlorhexidine Gluconate (Peridex -) 15 ml MM BID [facility] Last Admin: 08/23/18 10:24 Dose: Not Given Diltiazem HCl (Cardizem -) 60 mg PO TID [facility] Last Admin: 08/23/18 14:05 Dose: 60 mg Docusate Sodium (Colace -) 100 mg PO BID [facility] Last Admin: 08/23/18 10:22 Dose: 100 mg Ferrous Sulfate (Feosol -) 325 mg PO DAILY [facility] Last Admin: 08/23/18 10:21 Dose: 325 mg Furosemide (Lasix Injection -) 40 mg IVPUSH BID@0600,1400 [facility] Last Admin: 08/23/18 14:05 Dose: 40 mg Hydralazine HCl (Apresoline -) 50 mg PO TID [facility] Last Admin: 08/23/18 14:05 Dose: 50 mg Cefazolin Sodium/Dextrose (Ancef 2 Gm Premixed Ivpb -) 2 gm in 50 mls @ 100 mls /hr IVPB BID [facility] Last Admin: 08/23/18 10:22 Dose: 100 mls/hr Insulin Aspart (Novolog Vial Sliding Scale -) 1 vial SQ ACHS [facility]; Protocol Last Admin: 08/23/18 12:12 Dose: 2 unit Isosorbide Mononitrate (Imdur -) 30 mg PO DAILY [facility] Last Admin: 08/23/18 10:21 Dose: 30 mg Lactobacillus Acidophilus (Bacid -) 1 tab PO DAILY [facility] Last Admin: 08/23/18 10:21 Dose: 1 tab Mirtazapine (Remeron -) 30 mg PO [facility] Last Admin: 08/22/18 21:02 Dose: 30 mg Montelukast Sodium (Singulair -) 10 mg PO [facility] Last Admin: 08/22/18 21:02 Dose: 10 mg Multivitamins/Minerals/Vitamin C (Tab-A-Vit -) 1 tab PO DAILY [facility] Last Admin: 08/23/18 10:21 Dose: 1 tab Prednisone (Deltasone -) 10 mg PO DAILY [facility] Ranitidine HCl (Zantac -) 150 mg PO BID [facility] Last Admin: 08/23/18 10:21 Dose: 150 mg Senna (Senna -) 2 tab PO [facility] Last Admin: 08/22/18 21:02 Dose: 2 tab CBC, BMP 08/22/18 06:20 08/21/18 08:50 Physical Exam awake/ obese. lying in bed S1 and S2 irregular, lungs decreased breath sounds abdomen soft, obese, non tender. bs + Extremitiesedema has decreased bilaterally, as well as erythema. plan better Continue with antibiotics Continue with Lasix and monitoring renal function Echocardiogram reviewed Taper Prednisone Daily oob - chair Physical therapy will follow Problem List - Problems (1) CHF (congestive heart failure) Code(s): I50.9 - HEART FAILURE, UNSPECIFIED Qualifiers: Heart failure type: diastolic (2) Cellulitis Code(s): L03.90 - CELLULITIS, UNSPECIFIED Qualifiers: Site of cellulitis: extremity Laterality: right (3) Atrial fibrillation Code(s): I48.91 - UNSPECIFIED ATRIAL FIBRILLATION (4) COPD (chronic obstructive pulmonary disease) Code(s): J44.9 - CHRONIC OBSTRUCTIVE PULMONARY DISEASE, UNSPECIFIED (5) Elevated troponin Code(s): R74.8 - ABNORMAL LEVELS OF OTHER SERUM ENZYMES (6) HTN (hypertension) Code(s): I10 - ESSENTIAL (PRIMARY) HYPERTENSION (7) ASHD (arteriosclerotic heart disease) Code(s): I25.10 - ATHSCL HEART DISEASE OF [place] CORONARY ARTERY W/O ANG PCTRS
--- NOTE | 2018-08-23 16:55 | PN ---
Progress Note (short form) - Note Progress Note: no leg pain feels well Vital Signs Period Temp Pulse Resp BP Sys/Cruz Pulse Ox Last 24 Hr 98.0 F-98.3 F 91-130 18-24 114-159/65-94 96-97 cor-rrr lungs clear abd soft,nt ext much less erythema of the RLE CBC, BMP 08/22/18 06:20 08/21/18 08:50 imp/reccd RLE swelling and erythema c/w cellulitis new onset afib CKD cellulitis much improved can switch to po keflex 500 bid for 7 days in am please call back if needed d/w Dr Horan Problem List - Problems (1) Cellulitis Code(s): L03.90 - CELLULITIS, UNSPECIFIED Qualifiers: Site of cellulitis: extremity Laterality: right (2) Atrial fibrillation Code(s): I48.91 - UNSPECIFIED ATRIAL FIBRILLATION (3) CKD (chronic kidney disease) Code(s): N18.9 - CHRONIC KIDNEY DISEASE, UNSPECIFIED Qualifiers: Chronic kidney disease stage: stage 3 (moderate) Qualified Code(s): N18.3 - Chronic kidney disease, stage 3 (moderate)
[2018-08-23] MEDS ORDERED: MIRTAZAPINE 15 MG TABLET (FP) ONE (23:13)
[2018-08-23] MEDS: ACETAMINOPHEN 325 MG TABLET (FP) PO PRN (23:20)
[2018-08-23] MEDS: SENNOSIDES 8.6MG TABLET (FP) PO SCH ×2 (23:22→23:40)
[2018-08-23] MEDS: MIRTAZAPINE 30 MG TABLET (FP) PO SCH ×2 (23:23→23:40)
[2018-08-23] MEDS: MONTELUKAST NA 10 MG TABLET PO SCH ×2 (23:23→23:40)
[2018-08-24] MEDS: INSULIN SLIDING SCALE (NOVOLOG) 1 VIAL SQ SCH ×2 (06:07→11:21)
[2018-08-24] MEDS: dilTIAZem HCL 60 MG TABLET (FP) PO SCH (06:12)
[2018-08-24] MEDS: FUROSEMIDE 40 MG/4 ML INJECTABLE VIAL IVPUSH SCH (06:12)
[2018-08-24] MEDS: hydrALAZINE HCL 50 MG TABLET (FP) PO SCH ×2 (06:13→13:56)
[2018-08-24] MEDS: ALBUTEROL SO4 2.5/IPRATROPIUM 0.5 INH SOL 3 ML VIAL.NEB. NEB SCH ×3 (08:00→15:21)
--- NOTE | 2018-08-24 08:58 | PN ---
Progress Note, Physician History of Present Illness: 88 YOM with h/o polycystic kidney disease, CKD stage 4, AAA s/p repair, CAD and CABG in 2007, HTN, HLD, GERD, COPD, anemia, allergies, depression from [facility] with worsening SOB and leg swelling for the pat week. Patient had bilateral dopplers performed 3 days prior (08/17/2018) to presentation which ruled out clots. He states that he is on blood thinners but there are no records for any blood thinners. Denies any fevers, chills, nausea vomiting, diarrhea, or other symptoms. 08/20/18 18:56 - Current Medication List Current Medications: Active Medications Acetaminophen (Tylenol -) 650 mg PO Q6H PRN PRN Reason: FEVER Last Admin: 08/23/18 23:20 Dose: 650 mg Albuterol/Ipratropium (Duoneb -) 1 amp NEB RQID [facility] Last Admin: 08/23/18 23:01 Dose: 1 amp Apixaban (Eliquis -) 2.5 mg PO BID [facility] Last Admin: 08/23/18 23:40 Dose: Not Given Artificial Tears (Artificial Tears) 1 drop OU Q4H PRN PRN Reason: DRY EYES Aspirin (Asa -) 81 mg PO DAILY [facility] Last Admin: 08/23/18 10:21 Dose: 81 mg Budesonide/Formoterol Fumarate (Symbicort 80/4.5mcg -) 2 puff IH BID [facility] Last Admin: 08/23/18 23:24 Dose: 2 puff Chlorhexidine Gluconate (Peridex -) 15 ml MM BID [facility] Last Admin: 08/23/18 23:24 Dose: Not Given Diltiazem HCl (Cardizem -) 60 mg PO TID [facility] Last Admin: 08/24/18 06:12 Dose: 60 mg Docusate Sodium (Colace -) 100 mg PO BID [facility] Last Admin: 08/23/18 23:40 Dose: Not Given Ferrous Sulfate (Feosol -) 325 mg PO DAILY [facility] Last Admin: 08/23/18 10:21 Dose: 325 mg Furosemide (Lasix Injection -) 40 mg IVPUSH BID@0600,1400 [facility] Last Admin: 08/24/18 06:12 Dose: 40 mg Hydralazine HCl (Apresoline -) 50 mg PO TID [facility] Last Admin: 08/24/18 06:13 Dose: 50 mg Cefazolin Sodium/Dextrose (Ancef 2 Gm Premixed Ivpb -) 2 gm in 50 mls @ 100 mls /hr IVPB BID [facility] Last Admin: 08/23/18 23:28 Dose: 100 mls/hr Insulin Aspart (Novolog Vial Sliding Scale -) 1 vial SQ ACHS [facility]; Protocol Last Admin: 08/24/18 06:07 Dose: Not Given Isosorbide Mononitrate (Imdur -) 30 mg PO DAILY [facility] Last Admin: 08/23/18 10:21 Dose: 30 mg Lactobacillus Acidophilus (Bacid -) 1 tab PO DAILY [facility] Last Admin: 08/23/18 10:21 Dose: 1 tab Mirtazapine (Remeron -) 30 mg PO [facility] Last Admin: 08/23/18 23:40 Dose: Not Given Montelukast Sodium (Singulair -) 10 mg PO [facility] Last Admin: 08/23/18 23:40 Dose: Not Given Multivitamins/Minerals/Vitamin C (Tab-A-Vit -) 1 tab PO DAILY [facility] Last Admin: 08/23/18 10:21 Dose: 1 tab Prednisone (Deltasone -) 10 mg PO DAILY [facility] Ranitidine HCl (Zantac -) 150 mg PO BID [facility] Last Admin: 08/23/18 23:45 Dose: Not Given Senna (Senna -) 2 tab PO [facility] Last Admin: 08/23/18 23:40 Dose: Not Given - Objective Vital Signs: Vital Signs Temperature 97.8 F 08/24/18 05:20 Pulse Rate 107 H 08/24/18 05:20 Respiratory Rate 20 08/24/18 05:20 Blood Pressure 137/76 08/24/18 05:20 O2 Sat by Pulse Oximetry (%) 97 08/23/18 21:00 Eyes: Yes: WNL, Conjunctiva Clear, EOM Intact HENT: Yes: WNL, Atraumatic, Normocephalic Neck: Yes: WNL, Supple, Trachea Midline Cardiovascular: Yes: WNL, Regular Rate and Rhythm Respiratory: Yes: WNL, Regular, CTA Bilaterally Gastrointestinal: Yes: WNL, Normal Bowel Sounds Genitourinary: Yes: WNL Musculoskeletal: Yes: WNL Extremities: Yes: WNL Edema: No Integumentary: Yes: WNL Neurological: Yes: WNL, Alert, Oriented ...Motor Strength: WNL Psychiatric: Yes: WNL Labs: CBC, BMP 08/22/18 06:20 08/21/18 08:50 INR, PTT INR 0.94 (0.83-1.09) 08/21/18 08:50 Problem List - Problems (1) Atrial fibrillation Code(s): I48.91 - UNSPECIFIED ATRIAL FIBRILLATION (2) CHF (congestive heart failure) Code(s): I50.9 - HEART FAILURE, UNSPECIFIED Qualifiers: Heart failure type: diastolic (3) COPD (chronic obstructive pulmonary disease) Code(s): J44.9 - CHRONIC OBSTRUCTIVE PULMONARY DISEASE, UNSPECIFIED (4) Cellulitis Code(s): L03.90 - CELLULITIS, UNSPECIFIED Qualifiers: Site of cellulitis: extremity Laterality: right (5) DM type 2 (diabetes mellitus, type 2) Code(s): E11.9 - TYPE 2 DIABETES MELLITUS WITHOUT COMPLICATIONS (6) Elevated troponin Code(s): R74.8 - ABNORMAL LEVELS OF OTHER SERUM ENZYMES (7) HTN (hypertension) Code(s): I10 - ESSENTIAL (PRIMARY) HYPERTENSION (8) Prophylactic measure Code(s): Z29.9 - ENCOUNTER FOR PROPHYLACTIC MEASURES, UNSPECIFIED (9) ASHD (arteriosclerotic heart disease) Code(s): I25.10 - ATHSCL HEART DISEASE OF [place] CORONARY ARTERY W/O ANG PCTRS (10) Bronchitis Code(s): J40 - BRONCHITIS, NOT SPECIFIED ACUTE OR CHRONIC (11) CKD (chronic kidney disease) Code(s): N18.9 - CHRONIC KIDNEY DISEASE, UNSPECIFIED Qualifiers: Chronic kidney disease stage: stage 3 (moderate) Qualified Code(s): N18.3 - Chronic kidney disease, stage 3 (moderate) (12) COPD exacerbation Code(s): J44.1 - CHRONIC OBSTRUCTIVE PULMONARY DISEASE W (ACUTE) EXACERBATION (13) Chest pain Code(s): R07.9 - CHEST PAIN, UNSPECIFIED (14) Pneumonia Code(s): J18.9 - PNEUMONIA, UNSPECIFIED ORGANISM (15) Sepsis Code(s): A41.9 - SEPSIS, UNSPECIFIED ORGANISM (16) Wheezing Code(s): R06.2 - WHEEZING Assessment/Plan - Problems (1) Polycystic kidney disease Code(s): Q61.3 - POLYCYSTIC KIDNEY, UNSPECIFIED (2) Atrial fibrillation Assessment/Plan: on diltiazdem for HR control (and BP). ON IV heparin for anticoagulation. Evaluate whether ASA needs to be continued. Code(s): I48.91 - UNSPECIFIED ATRIAL FIBRILLATION (3) Cellulitis Assessment/Plan: On antibiotics. Code(s): L03.90 - CELLULITIS, UNSPECIFIED Qualifiers: Site of cellulitis: extremity Laterality: right (4) DM type 2 (diabetes mellitus, type 2) Code(s): E11.9 - TYPE 2 DIABETES MELLITUS WITHOUT COMPLICATIONS (5) Elevated troponin Assessment/Plan: multiple contributors for demand ischemia, including AF with RVR; CHF, COPD, renal dysfunction, anemia. ECHO: normal LVEF. Code(s): R74.8 - ABNORMAL LEVELS OF OTHER SERUM ENZYMES (6) HTN (hypertension) Assessment/Plan: On hydralazine (add Imdur); diltiazem; IV furosemide. Code(s): I10 - ESSENTIAL (PRIMARY) HYPERTENSION (7) COPD exacerbation Code(s): J44.1 - CHRONIC OBSTRUCTIVE PULMONARY DISEASE W (ACUTE) EXACERBATION
[2018-08-24] MEDS ORDERED: predniSONE 10 MG TABLET (UD) PO SCH (10:00)
[2018-08-24] MEDS: ACETAMINOPHEN 325 MG TABLET (FP) PO PRN (10:01)
[2018-08-24] MEDS: APIXABAN 2.5 MG TABLET PO SCH (10:02)
[2018-08-24] MEDS: ASPIRIN 81 MG CHEWABLE TABLETS PO SCH (10:02)
[2018-08-24] MEDS: FERROUS SO4 325 MG TABLET (FP) PO SCH (10:02)
[2018-08-24] MEDS: DOCUSATE SODIUM 100 MG CAPSULE (FP) PO SCH (10:02)
[2018-08-24] MEDS: ISOSORBIDE MONONITRATE 30 MG TAB.SR.24H (FP) PO SCH (10:02)
[2018-08-24] MEDS: RANITIDINE HCL 150 MG TABLET (FP) PO SCH (10:02)
[2018-08-24] MEDS: BUDESONIDE/FORMETEROL FUMARATE 80/4.5 mcg INHALER IH SCH (10:02)
[2018-08-24] MEDS: MULTIVITAMINS (DAILY MVI) TABLET (FP) PO SCH (10:02)
[2018-08-24] MEDS: LACTOBACILLUS ACIDOPHILUS 1 TABLET PO SCH (10:02)
[2018-08-24] MEDS: CEFAZOLIN 2 GM/D5W 2 GM/50 ML ML IVPB SCH (10:03)
[2018-08-24] MEDS: CHLORHEXIDINE GLUCONATE 0.12% 15ML CUP MM SCH (10:03)
--- NOTE | 2018-08-24 10:53 | DS ---
Physical Examination Vital Signs: Vital Signs Temperature 98.0 F 08/24/18 09:55 Pulse Rate 89 08/24/18 09:55 Respiratory Rate 22 H 08/24/18 09:55 Blood Pressure 108/50 L 08/24/18 09:55 O2 Sat by Pulse Oximetry (%) 97 08/24/18 09:00 Constitutional: Yes: No Distress, Calm Cardiovascular: Yes: Pulse Irregular Respiratory: Yes: Diminished Gastrointestinal: Yes: Normal Bowel Sounds, Soft, Abdomen, Obese. No: Tenderness Extremities: Yes: Erythema (decreased right leg) Edema: Yes (decreased) Neurological: Yes: Alert Labs: CBC, BMP 08/22/18 06:20 08/21/18 08:50 Discharge Summary Reason For Visit: EDEMA OF LOWER EXTREMITY/CONGESTIVE HEART FAILURE/ Current Active Problems Atrial fibrillation (Acute) CHF (congestive heart failure) (Acute) COPD (chronic obstructive pulmonary disease) (Acute) Cellulitis (Acute) DM type 2 (diabetes mellitus, type 2) (Acute) Elevated troponin (Acute) HTN (hypertension) (Acute) Polycystic kidney disease (Acute) Prophylactic measure (Acute) Hospital Course: - Admission Chief Complaint: LE edema, dyspnea History of Present Illness: 88 YOM with h/o polycystic kidney disease, CKD stage 4, AAA s/p repair, CAD and CABG in 2006, HTN, HLD, GERD, COPD, anemia, allergies, depression from [facility] with progressive lower extremity edema (R > L) over the last several days. Mr. Farah reports his RLE initially began to swell followed by redness and tenderness. He was evaluated by primary care provider at [facility] three days prior with b/l doppler studies which were negative for DVT. Patient referred from [facility] to [facility] for evaluation due to associated dyspnea , he denies CP/palpitations/Dizziness. Upon arrival to ED, pt noted to be in Afib on EKG (90bpm). CXR without evidence of acute lung disease. Vitals were BP 145/73, HR 82bpm T 98.7, RR 18 O 2 sat 100% (RA). Initial labs: BNP 8449, TRop #1 0.18, Creat 2.4. Pt given lasix 40mg IVP. Plan is to admit pt for serial cardiac enzymes, and management of Afib, and possible NSTEMI. Of note: Mr. Farah was admitted for toxic encephalopathy Apr 2018 in the setting of Acute bronchitis, pneumonia, and COPD exacerbation. seen by ID and Pulmonary and placed on Solumedrol & iv antibiotics with improvement in clinical status, pt was stabilized and discharged back to NH, with instruction to follow up with health care provider for CT angiogram d/t aneurysmal dilation. History Source: Patient HOSPITAL COURSE Evaluated by ID , Cardiology Pt has CKD 3-- creatinine 2.6 Unable to go for cT angiogram to evaluate aneurysm Was on iv antibiotic for rt leg cellulitis Better Cardiology evaluated pt-- now on Eliquis-- dc ASA Troponins were elavted likely due to demand ischemia He will need stress test as outpt May be discharged back to NH on PO Keflex x 7 days for cellulitis Eliquis for Afib DC ASA MRA to evaluate thoracic aneurysm --open MRA \ stable for dc to NH Condition: Improved - Instructions Referrals: Blossom Schwarz MD [Primary Care Provider] - Disposition: [facility] FACILITY - Home Medications Comprehensive Discharge Medication List: Ambulatory Orders Acetaminophen [Pain Relief] 1,000 mg PO Q4H PRN 04/21/18 Aspirin 81 mg PO DAILY 04/21/18 Budesonide/Formeterol Fumarate [SYMBICORT 80/4.5mcg -] 2 inh PO BID 04/21/18 Cholecalciferol (Vitamin D3) [Vitamin D3] 1,000 unit PO DAILY 04/21/18 Diltiazem [Cardizem -] 30 mg PO Q8H 04/21/18 Famotidine 20 mg PO DAILY 04/21/18 Ferrous Sulfate 325 mg PO DAILY 04/21/18 Hydralazine HCl 50 mg PO TID 04/21/18 Ipratropium/Albuterol Sulfate [Iprat-Albut 0.5-3(2.5) mg/3 ml] 1 neb IH Q6H 10/03 Mirtazapine 30 mg PO HS 04/21/18 Propylene Glycol/Peg 400/Pf [Systane 0.3-0.4% Eye Drop] 1 each OP Q4H PRN Sennosides [Senna Laxative] 1 tab PO HS 04/21/18 Chlorhexidine Gluconate [Peridex -] 15 ml MM BID 04/23/18 Docusate Sodium [Colace] 300 mg PO HS 08/20/18 Famotidine [Pepcid] 20 mg PO DAILY 08/20/18 Insulin Regular, Human [Humulin R U-500 Kwikpen] 6 unit SQ TID 08/20/18 Montelukast Sodium [Singulair] 10 mg PO HS 08/20/18 Multivitamin,Ther and Minerals [Vitamin and Minerals] 1 each PO DAILY 08/20/18 Protein Hydrolysate,Milk [Liquid Protein Fortifier] 30 ml PO BID 08/20/18 predniSONE [Deltasone -] See Taper PO BID 08/20/18
[2018-08-24 13:14] VITALS: BP 113/65; PULSE 87; TEMP 98.2
[2018-08-24] MEDS ORDERED: FUROSEMIDE 40 MG TABLET (FP) PO SCH (14:00)
== END 2018-08-24 16:06 | DRG 291 ==
LOC: JER 17:28 → JERBED 20:16 → J4W 08-21 16:28
PROVIDERS: ADMIT Internal Medicine; ATTEND Internal Medicine
DX: I13.0 Hypertensive heart and chronic kidney disease with heart failure and stage 1 through stage 4 chronic kidney disease, or unspecified chronic kidney disease (principal); I50.31 Acute diastolic (congestive) heart failure; I24.8 Other forms of acute ischemic heart disease; N18.4 Chronic kidney disease, stage 4 (severe); Q61.3 Polycystic kidney, unspecified; L03.115 Cellulitis of right lower limb; I25.10 Atherosclerotic heart disease of native coronary artery without angina pectoris; Z95.1 Presence of aortocoronary bypass graft; J44.9 Chronic obstructive pulmonary disease, unspecified; I48.91 Unspecified atrial fibrillation; E11.22 Type 2 diabetes mellitus with diabetic chronic kidney disease; K21.9 Gastro-esophageal reflux disease without esophagitis; E78.5 Hyperlipidemia, unspecified; E66.9 Obesity, unspecified; Z68.34 Body mass index [BMI] 34.0-34.9, adult; Z79.4 Long term (current) use of insulin
CPT/HCPCS: 36415; 71045-TC-FY; 80053; 80061; 82550; 82552; 82962; 83036; 83721; 83735; 83880; 84100; 84479; 84484; 85025; 85027; 85610; 85730; 93005; 93010; 93306-TC; 93971-TC; 94640; 99285-25

== ENCOUNTER 2018-12-14 08:49 | Day surgery (SDC) | payer OTHER ==
[2018-12-14] MEDS ORDERED: ACETAMINOPHEN 325 MG TABLET (FP) ONE (10:16)
[2018-12-14] MEDS ORDERED: FUROSEMIDE 40 MG/4 ML INJECTABLE VIAL IVPUSH SCH (10:45)
[2018-12-14] MEDS ORDERED: ACETAMINOPHEN 325 MG TABLET (FP) PO ONE (10:45)
[2018-12-14] MEDS ORDERED: ARTIFICIAL TEARS (POLYVINYL ALCOHOL) OPTH DROPS OU PRN (11:03)
[2018-12-14 11:15] LABS: HEMATOCRIT 25.9 % (35.4-49); HEMOGLOBIN 8.4 GM/dL (11.7-16.9); MCH 32.8 pg (25.7-33.7); MCHC 32.5 g/dl (32.0-35.9); MEAN CELL VOLUME 100.7 fl (80-96); MEAN PLT VOLUME 6.4 fl (7.5-11.1); RBC 2.58 M/mm3 (4.00-5.60); RDW 15.7 % (11.9-15.9); WHITE BLOOD COUNT 9.9 K/mm3 (4.0-10.0)
[2018-12-14 11:33] LABS: PLATELET COUNT 469 K/MM3 (134-434)
[2018-12-14 11:40] LABS: ALBUMIN 2.3 g/dl (3.4-5.0); BILIRUBIN,TOTAL 0.4 mg/dL (0.2-1); BLOOD UREA NITROGEN 54.8 mg/dL (7-18); CALCIUM 7.9 mg/dL (8.5-10.1); CREATININE 3.4 mg/dL (0.55-1.3); TOT PROT 5.2 g/dl (6.4-8.2)
[2018-12-14] MEDS ORDERED: guaiFENesin/D-M SUGAR-FREE/ACLHOL-FREE 118 ML BOTTLE PO PRN (11:56)
[2018-12-14] MEDS: ALBUTEROL SO4 2.5/IPRATROPIUM 0.5 INH SOL 3 ML VIAL.NEB. NEB SCH ×3 (12:00→20:25)
--- NOTE | 2018-12-14 13:19 | HP ---
Admitting History and Physical - Primary Care Physician PCP: Blossom Schwarz - Admission Chief Complaint: send from [facility] for Elective transfusion History of Present Illness: Pt seen/ examined chart reviewed comfortable History Source: Medical Record - Past Medical History Cardiovascular: Yes: CAD, HTN, Hyperlipdemia. 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 History of Recent Travel: No (echo 2 years ago) Home Medications - Allergies Allergies/Adverse Reactions: Allergies Allergy/AdvReac Type Severity Reaction Status Date / Time No Known Allergies Allergy Verified 08/20/18 20:23 - Home Medications Home Medications: Ambulatory Orders Acetaminophen [Pain Relief] 1,000 mg PO Q4H PRN 04/21/18 Budesonide/Formeterol Fumarate [SYMBICORT 80/4.5mcg -] 2 inh PO BID 04/21/18 Diltiazem [Cardizem -] 30 mg PO Q8H 04/21/18 Famotidine 20 mg PO DAILY 04/21/18 Ferrous Sulfate 325 mg PO DAILY 04/21/18 Hydralazine HCl 50 mg PO TID 04/21/18 Ipratropium/Albuterol Sulfate [Iprat-Albut 0.5-3(2.5) mg/3 ml] 1 neb IH Q6H 10/03 Mirtazapine 30 mg PO HS 04/21/18 Sennosides [Senna Laxative] 1 tab PO HS 04/21/18 Chlorhexidine Gluconate [Peridex -] 15 ml MM BID 04/23/18 Docusate Sodium [Colace] 300 mg PO HS 08/20/18 Insulin Regular, Human [Humulin R U-500 Kwikpen] 6 unit SQ TID 08/20/18 Montelukast Sodium [Singulair] 10 mg PO HS 08/20/18 Multivitamin,Ther and Minerals [Vitamin and Minerals] 1 each PO DAILY 08/20/18 Apixaban [Eliquis -] 2.5 mg PO BID #60 tablet 08/24/18 Furosemide [Lasix -] 40 mg PO BID@0600,1400 #30 tablet 08/24/18 Ascorbic Acid [Vitamin C] 1 cap PO BID 09/30/18 Aspirin [ASA -] 1 tab PO DAILY 09/30/18 Atorvastatin Ca [Lipitor] 1 tab PO DAILY 09/30/18 Cholecalciferol (Vitamin D3) [Vitamin D3] 1 cap PO DAILY 09/30/18 Diltiazem Cd [Cardizem Cd -] 1 cap PO DAILY 09/30/18 Diltiazem [Cardizem -] 1 tab PO TID 09/30/18 Ferrous Sulfate 1 tab PO DAILY 09/30/18 Metronidazole 1 tab PO TID 09/30/18 Multivitamin [One-Daily Multi-Vitamin] 1 tab PO DAILY 09/30/18 Potassium Chloride 1 tab PO DAILY 09/30/18 Potassium Chloride 1 tab PO HS 09/30/18 Prednisone 1 tab PO DAILY 09/30/18 Ranitidine [Zantac -] 1 tab PO BID 09/30/18 Vancomycin HCl [Firvanq] 250 mg PO TID 09/30/18 Family Disease History - Family Disease History Family Disease History: Other: Father ( (60s) lung cancer), Mother ( (50s) ? cancer), Brother ( alive (88) prostate disease), Sister (alive (90) CVA) Review of Systems - Review of Systems Constitutional: reports: Weakness. denies: No Symptoms Eyes: reports: No Symptoms Neck: reports: No Symptoms Cardiovascular: reports: No Symptoms Respiratory: reports: No Symptoms Neurological: reports: No Symptoms Psychiatric: reports: No Symptoms Physical Examination Constitutional: Yes: No Distress, Calm Eyes: Yes: Conjunctiva Clear Neck: Yes: Supple Cardiovascular: Yes: Pulse Irregular. No: Regular Rate and Rhythm Respiratory: Yes: Diminished Gastrointestinal: Yes: Soft Edema: No Neurological: Yes: Alert Labs: CBC, BMP 12/14/18 11:03 12/14/18 11:03 Imaging - Results Chest X-ray: Pending, Report Reviewed Problem List - Problems (1) Anemia requiring transfusions Code(s): D64.9 - ANEMIA, UNSPECIFIED (2) Atrial fibrillation Code(s): I48.91 - UNSPECIFIED ATRIAL FIBRILLATION (3) CKD (chronic kidney disease) Code(s): N18.9 - CHRONIC KIDNEY DISEASE, UNSPECIFIED Qualifiers: Chronic kidney disease stage: stage 3 (moderate) Qualified Code(s): N18.3 - Chronic kidney disease, stage 3 (moderate) Assessment/Plan Discussed Orders written transfuse post transfusion cbc Lasix in between transfusion overall stable Anticipate d/c later today or tomorrow Discussed with Nursing staff also
[2018-12-14] MEDS ORDERED: FUROSEMIDE 40 MG/4 ML INJECTABLE VIAL IVPUSH ONE (18:15)
[2018-12-14] MEDS: FUROSEMIDE 40 MG TABLET (FP) PO SCH (18:29)
[2018-12-14] MEDS: SODIUM BICARBONATE 650 MG TABLET PO SCH ×2 (18:30→18:33)
[2018-12-14] MEDS: LACTOBACILLUS ACIDOPHILUS 1 TABLET PO SCH (18:30)
[2018-12-14] MEDS: APIXABAN 2.5 MG TABLET PO SCH ×3 (18:30→21:18)
[2018-12-14] MEDS: ESCITALOPRAM OXALATE 10 MG TABLET (FP) PO SCH (18:31)
[2018-12-14] MEDS: FERROUS SO4 325 MG TABLET (FP) PO SCH (18:31)
[2018-12-14] MEDS: AZITHROMYCIN 250 MG TABLET PO SCH (18:31)
[2018-12-14] MEDS: ZINC SULFATE 220 MG CAPSULE (FP) PO SCH (18:32)
[2018-12-14] MEDS: BUDESONIDE/FORMETEROL FUMARATE 80/4.5 mcg INHALER IH SCH ×2 (18:32→21:19)
[2018-12-14] MEDS: SILVER SULFADIAZINE 1% TOP CREAM 50 GM JAR TP SCH (18:32)
[2018-12-14] MEDS: POTASSIUM CHLORIDE TABS 20 MEQ TABLET.ER (FP) PO SCH (18:32)
[2018-12-14] MEDS: RANITIDINE HCL 150 MG TABLET (FP) PO SCH ×3 (18:32→21:19)
[2018-12-14] MEDS: CHOLECALCIFEROL (VIT D3) 1,000 UNIT (25 MCG) TABLET PO SCH (18:32)
[2018-12-14] MEDS: predniSONE 5 MG TABLET (UD) PO SCH (18:33)
[2018-12-14] MEDS: hydrALAZINE HCL 50 MG TABLET (FP) PO SCH ×2 (18:53→20:59)
[2018-12-14] MEDS: ASCORBIC ACID 500 MG TABLET (FP) PO SCH ×3 (18:56→21:19)
[2018-12-14] MEDS ORDERED: PT OWN MED DRAWER 7, Y5N ONE (19:20)
[2018-12-14] MEDS: MONTELUKAST NA 10 MG TABLET PO SCH ×2 (20:54→21:19)
[2018-12-14] MEDS: SENNOSIDES 8.6MG TABLET (FP) PO SCH ×2 (20:54→21:19)
[2018-12-14] MEDS: ACETAMINOPHEN 325 MG TABLET (FP) PO PRN (20:54)
[2018-12-14] MEDS: DOCUSATE SODIUM 100 MG CAPSULE (FP) PO SCH ×2 (20:55→21:18)
[2018-12-14] MEDS: MIRTAZAPINE 15 MG TABLET (FP) PO SCH ×2 (20:55→21:18)
[2018-12-14] MEDS: ATORVASTATIN CA 10 MG TABLET (FP) PO SCH ×2 (20:55→21:18)
[2018-12-15] MEDS: FUROSEMIDE 40 MG TABLET (FP) PO SCH (05:56)
[2018-12-15] MEDS: hydrALAZINE HCL 50 MG TABLET (FP) PO SCH ×2 (05:56→15:39)
[2018-12-15] MEDS: ALBUTEROL SO4 2.5/IPRATROPIUM 0.5 INH SOL 3 ML VIAL.NEB. NEB SCH ×3 (07:44→16:35)
[2018-12-15] MEDS ORDERED: INSULIN (LEVEMIR) 100 UNITS/ML UNITS SQ SCH (08:30)
[2018-12-15 09:17] LABS: BASO % 0.6 % (0-2.0); HEMATOCRIT 28.9 % (35.4-49); HEMOGLOBIN 9.5 GM/dL (11.7-16.9); LYMPH % 19.5 % (8-40); MCH 31.9 pg (25.7-33.7); MCHC 32.8 g/dl (32.0-35.9); MEAN CELL VOLUME 97.3 fl (80-96); MEAN PLT VOLUME 6.7 fl (7.5-11.1); MONO % 7.3 % (3.8-10.2); NEUT % 70.6 % (42.8-82.8); PLATELET COUNT 460 K/MM3 (134-434); RBC 2.97 M/mm3 (4.00-5.60); RDW 18.5 % (11.9-15.9); WHITE BLOOD COUNT 10.5 K/mm3 (4.0-10.0)
[2018-12-15] MEDS: ACETAMINOPHEN 325 MG TABLET (FP) PO PRN (09:36)
[2018-12-15 09:52] LABS: ALBUMIN 2.3 g/dl (3.4-5.0); BILIRUBIN,TOTAL 0.5 mg/dL (0.2-1); BLOOD UREA NITROGEN 52.3 mg/dL (7-18); CREATININE 3.1 mg/dL (0.55-1.3); POTASSIUM 3.5 mmol/L (3.5-5.1); TOT PROT 5.4 g/dl (6.4-8.2)
[2018-12-15] MEDS: APIXABAN 2.5 MG TABLET PO SCH (11:13)
[2018-12-15] MEDS: ZINC SULFATE 220 MG CAPSULE (FP) PO SCH (11:13)
[2018-12-15] MEDS: LACTOBACILLUS ACIDOPHILUS 1 TABLET PO SCH (11:13)
[2018-12-15] MEDS: predniSONE 5 MG TABLET (UD) PO SCH (11:13)
[2018-12-15] MEDS: CHOLECALCIFEROL (VIT D3) 1,000 UNIT (25 MCG) TABLET PO SCH (11:13)
[2018-12-15] MEDS: AZITHROMYCIN 250 MG TABLET PO SCH (11:14)
[2018-12-15] MEDS: SODIUM BICARBONATE 650 MG TABLET PO SCH ×2 (11:14→15:39)
[2018-12-15] MEDS: ESCITALOPRAM OXALATE 10 MG TABLET (FP) PO SCH (11:15)
[2018-12-15] MEDS: RANITIDINE HCL 150 MG TABLET (FP) PO SCH (11:15)
[2018-12-15] MEDS: FERROUS SO4 325 MG TABLET (FP) PO SCH (11:15)
[2018-12-15] MEDS: POTASSIUM CHLORIDE TABS 20 MEQ TABLET.ER (FP) PO SCH (11:15)
[2018-12-15] MEDS: SILVER SULFADIAZINE 1% TOP CREAM 50 GM JAR TP SCH (11:15)
[2018-12-15] MEDS: ASCORBIC ACID 500 MG TABLET (FP) PO SCH (11:16)
--- NOTE | 2018-12-15 14:13 | DS ---
Physical Examination Vital Signs: Vital Signs Temperature 97.7 F 12/15/18 06:24 Pulse Rate 92 H 12/15/18 06:24 Respiratory Rate 18 12/15/18 06:24 Blood Pressure 133/62 12/15/18 06:24 O2 Sat by Pulse Oximetry (%) Findings/Remarks: comfortable Constitutional: Yes: No Distress, Calm Eyes: Yes: Conjunctiva Clear Neck: Yes: Supple Cardiovascular: Yes: Regular Rate and Rhythm. No: Pulse Irregular Respiratory: Yes: Diminished Edema: LLE: Trace, RLE: Trace Neurological: Yes: Alert Labs: CBC, BMP 12/15/18 08:54 12/15/18 08:54 Discharge Summary Reason For Visit: ANEMIA OF CKD STAGE 4 Current Active Problems Anemia requiring transfusions (Acute) Hospital Course: CAME FOR ELECTIVE TRANSFUSION Given one unit of prbcs concern for failure- chf h/h - good stable chronic issues will send back to alf meds same Discussed with nursing staff also. Condition: Stable - Instructions Disposition: LONG TERM FACILITY - Home Medications Comprehensive Discharge Medication List: Ambulatory Orders Acetaminophen [Pain Relief] 1,000 mg PO Q4H PRN 04/21/18 Budesonide/Formeterol Fumarate [SYMBICORT 80/4.5mcg -] 2 inh PO BID 04/21/18 Diltiazem [Cardizem -] 30 mg PO Q8H 04/21/18 Famotidine 20 mg PO DAILY 04/21/18 Ferrous Sulfate 325 mg PO DAILY 04/21/18 Hydralazine HCl 50 mg PO TID 04/21/18 Ipratropium/Albuterol Sulfate [Iprat-Albut 0.5-3(2.5) mg/3 ml] 1 neb IH Q6H 10/03 Mirtazapine 30 mg PO HS 04/21/18 Sennosides [Senna Laxative] 1 tab PO HS 04/21/18 Chlorhexidine Gluconate [Peridex -] 15 ml MM BID 04/23/18 Docusate Sodium [Colace] 300 mg PO HS 08/20/18 Insulin Regular, Human [Humulin R U-500 Kwikpen] 6 unit SQ TID 08/20/18 Montelukast Sodium [Singulair] 10 mg PO HS 08/20/18 Multivitamin,Ther and Minerals [Vitamin and Minerals] 1 each PO DAILY 08/20/18 Apixaban [Eliquis -] 2.5 mg PO BID #60 tablet 08/24/18 Furosemide [Lasix -] 40 mg PO BID@0600,1400 #30 tablet 08/24/18 Ascorbic Acid [Vitamin C] 1 cap PO BID 09/30/18 Aspirin [ASA -] 1 tab PO DAILY 09/30/18 Atorvastatin Ca [Lipitor] 1 tab PO DAILY 09/30/18 Cholecalciferol (Vitamin D3) [Vitamin D3] 1 cap PO DAILY 09/30/18 Diltiazem Cd [Cardizem Cd -] 1 cap PO DAILY 09/30/18 Diltiazem [Cardizem -] 1 tab PO TID 09/30/18 Ferrous Sulfate 1 tab PO DAILY 09/30/18 Metronidazole 1 tab PO TID 09/30/18 Multivitamin [One-Daily Multi-Vitamin] 1 tab PO DAILY 09/30/18 Potassium Chloride 1 tab PO DAILY 09/30/18 Potassium Chloride 1 tab PO HS 09/30/18 Prednisone 1 tab PO DAILY 09/30/18 Ranitidine [Zantac -] 1 tab PO BID 09/30/18 Vancomycin HCl [Firvanq] 250 mg PO TID 09/30/18
[2018-12-15] MEDS: BUDESONIDE/FORMETEROL FUMARATE 80/4.5 mcg INHALER IH SCH (15:38)
[2018-12-15 15:53] VITALS: BP 123/60; PULSE 69; TEMP 98.7
== END 2018-12-15 18:30 ==
LOC: JBLOOD 08:49 → J7W 08:50 → JBLOOD 12-15 18:30
PROVIDERS: ATTEND Internal Medicine
PROC: 30233N1 Transfusion of Nonautologous Red Blood Cells into Peripheral Vein, Percutaneous Approach (ICD-10-PCS; principal; 2018-12-14)
DX: D64.9 Anemia, unspecified (principal); I12.9 Hypertensive chronic kidney disease with stage 1 through stage 4 chronic kidney disease, or unspecified chronic kidney disease; E11.22 Type 2 diabetes mellitus with diabetic chronic kidney disease; N18.4 Chronic kidney disease, stage 4 (severe); Z79.4 Long term (current) use of insulin
CPT/HCPCS: 36415; 36430; 71045-TC-FY; 80053; 82962; 85025; 85027; 86850; 86900; 86901; 86922; 94640; P9038; P9058